=== PATIENT | male | born 1945 | race Caucasian/White ===

== ENCOUNTER 2019-04-13 16:45 | Inpatient (IN) | payer MEDICARE ==
[~2019-04-13] VITALS: Ht 175.3 cm; Wt 52.2 kg
[2019-04-13] MEDS ORDERED: PRED20TA (17:02)
[2019-04-13] MEDS ORDERED: CEFU1TAB22 (17:02)
[2019-04-13] MEDS ORDERED: ALBU8.5H INH (17:02)
[2019-04-13] MEDS ORDERED: methylPREDNISolone INJ 125 MG/2 ML VIAL (J2930) IV ONE (17:15)
[2019-04-13] MEDS: IPRATROPIUM 0.5MG/ALBUTEROL 2.5MG INH SOL UD 3ML (DUONEB)(J7620) NEB PRN ×2 (17:23→17:36)
[2019-04-13 17:27] LABS: BASO % 0.2 % (0.0-1.0); HEMATOCRIT 42.8 % (42.0-52.0); LYMPH # 0.7 10^3/uL (1.5-5.0); LYMPH % 3.6 % (24.0-44.0); MEAN CORPUSCULAR HEMOGLOBIN 30.4 pg (27.0-33.0); MEAN CORPUSCULAR HGB CONC 32.7 g/dl (32.0-36.5); MEAN CORPUSCULAR VOLUME 92.8 fl (80.0-96.0); MONO # 1.2 10^3/uL (0.0-0.8); MONO % 6.3 % (0.0-5.0); NEUTROPHILS # 16.9 10^3/uL (1.5-8.5); NEUTROPHILS % 88.6 % (36.0-66.0); PLATELET COUNT, AUTOMATED 196 10^3/uL (150-450); RED BLOOD COUNT 4.61 10^6/uL (4.30-6.10); WHITE BLOOD COUNT 19.1 10^3/uL (4.0-10.0)
[2019-04-13 17:30] LABS: ABG BASE EXCESS -7.4 (-2.0-2.0); ABG HCO3 16.5 MEQ/L (22.0-26.0); ABG O2 SATURATION 91.9 % (95.0-99.0); ABG PARTIAL PRESSURE CO2 29.2 mmHg (35.0-45.0); ABG PARTIAL PRESSURE O2 63.9 mmHg (75.0-100.0); ABG STANDARD HCO3 18.4 MEQ/L (22.0-26.0); ABG TOTAL CO2 17.4 MEQ/L (23.0-31.0); ABG pH (ARTERIAL) 7.369 UNITS (7.350-7.450)
[2019-04-13 18:03] LABS: INFLUENZA A AMPLIFICATION NEGATIVE (NEGATIVE); INFLUENZA B AMPLIFICATION NEGATIVE (NEGATIVE)
[2019-04-13 18:21] LABS: ALBUMIN 3.2 GM/DL (3.2-5.2); BILIRUBIN,DIRECT 1.2 MG/DL (0.0-0.2); BILIRUBIN,TOTAL 2.1 MG/DL (0.2-1.0); CALCIUM LEVEL 8.5 MG/DL (8.8-10.2); CK-MB VALUE MASS 15.2 NG/ML (<3.6); CREATININE FOR GFR 1.33 MG/DL (0.70-1.30); GLOMERULAR FILTRATION RATE 56.3 (>42); MB/CK RELATIVE INDEX 3.65 (< OR =4); POTASSIUM SERUM 5.6 MEQ/L (3.5-5.1); THYROID STIMULATING HORMONE 2.67 uIU/ML (0.358-3.740); TOTAL PROTEIN 6.6 GM/DL (6.4-8.2); TROPONIN I 0.11 NG/ML (< 0.10)
--- NOTE | 2019-04-13 18:33 | REPVR ---
PROCEDURE INFORMATION: Exam: US Duplex Lower Extremity Veins Exam date and time: 04/13/2019 6:26 PM Age: 73 years old Clinical indication: Edema, localized; Lower extremity, bilateral; Additional info: Edema, R/O dvt TECHNIQUE: Imaging protocol: Real-time duplex ultrasound of the Lower Extremities with 2-D henry scale, color Doppler flow and spectral waveform analysis with image documentation. Complete exam focused on the bilateral lower extremity veins. COMPARISON: No relevant prior studies available. FINDINGS: Right deep veins: Unremarkable. The common femoral, femoral, proximal profunda femoral and popliteal veins are patent without thrombus. Normal Doppler waveforms. Normal compressibility and/or augmentation response. Right superficial veins: Saphenofemoral junction is patent without thrombus. Left deep veins: Unremarkable. The common femoral, femoral, proximal profunda femoral and popliteal veins are patent without thrombus. Normal Doppler waveforms. Normal compressibility and/or augmentation response. Left superficial veins: Saphenofemoral junction is patent without thrombus. Soft tissues: Bilateral lower leg edema. IMPRESSION: Bilateral lower leg edema. No DVT. Electronically signed by: Carlos Koch On 04/13/2019 18:33:15 PM
[2019-04-13] MEDS ORDERED: ISOVUE-370 76% 100ML VIAL (Q9967) As Ordered ONE (18:51)
[2019-04-13 19:07] LABS: FREE T4 1.3 NG/DL (0.76-1.46)
[2019-04-13 19:43] LABS: OSMOLALITY URINE 788 MOSM/KG (500-800)
[2019-04-13 20:05] LABS: SODIUM,RANDOM URINE < 10 MEQ/L
--- NOTE | 2019-04-13 20:05 | REPVR ---
PROCEDURE INFORMATION: Exam: CT Angiography Chest With Contrast Exam date and time: 04/13/2019 7:35 PM Age: 73 years old Clinical indication: Chest pain; Additional info: SOB, hypoxia TECHNIQUE: Imaging protocol: Computed tomographic angiography of the chest with intravenous contrast. 3D rendering: MIP and/or 3D reconstructed images were created by the technologist. Radiation optimization: All CT scans at this facility use at least one of these dose optimization techniques: automated exposure control; mA and/or kV adjustment per patient size (includes targeted exams where dose is matched to clinical indication); or iterative reconstruction. Contrast material: ISOVUE 370; Contrast volume: 75 ml; Contrast route: IV; COMPARISON: No relevant prior studies available. FINDINGS: Pulmonary arteries: Normal. No pulmonary emboli. Aorta: The aorta demonstrates mild atherosclerotic calcification. There is fusiform dilatation of the ascending thoracic aorta which measures 3.8 cm. maximally. There is no saccular component. Lack of contrast in the aorta limits evaluation for dissection. Lungs: Mild centrilobular emphysema demonstrated in the mid and upper lung zones. Nodular opacity anterior left upper lobe measures 11 x 12 mm may represent a semi-solid nodule containing significant solid component versus a focus of peripheral airway disease. Coarse parenchymal infiltrates demonstrated in the right upper lobe, both lower lobes with small patchy foci demonstrated in the lingular lobe and right middle lobe. Findings may represent multifocal pneumonitis. Pleural space: Small bilateral pleural effusions. Heart: There is severe atherosclerotic calcification of the coronary arteries. Lymph nodes: There is diffuse mediastinal lymphadenopathy measuring up to 14 mm in the pretracheal retrocaval area, 14 mm in the as is as azygoesophageal recess, and 17 mm in the AP window. Bones/joints: The spine demonstrates mild degenerative changes. Soft tissues: There is soft tissue edema demonstrated in the thoracic wall consistent with anasarca. IMPRESSION: 1. Mild centrilobular emphysema demonstrated in the mid and upper lung zones. 2. Nodular opacity anterior left upper lobe measures represent a semi-solid nodule containing significant solid component versus a focus of peripheral airway disease. 3. Small bilateral pleural effusions. 4. Coarse parenchymal infiltrates demonstrated in the right upper lobe, both lower lobes with small patchy foci demonstrated in the lingular lobe and right middle lobe. Findings may represent multifocal pneumonitis. 5. Anasarca. 6. There is diffuse mediastinal lymphadenopathy measuring up to 14 mm in the pretracheal retrocaval area, 14 mm in the as is as azygoesophageal recess, and 17 mm in the AP window. 7. There is fusiform dilatation of the ascending thoracic aorta which measures 3.8 cm. maximally. There is no saccular component. Lack of contrast in the aorta limits evaluation for dissection. Follow-up CT imaging after treatment is completed suggested. Electronically signed by: Carlos Koch On 04/13/2019 20:05:10 PM
[2019-04-13] MEDS ORDERED: FUROSEMIDE 40 MG/4 ML VIAL (J1940) IV ONE (20:30)
[2019-04-13] MEDS ORDERED: NICOTINE 21MG/24HR 1 EA TRANSDERMAL TD ONE (20:45)
[2019-04-13] MEDS ORDERED: AZITHROMYCIN INJ 500 MG, VIAL MATE ADAPTER 1 EACH in D5W 250 ML IV SCH (22:00)
[2019-04-13] MEDS ORDERED: LEVALBUTEROL 1.25 MG/0.5 ML CONCENTRATE NEB INH PRN (22:30)
[2019-04-14 01:17] LABS: BLOOD UREA NITROGEN 41 MG/DL (7-18); CALCIUM LEVEL 8.4 MG/DL (8.8-10.2); CARBON DIOXIDE LEVEL 24 MEQ/L (21-32); CHLORIDE LEVEL 83 MEQ/L (98-107); CREATININE FOR GFR 1.06 MG/DL (0.70-1.30); GLOMERULAR FILTRATION RATE > 60.0 (>42); GLUCOSE, FASTING 128 MG/DL (70-100); POTASSIUM SERUM 5.5 MEQ/L (3.5-5.1); SODIUM LEVEL 119 MEQ/L (136-145)
[2019-04-14] MEDS: FUROSEMIDE 40 MG/4 ML VIAL (J1940) IV SCH ×5 (01:28→23:47)
[2019-04-14] MEDS: methylPREDNISolone INJ 40 MG/1 ML VIAL (J2920) IV SCH ×3 (01:44→17:24)
[2019-04-14] MEDS: LEVALBUTEROL 1.25 MG/0.5 ML CONCENTRATE NEB INH SCH ×7 (01:44→18:44)
[2019-04-14 02:01] LABS: BLOOD UREA NITROGEN 42 MG/DL (7-18); CALCIUM LEVEL 8.2 MG/DL (8.8-10.2); CARBON DIOXIDE LEVEL 24 MEQ/L (21-32); CHLORIDE LEVEL 83 MEQ/L (98-107); CREATININE FOR GFR 1.02 MG/DL (0.70-1.30); GLOMERULAR FILTRATION RATE > 60.0 (>42); GLUCOSE, FASTING 135 MG/DL (70-100); POTASSIUM SERUM 5.6 MEQ/L (3.5-5.1); SODIUM LEVEL 117 MEQ/L (136-145)
--- NOTE | 2019-04-14 02:05 | HPEPDOC ---
General Date of Admission Apr 13, 2019 at 21:52 Date of Service: Apr 13, 2019 Chief Complaint The patient is a 73-year-old male who presented to the emergency room with complaints of shortness of breath History of Present Illness Patient is a 73-year-old male with no significant past medical history who has presented to the emergency room with complaints of shortness of breath. Patient has reported that he has been experiencing shortness of breath around [place] and since that point has seen urgent care on March 24. At that point he was diagnosed with bronchitis and was given 10 days of cefotetan, prednisone and inhalers. Patient had failed to improve and subsequently followed up on April 03, he was given an additional 5 days of cefotetan. Patient followed up on April 07 while on cefotetan and still reported shortness of breath. They increased the dose of his prednisone and advised him to continue. Today, patient reported that he was experiencing worsening shortness of breath that has prompted him to come to the emergency room for further evaluation. Currently, he notes that hes experiencing shortness of breath with lower extremity swelling up to his abdomen. Patient reports that he does experience a cough with clear/yellow colored sputum without any evidence of blood. He does not experience any chest pain or palpitations. Patient denies any fevers or chills. He has not experienced any nausea, vomiting, abdominal pain, or constipation. . He has reported 2 loose bowel movements today. Patient denies any urinary discomfort, but does report increased frequency/urgency. Has reported that his appetite has been unchanged and reports he may have e xperienced changes in his weight. Home Medications Scheduled Albuterol Sulfate (Albuterol Sulfate Hfa) 8.5 Gm Hfa.aer.ad, 2 PUFF INH TID, (Reported) DR INSTRUCTED PT TO TAKE TID FOR TEN DAYS THEN CONTINUE NEEDED Allergies Coded Allergies: No Known Drug Allergies (Verified Allergy, Unknown, 04/13/19) Past Medical History Medical History Patient has not seen a provider in many years and reports no past medical history Surgical History Denies any prior surgeries Family History - Patient reports that he is adopted and is unsure of his family history Social History - Denies the use of alcohol or illicit drugs; patient is an active smoker of greater than 50 years at 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 [employer] Review of Systems Other systems 10 point review of systems complete, all negative otherwise stated in HPI Vital Signs - Vitals: BP 108/70, HR 102, RR 20, Sat 97%RA, Temp 96.9F - General: Lying in bed, No acute distress, Speaking in full sentences, AAOx3 - HEENT: NC, AT, PERRLA, EOMI - CVS: RRR, +S1S2 - Lungs: Diminished lung sounds at bases; mild wheezing appreciated bilaterally; mild crackles appreciated at bases, no rhonchi - Abdomen: Soft, Non-distended, Non-tender - Extremities: 3+ pitting edema up to the abdomen, No calf tenderness - Neuro: No focal motor or sensory deficit - Skin: No visible rashes Laboratory Data Labs 24H Laboratory Tests 2 04/13/19 17:12: Immature Granulocyte % (Auto) 1.3, Neutrophils (%) (Auto) 88.6H, Lymphocytes (%) (Auto) 3.6L, Monocytes (%) (Auto) 6.3H, Eosinophils (%) (Auto) 0.0, Basophils (%) (Auto) 0.2, Neutrophils # (Auto) 16.9H, Lymphocytes # (Auto) 0.7L, Monocytes # (Auto) 1.2H, Eosinophils # (Auto) 0.0, Basophils # (Auto) 0.0, Nucleated Red Blood Cells % (auto) 0.2H, Anion Gap 17H, Glomerular Filtration Rate 56.3, Calcium Level 8.5L, Total Bilirubin 2.1H, Direct Bilirubin 1.2H, Aspartate Amino Transf (AST/SGOT) 91H, Alanine Aminotransferase (ALT/SGPT) 239H, Alkaline Phosphatase 111, Total Creatine Kinase 417H, Creatine Kinase MB 15.2H, Creatine Kinase MB Relative Index 3.65, Troponin I 0.11H, NN-Itd-Y-Type Natriuretic Peptide 56398X, Total Protein 6.6, Albumin 3.2, Albumin/Globulin Ratio 0.94L, Thyroid Stimulating Hormone (TSH) 2.670, Free Thyroxine 1.30 04/13/19 17:17: Blood Gas Bicarbonate Standard 18.4L, Arterial Blood pH 7.369, Arterial Blood Partial Pressure CO2 29.2L, Arterial Blood Partial Pressure O2 63.9L, Arterial Blood Total CO2 17.4L, Arterial Blood HCO3 16.5L, Arterial Blood Base Excess - 7.4L, Arterial Blood Oxygen Saturation 91.9L 04/13/19 17:20: Influenza Type A (RT-PCR) NEGATIVE, Influenza Type B (RT-PCR) NEGATIVE 04/13/19 19:25: Urine Random Osmolality 788, Urine Random Creatinine 129.0, Urine Random Sodium < 10, Osmolality 263L 04/13/19 22:01: Anion Gap 10, Glomerular Filtration Rate > 60.0, Calcium Level 8.2L 04/13/19 23:12: Urine Color STRAW, Urine Appearance CLEAR, Urine pH 5.0, Urine Specific [place] 1.013, Urine Protein NEGATIVE, Urine Glucose (UA) NEGATIVE, Urine Ketones NEGATIVE, Urine Blood 1+H, Urine Nitrite NEGATIVE, Urine Bilirubin NEGATIVE, Urine Urobilinogen 0.2, Urine Leukocyte Esterase NEGATIVE, Urine WBC (Auto) 0, Urine RBC (Auto) 0, Urine Hyaline Casts (Auto) 0, Urine Bacteria (Auto) NEGATIVE, Urine Squamous Epithelial Cells 0, Urine Granular Casts (Auto) 1, Urine Sperm (Auto) 04/14/19 00:43: Anion Gap 12, Glomerular Filtration Rate > 60.0, Calcium Level 8.4L CBC/BMP Laboratory Tests 04/13/19 17:12 04/13/19 22:01 04/14/19 00:43 Microbiology Microbiology 04/14/19 Blood Culture, Received Pending 04/13/19 Respiratory Virus Panel (PCR) ([facility]INO) - Final, Complete Plan / VTE VTE Prophylaxis Ordered?: Yes Plan Plan Shortness of breath - possibly 2/2 fluid overload - 2/2 CHF, possibly 2/2 acute exacerbation of suspected obstructive lung disease, possibly 2/2 pneumonia (coverage for HCAP) - Patient has presented to the emergency room with complaint of shortness of breath that has failed to improve - He has failed outpatient antibiotics with cefotetan - Patient remains hemodynamically stable and afebrile - Mild leukocytosis is noted with neutrophil predominance - Significantly elevated BNP at 33,823 - CTA chest 04/14: 1. Mild centrilobular emphysema demonstrated in the mid and upper lung zones. 2. Nodular opacity anterior left upper lobe measures represent a semi-solid nodule containing significant solid component versus a focus of peripheral airway disease. 3. Small bilateral pleural effusions. 4. Coarse parenchymal infiltrates demonstrated in the right upper lobe, both lower lobes with small patchy foci demonstrated in the lingular lobe and right middle lobe. Findings may represent multifocal pneumonitis. 5. Anasarca. 6. There is diffuse mediastinal lymphadenopathy measuring up to 14 mm in the pretracheal retrocaval area, 14 mm in the as is as zygoesophageal recess, and 17 mm in the AP window. 7. There is fusiform dilatation of the ascending thoracic aorta which measures 3.8 cm. maximally. There is no saccular component. Lack of contrast in the aorta limits evaluation for dissection. Follow-up CT imaging after treatment is co mpleted suggested. - Respiratory panel negative - Will check ECHO, MRSA screen, blood cultures, sputum cultures - Will c/w telemetry monitoring / strict in and outs / daily weights - Will insert santamaria for accurate I/Os - Will continue with furosemide 40mg IV negative protocol / corticosteroids / in haled therapy as ordered / broad spectrum antibiotics (Zosyn) Hyponatremia - likely 2/2 hypotonic hypervolemic etiology - Patient appears to be grossly fluid overloaded - Will check serum & urine osmolality / thyroid function / cortisol baseline - Will continue to monitor BMP q4h - Will c/w diuresis (as stated above) Acute kidney injury - likely 2/2 cardiorenal syndrome - Will c/w diuresis (as stated above) Elevated AST / ALT - possibly 2/2 hepatic congestion 2/2 CHF, possibly 2/2 hepatitis - ALT > AST - Will check hepatitis profile - Will check US abdomen - Will continue to monitor counts Elevated troponin - possibly 2/2 demand ischemia (NSTEMI Type II) - 2/2 CHF - Patient denies chest pain or palpitations - EKG noted - set at 0.11; will trend troponins - Will c/w telemetry monitoring - Will continue with diuresis Hyperkalemia - Will c/w diuresis at this time - Will f/u repeat BMPs DVT prophylaxis - Will start Heparin ED GOMES MD Apr 14, 2019 02:05
[2019-04-14] MEDS: PIPERACILLIN/TAZOBACTAM SOD 3.375 GM in D5W MINI-BAG PLUS 50 ML IV SCH ×5 (02:15→23:47)
[2019-04-14 02:17] LABS: CK-MB VALUE MASS 18.3 NG/ML (<3.6); CPK CREATINE PHOSPHOKINASE 597 U/L (39-308); MB/CK RELATIVE INDEX 3.07 (< OR =4); TROPONIN I 0.12 NG/ML (< 0.10)
[2019-04-14 03:05] LABS: INR 1.52
--- NOTE | 2019-04-14 04:28 | REPVR ---
PROCEDURE INFORMATION: Exam: US Abdomen Limited, Right Upper Quadrant Exam date and time: 04/14/2019 3:24 AM Age: 73 years old Clinical indication: Abnormal findings; Abnormal lab test; Elevated liver enzymes; Additional info: Elevated ast / alt TECHNIQUE: Imaging protocol: Real-time ultrasound of the abdomen with image documentation. Examination was focused on the right upper quadrant. COMPARISON: No relevant prior studies available. FINDINGS: Pleural space: Trace right pleural effusion. Liver: 1 cm echogenic lesion in the left hepatic lobe possibly reflecting a hemangioma. Gallbladder: Trace pericholecystic fluid without specific signs of acute cholecystitis. Common bile duct: Normal. No stones. No dilation. Pancreas: Visualized pancreas is unremarkable. Right kidney: Normal. No mass. No hydronephrosis. IMPRESSION: 1 cm echogenic lesion in the left hepatic lobe possibly reflecting a hemangioma. Trace pericholecystic fluid without specific signs of acute cholecystitis. Electronically signed by: Stevie Vila On 04/14/2019 04:28:03 AM
[2019-04-14 04:40] LABS: ACETAMINOPHEN LEVEL < 2.0 UG/ML (10.0-30.0)
[2019-04-14 05:46] LABS: BASO % 0.2 % (0.0-1.0); HEMATOCRIT 40.2 % (42.0-52.0); HEMOGLOBIN 13.4 g/dl (13.5-17.5); LYMPH # 0.4 10^3/uL (1.5-5.0); LYMPH % 1.6 % (24.0-44.0); MEAN CORPUSCULAR HGB CONC 33.3 g/dl (32.0-36.5); MEAN CORPUSCULAR VOLUME 89.9 fl (80.0-96.0); MONO # 1.1 10^3/uL (0.0-0.8); MONO % 4.6 % (0.0-5.0); NEUTROPHILS # 21.8 10^3/uL (1.5-8.5); PLATELET COUNT, AUTOMATED 164 10^3/uL (150-450); RED BLOOD COUNT 4.47 10^6/uL (4.30-6.10); WHITE BLOOD COUNT 23.5 10^3/uL (4.0-10.0)
[2019-04-14 06:27] LABS: BILIRUBIN,TOTAL 2.4 MG/DL (0.2-1.0); CALCIUM LEVEL 8.2 MG/DL (8.8-10.2); CK-MB VALUE MASS 23.3 NG/ML (<3.6); CREATININE FOR GFR 1.28 MG/DL (0.70-1.30); GLOMERULAR FILTRATION RATE 58.8 (>42); MAGNESIUM LEVEL 2.1 MG/DL (1.8-2.4); MB/CK RELATIVE INDEX 2.36 (< OR =4); POTASSIUM SERUM 5.4 MEQ/L (3.5-5.1); TROPONIN I 0.16 NG/ML (< 0.10)
[2019-04-14] MEDS: HEPARIN SOD (PORCINE) 5000 UNITS/ML VIAL (J1644 PER 1000UNITS) SC SCH ×3 (07:10→21:35)
[2019-04-14] MEDS ORDERED: FLUBLOK(EGG FREE)(QUAD)INFLUENZA VACC 0.5ML SYRINGE (90682)18YRS&OLDER IM PRN (09:00)
[2019-04-14 14:30] VITALS: BP 118/61
[2019-04-14 16:00] VITALS: BP 120/72
[2019-04-14 17:22] LABS: CALCIUM LEVEL 8.8 MG/DL (8.8-10.2); CREATININE FOR GFR 1.27 MG/DL (0.70-1.30); GLOMERULAR FILTRATION RATE 59.3 (>42); POTASSIUM SERUM 5.2 MEQ/L (3.5-5.1)
--- NOTE | 2019-04-14 20:39 | ECGEPIP ---
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
[2019-04-14 21:00] VITALS: BP 114/64
[2019-04-14] MEDS: AZITHROMYCIN 250 MG TAB PO SCH (21:36)
[2019-04-15] VITALS (23 sets, daily range): BP systolic 76–125; BP diastolic 49–89
[2019-04-15 00:11] LABS: BLOOD UREA NITROGEN 42 MG/DL (7-18); CALCIUM LEVEL 8.4 MG/DL (8.8-10.2); CARBON DIOXIDE LEVEL 25 MEQ/L (21-32); CHLORIDE LEVEL 86 MEQ/L (98-107); CREATININE FOR GFR 1.21 MG/DL (0.70-1.30); GLOMERULAR FILTRATION RATE > 60.0 (>42); GLUCOSE, FASTING 114 MG/DL (70-100); POTASSIUM SERUM 4.5 MEQ/L (3.5-5.1); SODIUM LEVEL 122 MEQ/L (136-145)
[2019-04-15] MEDS: LEVALBUTEROL 1.25 MG/0.5 ML CONCENTRATE NEB INH SCH ×7 (00:12→23:38)
[2019-04-15] MEDS: methylPREDNISolone INJ 40 MG/1 ML VIAL (J2920) IV SCH ×3 (01:23→16:56)
[2019-04-15 04:12] LABS: BASO % 0.1 % (0.0-1.0); HEMATOCRIT 37.7 % (42.0-52.0); HEMOGLOBIN 12.6 g/dl (13.5-17.5); LYMPH # 0.5 10^3/uL (1.5-5.0); LYMPH % 2.3 % (24.0-44.0); MEAN CORPUSCULAR HEMOGLOBIN 29.7 pg (27.0-33.0); MEAN CORPUSCULAR HGB CONC 33.4 g/dl (32.0-36.5); MEAN CORPUSCULAR VOLUME 88.9 fl (80.0-96.0); MONO # 0.8 10^3/uL (0.0-0.8); MONO % 3.6 % (0.0-5.0); NEUTROPHILS # 20.2 10^3/uL (1.5-8.5); NEUTROPHILS % 93.4 % (36.0-66.0); PLATELET COUNT, AUTOMATED 154 10^3/uL (150-450); RED BLOOD COUNT 4.24 10^6/uL (4.30-6.10); WHITE BLOOD COUNT 21.6 10^3/uL (4.0-10.0)
[2019-04-15] MEDS ORDERED: METOPROLOL 5 MG/5 ML VIAL IV STA (04:33)
[2019-04-15] MEDS ORDERED: METOPROLOL 5 MG/5 ML VIAL As Ordered ONE (04:33)
[2019-04-15 04:41] LABS: ALBUMIN 2.7 GM/DL (3.2-5.2); ALT/SGPT 375 U/L (12-78); BILIRUBIN,TOTAL 1.6 MG/DL (0.2-1.0); BLOOD UREA NITROGEN 42 MG/DL (7-18); CALCIUM LEVEL 8.2 MG/DL (8.8-10.2); CARBON DIOXIDE LEVEL 25 MEQ/L (21-32); CHLORIDE LEVEL 85 MEQ/L (98-107); CREATININE FOR GFR 1.25 MG/DL (0.70-1.30); GLOMERULAR FILTRATION RATE > 60.0 (>42); GLUCOSE, FASTING 124 MG/DL (70-100); POTASSIUM SERUM 4.7 MEQ/L (3.5-5.1); SODIUM LEVEL 122 MEQ/L (136-145); TOTAL PROTEIN 5.7 GM/DL (6.4-8.2)
[2019-04-15] MEDS ORDERED: METOPROLOL TART 25 MG TABLET PO ONE (05:00)
[2019-04-15] MEDS: PIPERACILLIN/TAZOBACTAM SOD 3.375 GM in D5W MINI-BAG PLUS 50 ML IV SCH ×4 (05:18→23:25)
[2019-04-15] MEDS: HEPARIN SOD (PORCINE) 5000 UNITS/ML VIAL (J1644 PER 1000UNITS) SC SCH ×3 (05:19→21:36)
[2019-04-15] MEDS: FUROSEMIDE 40 MG/4 ML VIAL (J1940) IV SCH ×4 (06:00→23:28)
--- NOTE | 2019-04-15 07:05 | ECGEPIP ---
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
[2019-04-15] MEDS ORDERED: DIGOXIN INJ 0.5 MG/2 ML AMP (J1160) IV ONE (08:30)
[2019-04-15] MEDS: SENOKOT S TAB PO SCH ×2 (09:00→21:00)
[2019-04-15] MEDS: NICOTINE 21MG/24HR 1 EA TRANSDERMAL TD SCH (09:12)
[2019-04-15 10:13] LABS: HEPATITIS B SURFACE ANTIGEN NEGATIVE (NEGATIVE)
[2019-04-15 10:41] LABS: HEPATITIS B CORE ANTIBODY IGM NEGATIVE (NEGATIVE); HEPATITIS C VIRUS ABY INDEX < 0.0 INDEX (<0.8)
[2019-04-15 10:43] LABS: HEPATITIS A ANTIBODY IGM NEGATIVE (NEGATIVE)
[2019-04-15] MEDS ORDERED: DIGOXIN 0.125 MG TAB PO ONE (11:30)
--- NOTE | 2019-04-15 12:32 | IPNPDOC ---
Subjective Date Seen The patient was seen on 04/14/19. Subjective Chief Complaint/HPI Feels a little better, says his leg swelling has gone down and he is urinating well. Breathing and cough is a little better. Objective Physical Examination General Exam: Positive: Alert, Cooperative, No Acute Distress Eye Exam: Positive: PERRLA, Conjunctiva & lids normal, EOMI; Negative: Sclera icteric ENT Exam: Positive: Atraumatic, Mucous membr. moist/pink, Pharynx Normal Neck Exam: Positive: JVD Chest Exam: Positive: Rales, Rhonchi, Wheezing Heart Exam: Positive: Rate Normal, Regular Rhythm, Normal S1, Normal S2, Murmurs; Negative: Rubs Abdomen Exam: Positive: Normal bowel sounds, Soft; Negative: Tenderness, Hepatospenomegaly Extremity Exam: Positive: Edema; Negative: Clubbing, Cyanosis Neuro Exam: Positive: Normal Speech, Cranial Nerves 3-12 NL, Reflexes 2+ Assessment /Plan Assessment Shortness of breath - possibly 2/2 fluid overload - 2/2 CHF, possibly 2/2 acute exacerbation of suspected obstructive lung disease, possibly 2/2 pneumonia (coverage for HCAP) - Patient has presented to the emergency room with complaint of shortness of breath that has failed to improve - He has failed outpatient antibiotics with cefotetan - Patient remains hemodynamically stable and afebrile - Mild leukocytosis is noted with neutrophil predominance - Significantly elevated BNP at 33,823 - CTA chest 04/14: 1. Mild centrilobular emphysema demonstrated in the mid and upper lung zones. 2. Nodular opacity anterior left upper lobe measures represent a semi-solid nodule containing significant solid component versus a focus of peripheral airway disease. 3. Small bilateral pleural effusions. 4. Coarse parenchymal infiltrates demonstrated in the right upper lobe, both lower lobes with small patchy foci demonstrated in the lingular lobe and right middle lobe. Findings may represent multifocal pneumonitis. 5. Anasarca. 6. There is diffuse mediastinal lymphadenopathy measuring up to 14 mm in the pretracheal retrocaval area, 14 mm in the as is as zygoesophageal recess, and 17 mm in the AP window. 7. There is fusiform dilatation of the ascending thoracic aorta which measures 3.8 cm. maximally. There is no saccular component. Lack of contrast in the aorta limits evaluation for dissection. Follow-up CT imaging after treatment is completed suggested. - Respiratory panel negative - Will check ECHO, MRSA screen, blood cultures, sputum cultures - Will c/w telemetry monitoring / strict in and outs / daily weights - Will insert santamaria for accurate I/Os - Will continue with furosemide 40mg IV negative protocol / corticosteroids / inhaled therapy as ordered / broad spectrum antibiotics (Zosyn) Hyponatremia - likely 2/2 hypotonic hypervolemic etiology - Patient appears to be grossly fluid overloaded - Will check serum & urine osmolality / thyroid function / cortisol baseline - Will continue to monitor BMP q4h - Will c/w diuresis (as stated above) Acute kidney injury - likely 2/2 cardiorenal syndrome - Will c/w diuresis (as stated above) Elevated AST / ALT - possibly 2/2 hepatic congestion 2/2 CHF, possibly 2/2 hepatitis - ALT > AST - Will check hepatitis profile - Will check US abdomen - Will continue to monitor counts Elevated troponin - possibly 2/2 demand ischemia (NSTEMI Type II) - 2/2 CHF - Patient denies chest pain or palpitations - EKG noted - set at 0.11; will trend troponins - Will c/w telemetry monitoring - Will continue with diuresis Hyperkalemia - Will c/w diuresis at this time - Will f/u repeat BMPs DVT prophylaxis - Will start Heparin Plan/VTE VTE Prophylaxis Ordered?: Yes VS, I&O, 24H, [facility] Vital Signs/I&O Vital Signs Date Time Temp Pulse Resp B/P (MAP) Pulse Ox O2 Delivery O2 Flow Rate FiO2 04/14/19 11:15 98 116/71 (86) 94 04/14/19 03:19 Room Air 04/14/19 01:45 2.0 04/13/19 18:54 20 04/13/19 16:56 96.9 I&O- Last 24 Hours up to 6 AM 04/14/19 06:00 Intake Total 545 ml Output Total 825 ml Balance -280 ml Laboratory Data 24H LABS Laboratory Tests 2 04/13/19 17:12: Immature Granulocyte % (Auto) 1.3, Neutrophils (%) (Auto) 88.6H, Lymphocytes (%) (Auto) 3.6L, Monocytes (%) (Auto) 6.3H, Eosinophils (%) (Auto) 0.0, Basophils (%) (Auto) 0.2, Neutrophils # (Auto) 16.9H, Lymphocytes # (Auto) 0.7L, Monocytes # (Auto) 1.2H, Eosinophils # (Auto) 0.0, Basophils # (Auto) 0.0, Nucleated Red B lood Cells % (auto) 0.2H, Anion Gap 17H, Glomerular Filtration Rate 56.3, Calcium Level 8.5L, Total Bilirubin 2.1H, Direct Bilirubin 1.2H, Aspartate Amino Transf (AST/SGOT) 91H, Alanine Aminotransferase (ALT/SGPT) 239H, Alkaline Phosphatase 111, Total Creatine Kinase 417H, Creatine Kinase MB 15.2H, Creatine Kinase MB Relative Index 3.65, Troponin I 0.11H, EF-Dgw-O-Type Natriuretic Peptide 96380A, Total Protein 6.6, Albumin 3.2, Albumin/Globulin Ratio 0.94L, Thyroid Stimulating Hormone (TSH) 2.670, Free Thyroxine 1.30 04/13/19 17:17: Blood Gas Bicarbonate Standard 18.4L, Arterial Blood pH 7.369, Arterial Blood Partial Pressure CO2 29.2L, Arterial Blood Partial Pressure O2 63.9L, Arterial Blood Total CO2 17.4L, Arterial Blood HCO3 16.5L, Arterial Blood Base Excess -7.4L, Arterial Blood Oxygen Saturation 91.9L 04/13/19 17:20: Influenza Type A (RT-PCR) NEGATIVE, Influenza Type B (RT-PCR) NEGATIVE 04/13/19 19:25: Urine Random Osmolality 788, Urine Random Creatinine 129.0, Urine Random Sodium < 10, Osmolality 263L 04/13/19 22:01: Anion Gap 10, Glomerular Filtration Rate > 60.0, Calcium Level 8.2L, Total C reatine Kinase 597H, Creatine Kinase MB 18.3H, Creatine Kinase MB Relative Index 3.07, Troponin I 0.12H, Acetaminophen Level < 2.0L 04/13/19 23:12: Urine Color STRAW, Urine Appearance CLEAR, Urine pH 5.0, Urine Specific [place] 1.013, Urine Protein NEGATIVE, Urine Glucose (UA) NEGATIVE, Urine Ketones NEGATIVE, Urine Blood 1+H, Urine Nitrite NEGATIVE, Urine Bilirubin NEGATIVE, Urine Urobilinogen 0.2, Urine Leukocyte Esterase NEGATIVE, Urine WBC (Auto) 0, Urine RBC (Auto) 0, Urine Hyaline Casts (Auto) 0, Urine Bacteria (Auto) NEGATIVE, Urine Squamous Epithelial Cells 0, Urine Granular Casts (Auto) 1, Urine Sperm (Auto) 04/14/19 00:43: Anion Gap 12, Glomerular Filtration Rate > 60.0, Calcium Level 8.4L 04/14/19 02:38: Prothrombin Time 18.0H, Prothromb Time International Ratio 1.52 04/14/19 05:33: Immature Granulocyte % (Auto) 0.6, Neutrophils (%) (Auto) 93.0H, Lymphocytes (%) (Auto) 1.6L, Monocytes (%) (Auto) 4.6, Eosinophils (%) (Auto) 0.0, Basophils (%) (Auto) 0.2, Neutrophils # (Auto) 21.8H, Lymphocytes # (Auto) 0.4L, Monocytes # (Auto) 1.1H, Eosinophils # (Auto) 0.0, Basophils # (Auto) 0.0, Nucleated Red Blood Cells % (auto) 0.1H, Anion Gap 11, Glomerular Filtration Rate 58.8, Calcium Level 8.2L, Magnesium Level 2.1, Total Bilirubin 2.4H, Aspartate Amino Transf (AST/SGOT) 303H, Alanine Aminotransferase (ALT/SGPT) 448H, Alkaline Phosphatase 101, Total Creatine Kinase 986H, Creatine Kinase MB 23.3H, Creatine Kinase MB Relative Index 2.36, Troponin I 0.16#H, Total Protein 6.0L, Albumin 3.0L, Albumin/Globulin Ratio 1.00 CBC/BMP Laboratory Tests 04/13/19 17:12 04/13/19 22:01 04/14/19 00:43 04/14/19 05:33 Microbiology Microbiology 04/14/19 Blood Culture, Received Pending 04/14/19 Blood Culture, Received Pending 04/13/19 Respiratory Virus Panel (PCR) ([facility]) - Final, Complete WAQAS ADAN MD Apr 14, 2019 12:06
--- NOTE | 2019-04-15 12:53 | IPNPDOC ---
Subjective Date Seen The patient was seen on 04/15/19. Subjective Chief Complaint/HPI Patient says he is feeling much better, His SOb is better, his leg swelling is going down. Denies any palpitation or chest pain. denies any abdominal pain, nausea or vomiting. Overnight he went into Afib with RVr. Objective Physical Examination General Exam: Positive: Alert, Cooperative, No Acute Distress Eye Exam: Positive: PERRLA, Conjunctiva & lids normal, EOMI; Negative: Sclera icteric ENT Exam: Positive: Atraumatic, Mucous membr. moist/pink, Pharynx Normal Neck Exam: Positive: JVD Chest Exam: Positive: Rales, Rhonchi, Wheezing Heart Exam: Positive: Tachycardic, Irregular Rhythm, Normal S1, Normal S2, Murmurs; Negative: Rubs Telemetry: Positive: Atrial fibrillation Abdomen Exam: Positive: Normal bowel sounds, Soft; Negative: Tenderness, Hepatospenomegaly Extremity Exam: Positive: Edema (improving); Negative: Clubbing, Cyanosis Neuro Exam: Positive: Normal Speech, Cranial Nerves 3-12 NL, Reflexes 2+ Assessment /Plan Assessment 73 year old male with h/o hay fever, allergies, asthma as a teenager which disappeared ad has been healthy and not seen a doctor for many years started experiencing shortness of breath around [place] and since that point has seen urgent care on March 24. At that point he was diagnosed with bronchitis and was given 10 days of cefotetan, prednisone and inhalers. had 2 other follow ups with no improvement so came to the ed. In the ED he was found to have acute CHF, COPD exacerbation and pneumonia/ pneumonitis CTA chest 04/14: 1. Mild centrilobular emphysema demonstrated in the mid and upper lung zones. 2. Nodular opacity anterior left upper lobe measures represent a semi-solid nodule containing significant solid component versus a focus of peripheral airway disease. 3. Small bilateral pleural effusions. 4. Coarse parenchymal infiltrates demonstrated in the right upper lobe, both lower lobes with small patchy foci demonstrated in the lingular lobe and right middle lobe. Findings may represent multifocal pneumonitis. 5. Anasarca. 6. There is diffuse mediastinal lymphadenopathy measuring up to 14 mm in the pretracheal retrocaval area, 14 mm in the as is as zygoesophageal recess, and 17 mm in the AP window. 7. There is fusiform dilatation of the ascending thoracic aorta which measures 3.8 cm. maximally. There is no saccular component. Lack of contrast in the aorta limits evaluation for dissection. Follow-up CT imaging after treatment is completed suggested. Afib with RVR new onset BP soft will give digoxin IV loading will consider diltiazem if needed and if tolerated by BP. will consult cardiology. Acute CHF, possibly 2/2 acute exacerbation of suspected obstructive lung disease, possibly 2/2 pneumonia (coverage for HCAP) Patient has presented to the emergency room with complaint of shortness of breath that has failed to improve Significantly elevated BNP at 33,823 Echo ordered will continue with IV lasix as tolerated with BP. COPD/ emphysima exacerbation has not been diagnosed with COPD but is a long time smoker. Also CT chest shows emphysema will continue with xopenex, steroids Pneumonia failed outpateint antibiotics. on zosy Hyponatremia due to CHF wit hypervolemia continue with diuresis. Acute kidney injury likely 2/2 cardiorenal syndrome Will c/w diuresis (as stated above) Elevated AST / ALT - possibly 2/2 hepatic congestion 2/2 CHF hepatits panel in progress continue lasix. Elevated troponin possibly 2/2 demand ischemia (NSTEMI Type II) - 2/2 CHF Vs false elevation of troponins due to CHF. No signs or symptoms of acute ischemia. Hyperkalemia resolved DVT prophylaxis Heparin Plan/VTE VTE Prophylaxis Ordered?: Yes VS, I&O, 24H, Fishbone Vital Signs/I&O Vital Signs Date Time Temp Pulse Resp B/P (MAP) Pulse Ox O2 Delivery O2 Flow Rate FiO2 04/15/19 11:46 133 04/15/19 10:42 125/54 (77) 97 Room Air 04/15/19 07:38 18 04/15/19 04:02 97.7 04/14/19 01:45 2.0 I&O- Last 24 Hours up to 6 AM 04/15/19 05:59 Intake Total 1030 ml Output Total 2040 ml Balance -1010 ml Laboratory Data 24H LABS Laboratory Tests 2 04/14/19 14:39: Methicillin-Resist S.aureus DNA PCR NOT DETECTED 04/14/19 16:43: Anion Gap 13, Glomerular Filtration Rate 59.3, Calcium Level 8.8 04/14/19 23:36: Anion Gap 11, Glomerular Filtration Rate > 60.0, Calcium Level 8.4L, Magnesium Level 2.0 04/15/19 04:00: Anion Gap 12, Glomerular Filtration Rate > 60.0, Calcium Level 8.2L, Magnesium Level 2.0, Immature Granulocyte % (Auto) 0.6, Neutrophils (%) (Auto) 93.4H, Lymphocytes (%) (Auto) 2.3L, Monocytes (%) (Auto) 3.6, Eosinophils (%) (Auto) 0.0, Basophils (%) (Auto) 0.1, Neutrophils # (Auto) 20.2H, Lymphocytes # (Auto) 0.5L, Monocytes # (Auto) 0.8, Eosinophils # (Auto) 0.0, Basophils # (Auto) 0.0, Nucleated Red Blood Cells % (auto) 0.2H, Total Bilirubin 1.6H, Aspartate Amino Transf (AST/SGOT) 191H, Alanine Aminotransferase (ALT/SGPT) 375H, Alkaline Phosphatase 86, Total Protein 5.7L, Albumin 2.7L, Albumin/Globulin Ratio 0.90L CBC/BMP Laboratory Tests 04/14/19 16:43 04/14/19 23:36 04/15/19 04:00 Microbiology Microbiology 04/14/19 Gram Stain - Final, Complete 04/14/19 Sputum Culture - Final, Complete 04/14/19 Blood Culture - Preliminary, Resulted No growth after 24 hours . All specim... 04/14/19 Blood Culture - Preliminary, Resulted No growth after 24 hours . All specim... 04/13/19 Respiratory Virus Panel (PCR) ([facility]) - Final, Complete WAQAS ADAN MD Apr 15, 2019 12:35
[2019-04-15] MEDS ORDERED: BISACODYL 5 MG TAB PO ONE (14:00)
[2019-04-15 17:27] LABS: CALCIUM LEVEL 8.4 MG/DL (8.8-10.2); CREATININE FOR GFR 1.73 MG/DL (0.70-1.30); GLOMERULAR FILTRATION RATE 41.5 (>42); POTASSIUM SERUM 4.7 MEQ/L (3.5-5.1)
[2019-04-15] MEDS ORDERED: AMIODARONE HCL 150 MG in IV 1 EA IV STA (19:17)
--- NOTE | 2019-04-15 20:35 | ECHO ---
DATE OF PROCEDURE: 04/15/2019 REFERRING PHYSICIAN: Phuong Locke MD PATIENT LOCATION: Room 3202 REASON FOR ECHOCARDIOGRAM: Sob. 2D MEASUREMENTS: IVS: 1.0 cm LV: 6.4 cm LVPW: 1.0 cm LA: 4.3 cm Aorta: 3.8 cm IVC: 2.5 cm DOPPLER MEASUREMENTS: Peak velocity across the aortic valve: 0/67 m/s Mitral E: 0.91 Maximum tricuspid valve velocity: 2.7 m/s 2D COMMENTS: 1. Mildly enlarged left ventricle with normal left ventricular wall thickness but a severely depressed global left ventricular systolic function. There was severe diffuse global hypokinesis and the estimated left ventricular systolic ejection fraction is 10-20%. 2. Mildly enlarged left atrium. The right atrium also appear to be mildly enlarged. Normal right ventricle. 3. The atrial septum appeared to be normal without evidence of defect or shunt. 4. Mildly enlarged aortic root at 3.8 cm. 5. Trace pericardial effusion noted, no evidence of cardiac tamponade. 6. Mildly calcified aortic valve with normal leaflet excursion. Mildly calcified mitral annulus with normal anterior mitral leaflet motion. Normal tricuspid valve and pulmonic valve. The proximal pulmonary artery branches were not well visualized. 7. The inferior vena cava was mildly enlarged, central venous pressure is most likely elevated. DOPPLER: It detects mild aortic regurgitation, moderate mitral regurgitation, mild pulmonic regurgitation, and moderate tricuspid regurgitation. The calculated pulmonary artery systolic pressure varies between 30-40 mmHg. Assessment of the left ventricular diastolic function was limited in view of the underlying atrial fibrillation. IMPRESSION 1. Severe global left ventricular systolic dysfunction with diffuse hypokinesis and enlarged left ventricle. Assessment of the left ventricular diastolic function was limited in view of the underlying atrial fibrillation. 2. Aortic valve sclerosis with mild aortic regurgitation, but no aortic stenosis. 3. Mitral annulus calcification with mildly enlarged left atrium and moderate mitral regurgitation. 4. Moderate tricuspid regurgitation with mild pulmonary hypertension. The right atrium is also mildly enlarged. 5. Mild pulmonic regurgitation. 6. Trace pericardial effusion, no evidence of cardiac tamponade. 7. There was evidence of elevated central venous pressure, the inferior vena cava was mildly enlarged. MTDD
[2019-04-15] MEDS: AZITHROMYCIN 250 MG TAB PO SCH (21:35)
[2019-04-16] VITALS (7 sets, daily range): BP systolic 96–151; BP diastolic 70–84
[2019-04-16] MEDS: methylPREDNISolone INJ 40 MG/1 ML VIAL (J2920) IV SCH ×3 (00:01→17:47)
[2019-04-16] MEDS ORDERED: AMIODARONE HCL 150 MG in IV 1 EA IV STA (00:12)
[2019-04-16] MEDS ORDERED: DIGOXIN INJ 0.5 MG/2 ML AMP (J1160) IV ONE ×2 (01:00→15:00)
[2019-04-16] MEDS: METOPROLOL TART 12.5 MG PER 1/2 TAB PO SCH ×4 (02:27→17:49)
[2019-04-16] MEDS: PIPERACILLIN/TAZOBACTAM SOD 3.375 GM in D5W MINI-BAG PLUS 50 ML IV SCH ×3 (05:03→17:47)
[2019-04-16] MEDS: HEPARIN SOD (PORCINE) 5000 UNITS/ML VIAL (J1644 PER 1000UNITS) SC SCH ×3 (05:03→21:46)
[2019-04-16 06:50] LABS: BASO % 0.1 % (0.0-1.0); HEMATOCRIT 37.2 % (42.0-52.0); HEMOGLOBIN 12.8 g/dl (13.5-17.5); LYMPH # 0.6 10^3/uL (1.5-5.0); LYMPH % 3.2 % (24.0-44.0); MEAN CORPUSCULAR HEMOGLOBIN 30.2 pg (27.0-33.0); MEAN CORPUSCULAR HGB CONC 34.4 g/dl (32.0-36.5); MEAN CORPUSCULAR VOLUME 87.7 fl (80.0-96.0); MONO # 0.5 10^3/uL (0.0-0.8); MONO % 2.6 % (0.0-5.0); NEUTROPHILS # 17.1 10^3/uL (1.5-8.5); NEUTROPHILS % 93.4 % (36.0-66.0); PLATELET COUNT, AUTOMATED 161 10^3/uL (150-450); RED BLOOD COUNT 4.24 10^6/uL (4.30-6.10); WHITE BLOOD COUNT 18.3 10^3/uL (4.0-10.0)
[2019-04-16 07:17] LABS: ALBUMIN 2.5 GM/DL (3.2-5.2); BILIRUBIN,TOTAL 2.4 MG/DL (0.2-1.0); CALCIUM LEVEL 7.9 MG/DL (8.8-10.2); CREATININE FOR GFR 1.85 MG/DL (0.70-1.30); GLOMERULAR FILTRATION RATE 38.4 (>42); MAGNESIUM LEVEL 2.2 MG/DL (1.8-2.4); POTASSIUM SERUM 4.6 MEQ/L (3.5-5.1); TOTAL PROTEIN 5.6 GM/DL (6.4-8.2)
--- NOTE | 2019-04-16 07:33 | ECGEPIP ---
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
[2019-04-16] MEDS: NICOTINE 21MG/24HR 1 EA TRANSDERMAL TD SCH (08:55)
[2019-04-16] MEDS: SENOKOT S TAB PO SCH ×2 (08:56→20:43)
[2019-04-16] MEDS: LEVALBUTEROL 1.25 MG/0.5 ML CONCENTRATE NEB INH SCH ×3 (08:58→23:46)
[2019-04-16] MEDS ORDERED: PREVNAR 13 VACCINE SYRINGE (CPT CODE:90670) IM PRN (09:00)
[2019-04-16] MEDS ORDERED: PREVNAR 13 VACCINE SYRINGE (CPT CODE:90670) IM ONE (09:00)
--- NOTE | 2019-04-16 11:38 | IPNPDOC ---
Subjective Date Seen The patient was seen on 04/16/19. Subjective Chief Complaint/HPI Says SOb is getting better, cough is better, leg swelling is improving. His heart rate remains uncontrolled but he does not complain of any palpitation. Objective Physical Examination General Exam: Positive: Alert, Cooperative, No Acute Distress Eye Exam: Positive: PERRLA, Conjunctiva & lids normal, EOMI; Negative: Sclera icteric ENT Exam: Positive: Atraumatic, Mucous membr. moist/pink, Pharynx Normal Neck Exam: Positive: JVD Chest Exam: Positive: Rales, Rhonchi, Wheezing Heart Exam: Positive: Tachycardic, Irregular Rhythm, Normal S1, Normal S2, Murmurs; Negative: Rubs Telemetry: Positive: Atrial fibrillation Abdomen Exam: Positive: Normal bowel sounds, Soft; Negative: Tenderness, Hepatospenomegaly Extremity Exam: Positive: Edema (improving); Negative: Clubbing, Cyanosis Neuro Exam: Positive: Normal Speech, Cranial Nerves 3-12 NL, Reflexes 2+ Assessment /Plan Assessment 73 year old male with h/o hay fever, allergies, asthma as a teenager which disappeared ad has been healthy and not seen a doctor for many years started experiencing shortness of breath around [place] and since that point has seen urgent care on March 24. At that point he was diagnosed with bronchitis and was given 10 days of cefotetan, prednisone and inhalers. had 2 other follow ups with no improvement so came to the ed. In the ED he was found to have acute CHF, COPD exacerbation and pneumonia/ pneumonitis CTA chest 04/14: 1. Mild centrilobular emphysema demonstrated in the mid and upper lung zones. 2. Nodular opacity anterior left upper lobe measures represent a semi-solid nodule containing significant solid component versus a focus of peripheral airway disease. 3. Small bilateral pleural effusions. 4. Coarse parenchymal infiltrates demonstrated in the right upper lobe, both lower lobes with small patchy foci demonstrated in the lingular lobe and right middle lobe. Findings may represent multifocal pneumonitis. 5. Anasarca. 6. There is diffuse mediastinal lymphadenopathy measuring up to 14 mm in the pretracheal retrocaval area, 14 mm in the as is as zygoesophageal recess, and 17 mm in the AP window. 7. There is fusiform dilatation of the ascending thoracic aorta which measures 3.8 cm. maximally. There is no saccular component. Lack of contrast in the aorta limits evaluation for dissection. Follow-up CT imaging after treatment is completed suggested. Afib with RVR new onset getting digoxin and betablocker received amiodarone consulted cardiology. Acute Exacerbation of Systolic CHF, possibly 2/2 acute exacerbation of COPD possibly 2/2 pneumonia (coverage for HCAP) EF of 10% to 20%. diastolic function could not be determined as patient in Afib. Significantly elevated BNP at 33,823 Will hold lasix as creatinine worsening. Valvular heart disease Moderate Mitral regurgitation, tricuspid reguritation. COPD/ emphysima exacerbation has not been diagnosed with COPD but is a long time smoker. Also CT chest shows emphysema will continue with xopenex, steroids Pneumonia failed outpatient antibiotics. on zosyn Hyponatremia due to CHF wit hypervolemia Acute kidney injury likely 2/2 cardiorenal syndrome with diuresis and intravascular volme depletion will hold lasix Elevated AST / ALT - possibly 2/2 hepatic congestion 2/2 CHF hepatits panel negative worse today. Elevated troponin possibly 2/2 demand ischemia (NSTEMI Type II) - 2/2 CHF Vs false elevation of troponins due to CHF. No signs or symptoms of acute ischemia. Hyperkalemia resolved DVT prophylaxis Heparin Plan/VTE VTE Prophylaxis Ordered?: Yes VS, I&O, 24H, Fishbone Vital Signs/I&O Vital Signs Date Time Temp Pulse Resp B/P (MAP) Pulse Ox O2 Delivery O2 Flow Rate FiO2 04/16/19 05:59 117 96/72 04/16/19 04:00 98.2 18 93 Room Air 04/14/19 01:45 2.0 I&O- Last 24 Hours up to 6 AM 04/16/19 06:00 Intake Total 1530 ml Output Total 550 ml Balance 980 ml Laboratory Data 24H LABS Laboratory Tests 2 04/15/19 16:50: Anion Gap 13, Glomerular Filtration Rate 41.5L, Calcium Level 8.4L CBC/BMP Laboratory Tests 04/15/19 16:50 Microbiology Microbiology 04/14/19 Gram Stain - Final, Complete 04/14/19 Sputum Culture - Final, Complete 04/14/19 Blood Culture - Preliminary, Resulted No Growth after 48 hours. All Specime... 04/14/19 Blood Culture - Preliminary, Resulted No Growth after 48 hours. All Specime... 04/13/19 Respiratory Virus Panel (PCR) ([facility] [place]) - Final, Complete WAQAS ADAN MD Apr 16, 2019 06:46
[2019-04-16 18:42] LABS: CALCIUM LEVEL 8.5 MG/DL (8.8-10.2); CREATININE FOR GFR 2.04 MG/DL (0.70-1.30); GLOMERULAR FILTRATION RATE 34.3 (>42); POTASSIUM SERUM 4.4 MEQ/L (3.5-5.1)
[2019-04-16] MEDS: AZITHROMYCIN 250 MG TAB PO SCH (20:43)
[2019-04-17] MEDS: PIPERACILLIN/TAZOBACTAM SOD 3.375 GM in D5W MINI-BAG PLUS 50 ML IV SCH ×2 (00:36→05:27)
[2019-04-17] MEDS: methylPREDNISolone INJ 40 MG/1 ML VIAL (J2920) IV SCH ×3 (00:36→21:04)
[2019-04-17] MEDS: METOPROLOL TART 12.5 MG PER 1/2 TAB PO SCH ×5 (00:37→23:06)
[2019-04-17 04:00] VITALS: BP 142/87
[2019-04-17 05:12] LABS: BASO % 0.1 % (0.0-1.0); EOS % 0.1 % (0.0-3.0); HEMATOCRIT 38.7 % (42.0-52.0); HEMOGLOBIN 13.3 g/dl (13.5-17.5); LYMPH # 0.5 10^3/uL (1.5-5.0); LYMPH % 2.7 % (24.0-44.0); MEAN CORPUSCULAR HEMOGLOBIN 30.5 pg (27.0-33.0); MEAN CORPUSCULAR HGB CONC 34.4 g/dl (32.0-36.5); MEAN CORPUSCULAR VOLUME 88.8 fl (80.0-96.0); MONO # 0.5 10^3/uL (0.0-0.8); NEUTROPHILS # 16.1 10^3/uL (1.5-8.5); NEUTROPHILS % 93.1 % (36.0-66.0); PLATELET COUNT, AUTOMATED 147 10^3/uL (150-450); RED BLOOD COUNT 4.36 10^6/uL (4.30-6.10); WHITE BLOOD COUNT 17.3 10^3/uL (4.0-10.0)
[2019-04-17] MEDS: HEPARIN SOD (PORCINE) 5000 UNITS/ML VIAL (J1644 PER 1000UNITS) SC SCH (05:28)
[2019-04-17 05:41] LABS: ALBUMIN 2.6 GM/DL (3.2-5.2); BILIRUBIN,TOTAL 2.4 MG/DL (0.2-1.0); CALCIUM LEVEL 8.2 MG/DL (8.8-10.2); CREATININE FOR GFR 2.03 MG/DL (0.70-1.30); GLOMERULAR FILTRATION RATE 34.5 (>42); MAGNESIUM LEVEL 2.4 MG/DL (1.8-2.4); POTASSIUM SERUM 4.7 MEQ/L (3.5-5.1); TOTAL PROTEIN 5.8 GM/DL (6.4-8.2)
[2019-04-17] MEDS: LEVALBUTEROL 1.25 MG/0.5 ML CONCENTRATE NEB INH SCH ×3 (07:03→23:02)
[2019-04-17 08:00] VITALS: BP 119/87
[2019-04-17] MEDS ORDERED: DIGOXIN INJ 0.5 MG/2 ML AMP (J1160) IV ONE (08:15)
[2019-04-17] MEDS: APIXABAN 5 MG TAB (ELIQUIS) PO SCH ×2 (08:48→21:05)
[2019-04-17] MEDS: SENOKOT S TAB PO SCH ×2 (08:48→21:00)
[2019-04-17] MEDS: NICOTINE 21MG/24HR 1 EA TRANSDERMAL TD SCH (08:49)
[2019-04-17] MEDS ORDERED: SLF 3 ML SYR IV PRN (10:30)
[2019-04-17] MEDS ORDERED: ELIQ5TAB PO (11:34)
--- NOTE | 2019-04-17 11:35 | IPNPDOC ---
Subjective Date Seen The patient was seen on 04/17/19. Subjective Chief Complaint/HPI Patient does not have any complaints, feeling better, no palpitations. Remains in AFib with rate 110 to 130s Objective Physical Examination General Exam: Positive: Alert, Cooperative, No Acute Distress Eye Exam: Positive: PERRLA, Conjunctiva & lids normal, EOMI; Negative: Sclera icteric ENT Exam: Positive: Atraumatic, Mucous membr. moist/pink, Pharynx Normal Neck Exam: Positive: JVD Chest Exam: Positive: Rales, Rhonchi, Wheezing Heart Exam: Positive: Tachycardic, Irregular Rhythm, Normal S1, Normal S2, Murmurs; Negative: Rubs Telemetry: Positive: Atrial fibrillation Abdomen Exam: Positive: Normal bowel sounds, Soft; Negative: Tenderness, Hepatospenomegaly Extremity Exam: Positive: Edema (improving); Negative: Clubbing, Cyanosis Neuro Exam: Positive: Normal Speech, Cranial Nerves 3-12 NL, Reflexes 2+ Assessment /Plan Assessment 73 year old male with h/o hay fever, allergies, asthma as a teenager which disappeared ad has been healthy and not seen a doctor for many years started experiencing shortness of breath around [place] and since that point has seen urgent care on March 24. At that point he was diagnosed with bronchitis and was given 10 days of cefotetan, prednisone and inhalers. had 2 other follow ups with no improvement so came to the ed. In the ED he was found to have acute CHF, COPD exacerbation and pneumonia/ pneumonitis CTA chest 04/14: 1. Mild centrilobular emphysema demonstrated in the mid and upper lung zones. 2. Nodular opacity anterior left upper lobe measures represent a semi-solid nodule containing significant solid component versus a focus of peripheral airway disease. 3. Small bilateral pleural effusions. 4. Coarse parenchymal infiltrates demonstrated in the right upper lobe, both lower lobes with small patchy foci demonstrated in the lingular lobe and right middle lobe. Findings may represent multifocal pneumonitis. 5. Anasarca. 6. There is diffuse mediastinal lymphadenopathy measuring up to 14 mm in the pretracheal retrocaval area, 14 mm in the as is as zygoesophageal recess, and 17 mm in the AP window. 7. There is fusiform dilatation of the ascending thoracic aorta which measures 3.8 cm. maximally. There is no saccular component. Lack of contrast in the aorta limits evaluation for dissection. Follow-up CT imaging after treatment is completed suggested. Afib with RVR new onset getting betablocker and eliquis. received amiodarone and digoxin consulted cardiology. Acute Exacerbation of Systolic CHF, possibly 2/2 acute exacerbation of COPD possibly 2/2 pneumonia (coverage for HCAP) EF of 10% to 20%. diastolic function could not be determined as patient in Afib. Significantly elevated BNP at 33,823 Will hold lasix as creatinine worsening. Valvular heart disease Moderate Mitral regurgitation, tricuspid regurgitation. COPD/ emphysima exacerbation has not been diagnosed with COPD but is a long time smoker. Also CT chest shows emphysema will continue with xopenex, steroids Pneumonia failed outpatient antibiotics. on zosyn Hyponatremia due to CHF with hypervolemia slowly improving. Acute kidney injury likely 2/2 cardiorenal syndrome with diuresis and intravascular volme depletion will hold lasix consult nephro Elevated AST / ALT - possibly 2/2 hepatic congestion 2/2 CHF hepatitis panel negative worse today. Elevated troponin possibly 2/2 demand ischemia (NSTEMI Type II) - 2/2 CHF Vs false elevation of troponins due to CHF. No signs or symptoms of acute ischemia. Hyperkalemia resolved DVT prophylaxis Heparin Plan/VTE VTE Prophylaxis Ordered?: Yes VS, I&O, 24H, Fishbone Vital Signs/I&O Vital Signs Date Time Temp Pulse Resp B/P (MAP) Pulse Ox O2 Delivery O2 Flow Rate FiO2 04/17/19 08:49 128 04/17/19 08:00 97.7 19 119/87 (98) 95 Room Air 04/14/19 01:45 2.0 I&O- Last 24 Hours up to 6 AM 04/17/19 06:00 Intake Total 386 ml Output Total 1500 ml Balance -1114 ml Laboratory Data 24H LABS Laboratory Tests 2 04/16/19 17:59: Anion Gap 10, Glomerular Filtration Rate 34.3L, Calcium Level 8.5L 04/17/19 04:58: Anion Gap 11, Glomerular Filtration Rate 34.5L, Calcium Level 8.2L, Immature Granulocyte % (Auto) 1.0, Neutrophils (%) (Auto) 93.1H, Lymphocytes (%) (Auto) 2.7L, Monocytes (%) (Auto) 3.0, Eosinophils (%) (Auto) 0.1, Basophils (%) (Auto) 0.1, Neutrophils # (Auto) 16.1H, Lymphocytes # (Auto) 0.5L, Monocytes # (Auto) 0.5, Eosinophils # (Auto) 0.0, Basophils # (Auto) 0.0, Nucleated Red Blood Cells % (auto) 0.9H, Magnesium Level 2.4, Total Bilirubin 2.4H, Aspartate Amino Transf (AST/SGOT) 272H, Alanine Aminotransferase (ALT/SGPT) 848H, Alkaline Phosphatase 200H, Total Protein 5.8L, Albumin 2.6L, Albumin/Globulin Ratio 0.81L CBC/BMP Laboratory Tests 04/16/19 17:59 04/17/19 04:58 Microbiology Microbiology 04/14/19 Gram Stain - Final, Complete 04/14/19 Sputum Culture - Final, Complete 04/14/19 Blood Culture - Preliminary, Resulted No Growth after 72 hours. All specime... 04/14/19 Blood Culture - Preliminary, Resulted No Growth after 72 hours. All specime... 04/13/19 Respiratory Virus Panel (PCR) ([facility]) - Final, Complete WAQAS ADAN MD Apr 17, 2019 11:35
[2019-04-17 12:00] VITALS: BP 124/88
[2019-04-17] MEDS ORDERED: FUROSEMIDE 40 MG/4 ML VIAL (J1940) IV ONE (12:30)
[2019-04-17] MEDS: CEFDINIR 300 MG CAP (OMNICEF) PO SCH ×2 (12:48→21:05)
[2019-04-17] MEDS: SLF 3 ML SYR IV SCH ×2 (14:35→21:37)
[2019-04-17] MEDS: FUROSEMIDE injection 250 MG in D5W 225 ML IV SCH (14:37)
[2019-04-17 16:00] VITALS: BP 134/93
[2019-04-17 20:00] VITALS: BP 138/89
--- NOTE | 2019-04-17 23:38 | CR ---
DATE OF CONSULTATION: 04/17/2019 REQUESTING PHYSICIAN: Dr. Ashley Valencia CONSULTING PHYSICIAN: Dr. Destini Carter REASON FOR CONSULTATION: Management of acute kidney injury in this patient along with systolic congestive heart failure. CHIEF COMPLAINT: The patient presented to the hospital on April 13, 2019 with shortness of breath. HISTORY OF PRESENT ILLNESS: Mr. Henok Brown is a 73-year-old male who has not seen a physician in many years. He does not know of any past medical history. He presented to the hospital on April 13, 2019 with progressive shortness of breath. Before that, he had gone to the urgent care center about two to three times with progressive shortness of breath. He was given steroids and antibiotics that did not relieve his cough and shortness of breath. Finally, when the patient was admitted under the hospitalist service, he was diagnosed with fluid overload and congestive heart failure. He was started on intravenous (IV) diuretics. The patient's creatinine on admission was 1.3. He was also hyponatremic with a sodium of 117 on arrival. The patient was getting diuresis; however from April 15, 2019 onwards, his renal function started getting worse. His creatinine has bumped up to 2 today. Nephrology service was called for further help in the management at this patient with congestive heart failure and volume status acute renal failure is complicating his care. I saw and evaluated the patient today morning at the bedside. The patient's was also present at the bedside. He was able to talk to me and provide the history. PAST MEDICAL HISTORY: No significant known past medical history because he does not see a provider. PAST SURGICAL HISTORY: No significant past surgical history. ALLERGIES: No known drug allergies. FAMILY HISTORY: The patient is adopted, and he does not know any family history. SOCIAL HISTORY: He is an active smoker. He has a more than 50 pack-year history of smoking. He denies any illicit drug abuse or alcohol abuse. He lives with his . REVIEW OF SYSTEMS: Constitutional: Patient reports feeling weak and tired. Eyes: He denies any blurry vision, double vision. Ear, Nose and Throat (ENT): He denies any dysphagia, odynophagia. Cardiovascular: He does report orthopnea and dyspnea on mild exertion. Respiratory: He does report cough with some yellowish sputum. Gastrointestinal (GI): He denies any nausea, vomiting. Genitourinary: He denies any dysuria, hematuria. Musculoskeletal: He denies any muscle aches and pains. Skin: He denies any rashes or ulcers. Endocrine: He denies any history of hyperthyroidism, hypothyroidism. Psychiatric: He denies any depression or anxiety. All other review of systems is negative. PHYSICAL EXAMINATION: General: The patient is awake, alert, oriented times three, laying in bed. Vital signs: Temperature is 97.8 degrees Fahrenheit, blood pressure is 124/88, pulse is 126, respiratory rate of 17, saturating 99% on room air. Head and neck exam: Extraocular muscles intact. Pupils equally round and reactive to light. Jugular venous distention (JVD) is significantly elevated. He even has engorged neck veins. Cardiovascular: S1, S2, tachycardia, irregularly irregular heart rate. He has 2+ edema of the bilateral lower extremities even up to thighs, and he has presacral edema as well. Respiratory: Decreased breath sounds at the bases bilaterally with inspiratory crackles bilaterally up to the mid lung zones. Abdomen: Soft, positive bowel sounds. He has abdominal wall edema and mild amount of ascites. Genitourinary: Bladder is not palpable. Musculoskeletal: The patient has edema of the bilateral lower extremities starting from toes all the way up to his thighs. NORMALIZER: No focal deficit. Power is 5/5 in all extremities. Psychiatric: Normal mood and affect. LAB REVIEW: CBC showed a WBC of 17.3, hemoglobin is 13.3, platelets are 147. BMP showed sodium 126, potassium 4.7, chloride 88, bicarbonate 27, BUN 64, creatinine is 2, calcium 8.2, magnesium is 2.4, total bilirubin 2.4, AST is 272, ALT 848, alkaline phosphatase is 200, total protein 5.8, albumin is 2.6. Microbiology: Blood cultures are negative so far, respiratory viral panel is negative. IMAGING: Liver ultrasound was done, which showed 1 cm echogenic lesion in the left hepatic lobe, possibly a hemangioma. The patient got CT angiogram of the chest done with IV contrast on April 13, 2019, which showed centrilobular emphysema. There was anasarca. Echocardiogram done on April 15, 2019 showed that the patient has severe global left ventricular systolic dysfunction with diffuse hypokinesis and enlarged left ventricle. There was underlying atrial fibrillation, aortic valve sclerosis, mild aortic regurgitation, moderate tricuspid regurgitation. Trace pericardial effusion. Elevated central venous pressures and enlarged inferior vena cava. Left ventricular ejection fraction was hardly 10-20%. CURRENT INPATIENT MEDICATIONS: The patient was getting Zosyn 3.375 grams IV every 6 hours, which was stopped. He is getting DuoNeb nebulizations. He is on Eliquis 5 mg by mouth twice a day. He was on azithromycin, which was stopped today morning. He has been started on cefdinir at 300 mg by mouth twice a day. He was given digoxin two days in a row. The patient was also given amiodarone two days in a row on admission. His heparin subcu has been stopped. The patient is getting Solu-Medrol 40 mg IV every 12 hours. He has been started on metoprolol 12.5 mg by mouth four times a day. He has a nicotine patch. ASSESSMENT: 73-year-old male who does not follow up with any physician, admitted at this time with acute decompensated systolic congestive heart failure, fluid overload, severe hypervolemic hyponatremia, now he has developed acute kidney injury. PLAN: 1. Acute kidney injury. Patient's baseline creatinine was 1.02. Acute kidney injury is most likely secondary to use of IV contrast on April 13, 2019 with the use of diuretics for congestive heart failure and decompensated systolic heart failure has made it worse. At this time, acute kidney injury is multifactorial, but I think his creatinine would plateau and would start getting better, which is the usual with MARY BETH acute kidney injury. I would not hold the diuretics on this patient because of severely decompensated congestive heart failure. I would still diurese the patient for systolic congestive heart failure. 2. Acute decompensated systolic congestive heart failure. The patient hardly has a systolic function of 10-20%. I would not hold the diuretics, and I have given the patient Lasix 40 mg IV times one dose, and I have started the patient on a Lasix drip at 0.1 mg per kg per hour. Continue to monitor intake and output. 3. Hyponatremia. The patient has hypervolemic hyponatremia. Sodium level has been persistently getting better with the use of diuretics. 4. Congestive hepatopathy. The patient has elevated liver enzymes. I am hopeful that with improvement in the volume status of this patient, liver enzymes will get better. Liver ultrasound only showed a small hemangioma in the left lobe. 5. Bilateral pneumonitis. Most likely the patient has pulmonary edema. However, he is being empirically covered with IV antibiotics by the primary team. 6. Atrial fibrillation with rapid ventricular rate. It is secondary to fluid overload, decompensated CHF and nebulizations might be contributing as well. The patient is in hypersympathetic state. He has already been given digoxin and amiodarone which have not helped. He has been started on metoprolol 12.5 mg by mouth four times a day by cardiology. Heart rate is getting better. Thank you for involving me in the care of this patient. I shall be happy to follow the patient along with you tomorrow morning. NOAH
[2019-04-18] VITALS (7 sets, daily range): BP systolic 109–150; BP diastolic 58–89
[2019-04-18] MEDS: RAMELTEON 8 MG TAB (ROZEREM) PO SCH ×2 (01:43→20:25)
[2019-04-18 06:00] LABS: BASO % 0.1 % (0.0-1.0); HEMATOCRIT 39.7 % (42.0-52.0); HEMOGLOBIN 12.9 g/dl (13.5-17.5); LYMPH # 0.4 10^3/uL (1.5-5.0); LYMPH % 2.3 % (24.0-44.0); MEAN CORPUSCULAR HEMOGLOBIN 29.5 pg (27.0-33.0); MEAN CORPUSCULAR HGB CONC 32.5 g/dl (32.0-36.5); MEAN CORPUSCULAR VOLUME 90.8 fl (80.0-96.0); MONO # 0.6 10^3/uL (0.0-0.8); MONO % 3.6 % (0.0-5.0); NEUTROPHILS # 14.7 10^3/uL (1.5-8.5); PLATELET COUNT, AUTOMATED 130 10^3/uL (150-450); RED BLOOD COUNT 4.37 10^6/uL (4.30-6.10); WHITE BLOOD COUNT 15.8 10^3/uL (4.0-10.0)
[2019-04-18] MEDS: SLF 3 ML SYR IV SCH ×3 (06:00→22:00)
[2019-04-18 06:22] LABS: ALBUMIN 2.6 GM/DL (3.2-5.2); BILIRUBIN,TOTAL 2.7 MG/DL (0.2-1.0); CREATININE FOR GFR 2.09 MG/DL (0.70-1.30); GLOMERULAR FILTRATION RATE 33.4 (>42); MAGNESIUM LEVEL 2.2 MG/DL (1.8-2.4); POTASSIUM SERUM 4.3 MEQ/L (3.5-5.1); TOTAL PROTEIN 5.8 GM/DL (6.4-8.2)
[2019-04-18] MEDS: METOPROLOL TART 25 MG TABLET PO SCH ×3 (06:32→17:21)
--- NOTE | 2019-04-18 07:52 | IPN ---
DATE: 04/17/2019 Mr. Henok Brown was seen earlier this morning and this evening, he was supine in bed in no acute distress and this evening, family were at bedside. He was supine in bed in no acute distress. He has not had any chest pain and he denies any palpitations. There is no orthopnea or paroxysmal nocturnal dyspnea (PND). His pedal edema has improved. It seems that he was feeling better today. Later during the day in the afternoon and he was started on IV furosemide by nephrology director [employer]. Early this morning, when I saw him, I started him on apixaban/Eliquis and he was given one dose of IV digoxin. He continues to be on small dose of short-acting beta marion with metoprolol tartrate. There is no report of fever or chills. There is no report of bleeding. According to the nurse, he is heart rate has improved and most of the time now is about 110 beats per minute. Mr. Henok Brown was initially seen on 04/15/2019 for atrial fibrillation with a rapid ventricular rate. He was initially admitted on 04/14/2019 with heart failure, newly diagnosed. Prior to this hospitalization, he was not seeing any doctor and has not been taking any medications, has not been sick. Upon talking to him this evening, it seemed that he was told years ago that he has atrial fibrillation. He does smoke regularly until very recently. He did deny any EtOH abuse. PHYSICAL EXAMINATION This evening, the patient is alert and awake, in no acute distress and his vital signs when I saw him revealed a blood pressure of 138/89 with a pulse reported to be 85 but while I was at bedside, his pulse varies between 90 and 120 beats per minute, respiration 18 and his maximum temperature is 97.8 degrees Fahrenheit with an oxygen saturation of 96% on room air. He had a negative fluid balance of 814 mL for 04/16/2019. His weight today was 71.3 and same as yesterday on 04/16/2019. Examination of the head: Atraumatic. Neck is supple with extended jugular. No carotid bruits. Lungs: Revealed minimal crackles at the bases, also minimal scattered wheezing bilaterally. Heart examination revealed an irregular heart sound without gallops. The point of maximal impulse (PMI) is slightly displaced inferiorly and laterally. There is no rub. There is a systolic murmur grade 2/6 at the lower left sternal border and at the apex without any radiation. Abdomen is unremarkable. Extremities reveal +1 bilateral lower leg and ankle/pedal edema. Neurological examination is negative for focal deficit. LABORATORY DATA CBC done today revealed a WBC of 17.3, hemoglobin 13.3, hematocrit 38.7 and platelet 147,000. BMP revealed a sodium of 126, potassium 4.7 and chloride 88, CO2 27, BUN 64, creatinine 2.03, GFR 34.5. Fasting glucose 133 and calcium 8.2. Serum magnesium was 2.4. Liver enzymes revealed a total bilirubin of 2.4. AST 272, ALT 842. Alkaline phosphatase is 200, total bilirubin 5.8, albumin 2.6. Serum troponin was 0.11, 0.12, and 0.16. Serum pro-BMP on admission was 33,823. PT on admission was 18.0 with an INR of 1.52. IMPRESSION 1. Atrial fibrillation, newly diagnosed and heart rate now is under better control. When I initially saw him a couple days ago, his heart rate was about 100 - 150 beats per minute. Currently, his heart rate varies between 80 and 120 beats per minute. His blood pressure seems to be stable, I plan to increase the beta marion, it will be doubled up. Digoxin can be given as needed. He is now on Eliquis for prevention of thromboembolic events. We must monitor his liver enzymes because if he deteriorates, we may have to change the Eliquis. 2. Decompensated congestive heart failure: Newly diagnosed and acute. Left ventricular ejection fraction (LVEF) reported to be 10-20% by echocardiogram on admission. He is currently on beta-marion and digoxin. We have not been able to give him any FINA inhibitor or ARB, or Entresto in view of the recent deterioration in his kidney function. If his kidney functions start again improving, he will be started on one of them and he also might benefit from spirolactone if his blood pressure remained stable. He is well aware that he will need a LifeVest when he is ready to be discharged home. The plan once again was discussed with the patient as well as his and his daughter present in the room. Dr. Billingsley will see him over the weekend and on Saturday, Dr. Medrano will see him. 3. COPD on the chest CT. 4. Acute kidney injury. He was seen earlier today by nephrology who started him on IV drip furosemide. We must monitor closely his BUN, creatinine and serum potassium. At one point, we need to start him on FINA inhibitor or ARB, or Entresto. DAWND
[2019-04-18] MEDS: LEVALBUTEROL 1.25 MG/0.5 ML CONCENTRATE NEB INH SCH ×2 (08:02→14:44)
[2019-04-18] MEDS: SENOKOT S TAB PO SCH ×2 (08:43→20:26)
[2019-04-18] MEDS ORDERED: FLUBLOK(EGG FREE)(QUAD)INFLUENZA VACC 0.5ML SYRINGE (90682)18YRS&OLDER IM ONE (09:00)
[2019-04-18] MEDS ORDERED: PREVNAR 13 VACCINE SYRINGE (CPT CODE:90670) IM ONE (09:00)
[2019-04-18] MEDS: methylPREDNISolone INJ 40 MG/1 ML VIAL (J2920) IV SCH (09:23)
[2019-04-18] MEDS: NICOTINE 21MG/24HR 1 EA TRANSDERMAL TD SCH (09:25)
[2019-04-18] MEDS: CEFDINIR 300 MG CAP (OMNICEF) PO SCH ×2 (09:25→20:29)
[2019-04-18] MEDS: APIXABAN 5 MG TAB (ELIQUIS) PO SCH ×2 (09:25→20:26)
[2019-04-18] MEDS ORDERED: DIGOXIN INJ 0.5 MG/2 ML AMP (J1160) IV ONE (09:30)
--- NOTE | 2019-04-18 10:28 | IPNPDOC ---
Subjective Date Seen The patient was seen on 04/18/19. Subjective Chief Complaint/HPI Pateitn having delirium from yesterday, as per has been seeing things not in room, talking to people not in the room and has been talking about things and issues in way past. Last night he called his and told her that "he dropped off the car at the general store and now he did not know where to go." This morning he does not have any appetite, sitting by the side of the bed denies any SOB, says feels fine and why cant he go home. Knows that he is in hospital and did recognize me as [facility] doctor. Objective Physical Examination General Exam: Positive: Alert, Cooperative, No Acute Distress, Other (intermittently confused. ) Eye Exam: Positive: PERRLA, Conjunctiva & lids normal, EOMI ENT Exam: Positive: Atraumatic, Mucous membr. moist/pink, Pharynx Normal Neck Exam: Positive: JVD Chest Exam: Positive: Rales, Rhonchi, Wheezing Heart Exam: Positive: Tachycardic, Irregular Rhythm, Normal S1, Normal S2, Murmurs Telemetry: Positive: Atrial fibrillation Abdomen Exam: Positive: Normal bowel sounds, Soft Extremity Exam: Positive: Edema Neuro Exam: Positive: Normal Speech, Cranial Nerves 3-12 NL, Reflexes 2+ Assessment /Plan Assessment 73 year old male with h/o hay fever, allergies, asthma as a teenager which disappeared ad has been healthy and not seen a doctor for many years started experiencing shortness of breath around [place] and since that point has seen urgent care on March 24. At that point he was diagnosed with bronchitis and was given 10 days of cefotetan, prednisone and inhalers. had 2 other follow ups with no improvement so came to the ed. In the ED he was found to have acute CHF, COPD exacerbation and pneumonia/ pneumonitis Acute metabolic toxic encephalopathy probably due to steroids, being in the hospital and general sickness Has a sitter, has been getting frequently reoriented steroid dose reduced. will start haldol 1 mg bid. Afib with RVR new onset, still uncontrolled getting betablocker and eliquis and digoxin Dr Manning following Acute Exacerbation of Systolic CHF, possibly 2/2 acute exacerbation of COPD possibly 2/2 pneumonia (coverage for HCAP) EF of 10% to 20%. diastolic function could not be determined as patient in Afib. With Valvular heart disease Moderate Mitral regurgitation, tricuspid regurgitation. Significantly elevated BNP at 33,823 Will hold lasix as creatinine worsening. Acute kidney injury Contrast nephropathy , cardiorenal syndrome with some aggressive diuresis and in travascular volume depletion diuresis is continued nephro following. COPD/ emphysima exacerbation has not been diagnosed with COPD but is a long time smoker. Also CT chest shows emphysema will continue with xopenex, steroids change to prdnisone from tomorrow. Pneumonia/ penumonias failed outpatient antibiotics. Was on zosyn now on cefdinir. Hyponatremia due to CHF with hypervolemia slowly improving. Transaminitis- Hepatic congestion 2/2 CHF hepatitis panel negative no improvement yet. continue diuresis as per nephro. Elevated troponin possibly 2/2 demand ischemia (NSTEMI Type II) - 2/2 CHF Vs false elevation of troponins due to CHF. No signs or symptoms of acute ischemia. Hyperkalemia resolved DVT prophylaxis Heparin Plan/VTE VTE Prophylaxis Ordered?: Yes VS, I&O, 24H, [facility] Vital Signs/I&O Vital Signs Date Time Temp Pulse Resp B/P (MAP) Pulse Ox O2 Delivery O2 Flow Rate FiO2 04/18/19 09:26 130 04/18/19 07:43 96.7 20 131/79 (96) 90 Room Air 04/14/19 01:45 2.0 I&O- Last 24 Hours up to 6 AM 04/18/19 05:59 Intake Total 650 ml Output Total 1675 ml Balance -1025 ml Laboratory Data 24H LABS Laboratory Tests 2 04/18/19 05:30: Immature Granulocyte % (Auto) 1.0, Neutrophils (%) (Auto) 93.0H, Lymphocytes (%) (Auto) 2.3L, Monocytes (%) (Auto) 3.6, Eosinophils (%) (Auto) 0.0, Basophils (%) (Auto) 0.1, Neutrophils # (Auto) 14.7H, Lymphocytes # (Auto) 0.4L, Monocytes # (Auto) 0.6, Eosinophils # (Auto) 0.0, Basophils # (Auto) 0.0, Nucleated Red Blood Cells % (auto) 1.7H, Anion Gap 12, Glomerular Filtration Rate 33.4L, Calcium Level 8.0L, Magnesium Level 2.2, Total Bilirubin 2.7H, Aspartate Amino Transf (AST/SGOT) 260H, Alanine Aminotransferase (ALT/SGPT) 883H, Alkaline Phosphatase 219H, Total Protein 5.8L, Albumin 2.6L, Albumin/Globulin Ratio 0.81L CBC/BMP Laboratory Tests 04/18/19 05:30 Microbiology Microbiology 04/14/19 Gram Stain - Final, Complete 04/14/19 Sputum Culture - Final, Complete 04/14/19 Blood Culture - Preliminary, Resulted No Growth after 72 hours. All specime... 04/14/19 Blood Culture - Preliminary, Resulted No Growth after 72 hours. All specime... 04/13/19 Respiratory Virus Panel (PCR) ([facility]INO) - Final, Complete WAQAS ADAN MD Apr 18, 2019 10:28
[2019-04-18] MEDS: haloperidoL 1 MG TAB PO SCH ×2 (11:08→20:29)
[2019-04-18] MEDS: ISOSORBIDE DIN (ISORDIL) 10 MG TAB PO SCH ×2 (12:40→17:20)
[2019-04-18] MEDS: **hydrALAZINE** 10 MG TAB PO SCH ×2 (12:40→17:20)
--- NOTE | 2019-04-18 12:53 | ECHO ---
CARDIOLOGY PROGRESS NOTE DATE OF PROCEDURE: 04/18/2019 SUBJECTIVE: According to his who is at bedside, she claims he has not had a good morning. She finds him somewhat agitated and irritable. She denies any recent alcohol problem. Admits that he does smoke heavily and thinks this may be a withdrawal from his nicotine. I have informed her that he is receiving nicotine replacement therapy. He has been given Haldol with some improvement. Denies any shortness of breath, chest discomfort any awareness of his heart action or dizziness at this time. OBJECTIVE: Slim elderly male lying flat in his bed without dyspnea. Does appear to have a slight degree of asterixis. Somewhat lethargic but easily aroused. Appears to be orientated and response to questions. Heart rate 100 bpm and irregular (rate slower than 140 earlier today following the administration metoprolol 25 mg by mouth and digoxin 0.25 mg IV). Blood pressure 136/72 supine, 132/68 sitting with legs dependent. Respiratory rate 18 per minute, O2 saturation 90% on room air. Afebrile. Normal oral moisture with no central cyanosis. Trachea midline. Neck veins remain significantly elevated at least a 6-8 cm above the sternal angle. Slightly increased anteroposterior chest diameter with reduced chest excursion. Few scattered bibasilar inspiratory rales. Obvious prolongation of expiration but no audible wheeze at this time with his combination bronchodilator therapy. Apical impulse not palpable. Heart sounds were somewhat distant and variable. No audible murmur. Soft abdomen with increased liver span of 10 cm in the right midclavicular line. Marked lower lumbar and sacral pitting edema with pitting edema of both lower legs as well. MANAGER STATISTICAL PROGRAMMING: Underlying atrial fibrillation with somewhat rapid ventricular sponsor earlier today. Occasional to frequent preventricular contractions (PVCs). LABORATORY DATA: Hemoglobin 12.9, white blood cell count is down from 17 to 15.8 today. Platelet count is also soft at 130,000. Electrolytes - continues to have a mild degree of hyponatremia which is improving gradually since his admission. Other electrolytes were in balance. Unfortunately, his BUN continues to climb for admission level of 43 to 80 this morning. Creatinine measuring 1.3 on admission is up to 2.1 today. Fasting glucose 166, magnesium level was 2.2. Serum calcium slightly low at 8.0, but serial albumin was also low at 2.6. IMPRESSION/PLAN: 1. Paroxysmal atrial fibrillation: There was no EKG available on the chart documenting this problem. Current rate would be considered adequately controlled with combination digoxin and metoprolol tartrate. He is on Eliquis oral anticoagulation without lateralizing neurological deficits or other evidence to suggest embolic phenomenon and no bleeding problems. 2. Heart failure (systolic and diastolic/chronic): He is responding to diuretic therapy. Was restarted on continuous IV Lasix infusion by nephrology yesterday. Despite his obvious congested state, azotemia is gradually worsening. Our hope was that with controlling his rapid ventricular response atrial fibrillation, his cardiac output with improved. Recent echocardiogram did show significant global left ventricular hypokinesis. Today I have started him on low-dose isosorbide dinitrate and hydralazine. Diuretic therapy as directed by nephrology. 3. Abnormal EKG: Tracing today shows underlying atrial fibrillation with ventricular response of approximately 104 beats per minute. Isolated PVC. Low limb voltage with slow precordial R-wave progression and persistent S wave V5-V6 in keeping with his body habitus and long-term smoking history. No evidence of prior infarction. Precordial voltage does not appear to be slightly prominent with incomplete left bundle branch block (LBBB) and strain pattern suggestive of left ventricular hypertrophy (LVH). The patient himself admits to having been told he had hypertension in the past but stopped his medications years ago and has not been following with a physician. Fortunately, no past history of chest pain. Serial EKGs have not shown worsening repolarization abnormalities and admission serial Troponin I levels were all indeterminate attributed to his chronic renal insufficiency. 4. Hypertensive heart disease (benign with heart failure): Based on his chest CT showing a normal left ventricular cavity size and at least mild degree of left ventricle hypertrophy with mildly dilated left atrium, I suspect he has had hypertension that has been neglected. This likely accounts for his predisposition to renal insufficiency as well. His current blood pressure is not significantly elevated with his diuretic therapy and beta marion but I have introduced low-dose isosorbide dinitrate and hydralazine to improve left ventricular systolic performance. Hopefully, this will improve renal perfusion and renal function. 5. Right heart failure/cor pulmonale: His chest CT scan documents a significantly dilated pulmonary trunk of 3.5 cm, right ventricle of 4.6 cm and more markedly dilated right atrium. Right heart chamber is significantly larger than his left. Uncertain of the basis beyond his long-term smoking history. Chest x-ray does show significant emphysematous changes. O2 saturation upon presentation to the emergency room was 87 but was also in pulmonary congestion. His bicarbonate level is not elevated to suggest hypercapnic respiratory failure. His present mental status cannot be attributed to hypoxemia with serial normal O2 saturations. Currently remains on controlled supplemental oxygen and bronchodilator therapies. Has also been receiving oral antibiotic therapy. IV Solu-Medrol was discontinued this morning. I will continue to follow him until Dr. Manning returns on Saturday.
[2019-04-18] MEDS: FUROSEMIDE injection 250 MG in D5W 225 ML IV SCH ×2 (14:59→15:00)
[2019-04-18] MEDS ORDERED: metOLazone 2.5 MG TAB PO ONE (19:30)
[2019-04-18] MEDS ORDERED: POTASSIUM CHLORIDE 10 MEQ SR TABLET PO ONE (19:45)
[2019-04-19] VITALS: BP 109/55
[2019-04-19] MEDS: LEVALBUTEROL 1.25 MG/0.5 ML CONCENTRATE NEB INH SCH ×3 (02:26→14:26)
[2019-04-19 04:00] VITALS: BP 137/63
[2019-04-19 05:24] LABS: HEMOGLOBIN 11.5 g/dl (13.5-17.5); LYMPH # 0.3 10^3/uL (1.5-5.0); LYMPH % 2.3 % (24.0-44.0); MEAN CORPUSCULAR HEMOGLOBIN 29.9 pg (27.0-33.0); MEAN CORPUSCULAR HGB CONC 32.9 g/dl (32.0-36.5); MEAN CORPUSCULAR VOLUME 90.9 fl (80.0-96.0); MONO # 0.6 10^3/uL (0.0-0.8); MONO % 4.5 % (0.0-5.0); NEUTROPHILS # 12.4 10^3/uL (1.5-8.5); NEUTROPHILS % 92.2 % (36.0-66.0); PLATELET COUNT, AUTOMATED 114 10^3/uL (150-450); RED BLOOD COUNT 3.85 10^6/uL (4.30-6.10); WHITE BLOOD COUNT 13.4 10^3/uL (4.0-10.0)
[2019-04-19 05:55] LABS: ALBUMIN 2.5 GM/DL (3.2-5.2); BILIRUBIN,TOTAL 1.7 MG/DL (0.2-1.0); CALCIUM LEVEL 8.3 MG/DL (8.8-10.2); CREATININE FOR GFR 1.81 MG/DL (0.70-1.30); GLOMERULAR FILTRATION RATE 39.4 (>42); MAGNESIUM LEVEL 2.1 MG/DL (1.8-2.4); POTASSIUM SERUM 3.4 MEQ/L (3.5-5.1); TOTAL PROTEIN 5.1 GM/DL (6.4-8.2)
[2019-04-19] MEDS: SLF 3 ML SYR IV SCH ×3 (06:00→20:47)
[2019-04-19] MEDS: METOPROLOL TART 25 MG TABLET PO SCH ×4 (06:40→17:35)
[2019-04-19 07:07] VITALS: BP 127/58
--- NOTE | 2019-04-19 07:10 | CR ---
URGENT CARDIOLOGY CONSULTATION: DATE OF CONSULTATION: 04/18/2019 REFERRING PHYSICIAN: Dr. Yang Denis INDICATION: Left arm weakness with serial EKG change and indeterminate troponin I levels. HISTORY: This 66-year-old single, retired resident of [place], [place] underwent a percutaneous lung biopsy of lung mass yesterday complicated by the Dictation ended
[2019-04-19] MEDS: **hydrALAZINE** 10 MG TAB PO SCH ×3 (07:27→17:36)
[2019-04-19] MEDS: ISOSORBIDE DIN (ISORDIL) 10 MG TAB PO SCH ×3 (07:27→17:34)
[2019-04-19] MEDS: NICOTINE 21MG/24HR 1 EA TRANSDERMAL TD SCH (08:09)
[2019-04-19] MEDS: SENOKOT S TAB PO SCH ×2 (08:10→20:33)
[2019-04-19] MEDS: CEFDINIR 300 MG CAP (OMNICEF) PO SCH ×2 (08:10→20:33)
[2019-04-19] MEDS: APIXABAN 5 MG TAB (ELIQUIS) PO SCH ×2 (08:10→20:33)
[2019-04-19] MEDS: haloperidoL 1 MG TAB PO SCH ×2 (08:10→20:33)
[2019-04-19] MEDS ORDERED: POTASSIUM CHLORIDE 10 MEQ SR TABLET PO ONE (08:30)
[2019-04-19] MEDS ORDERED: predniSONE 20 MG TAB PO SCH (09:00)
--- NOTE | 2019-04-19 09:47 | REP ---
PA LATERAL CHEST: 04/19/2019. Comparison: CT angio chest 04/13/2019. Clinical history: Pneumonia. Findings: Two views are provided. There are bilateral effusions as on the previous chest. There are patchy airspace opacities in the right mid and lower lung zone corresponding to the patchy pneumonitis and infiltrate seen on the CT. I do not see change in cardiomegaly with left ventricular and atrial enlargement. There is no vascular redistribution or edema. The aorta is calcified at the arch, but unchanged. There is pulmonary artery hypertension and hyperinflation with COPD and underlying fibrosis. Impression: 1. Patchy infiltrates scattered in the right mid and lower lung zone as on previous CT and bilateral pleural effusions with compressive atelectasis or infiltrates in the bases. These appear grossly unchanged. 2. Cardiomegaly with left atrial and ventricular enlargement but no pulmonary edema or change in cardiac size. 3. Calcified aortic arch without aneurysm. Airway midline. Electronically Signed by Juan Grimaldo MD 04/19/2019 08:18 P
[2019-04-19] MEDS: POTASSIUM CHLORIDE 10 MEQ SR TABLET PO ONE ×2 (10:53→12:29)
--- NOTE | 2019-04-19 11:03 | ECGEPIP ---
[facility] Test Date: 2019-04-18 Pat Name: IGLESIA BARRERA Department: Room: [place] [address] Gender: Male Prime Minister: FÁTIMA : 1945 Requested By: Addison Billingsley Order Number: [id number] Reading MD: Anshu Radford Measurements Intervals Pablo Rate: 104 P: MA: 0 QRS: 16 QRSD: 132 T: -60 QT: 322 QTc: 425 Interpretive Statements Atrial fibrillation with moderate ventricular response PVC vs Rashel beat Low QRS complex voltage in the limb leads Left ventricular hypertrophy with repolarization abnormality Compared to prior tracing of 04/15/2019, ventricular response is slower Electronically Signed on 04-19-2019 11:03:13 EST by Anshu Radford
--- NOTE | 2019-04-19 11:34 | IPN ---
DATE OF SERVICE: 04/18/2019 SUBJECTIVE: Patient was seen and examined at the bedside today morning. His was also present at the bedside. Last 24-hour events were noted. Patient was also getting intravenous (IV) Solu-Medrol and because of that patient was hallucinating. He had to get Haldol today morning. He was also started on a Lasix drip yesterday. Renal function is stable, creatinine is almost the same as yesterday. He is responding well to the diuretics, and his reports that his lower extremity edema is getting better. OBJECTIVE: Vital Signs: Patient's temperature is 97.4 degrees Fahrenheit, blood pressure 117/74, pulse is 125, respiratory rate of 20, saturating 93% on room air. Intake and Output; urine output recorded is 1.9 liters yesterday. It is 875 mL so far today since overnight. Weight in the bed scale is 69.9 kg, which is almost 1 kg below his weight yesterday. PHYSICAL EXAM: General: Patient is awake, alert, oriented times two, laying in bed, no apparent distress. Head and Neck Exam: Extraocular muscles intact. Pupils equally round and reactive to light. Neck is supple. There is significantly elevated jugular venous distention (JVD) with engorged neck veins. Cardiovascular: S1, S2, irregularly irregular rate, and tachycardia. 2+ edema of the bilateral lower extremities up to thighs. Respiratory: Decreased breath sounds bilaterally at the bases up to mid lung zones with mild respiratory crackles at the bases. Abdomen: Soft. Positive bowel sounds. Abdominal wall edema in the flanks was noted. Musculoskeletal: 2+ edema of the bilateral lower extremities, and edema of the thighs and presacral edema was also noted. 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 LAB REVIEW: CBC showed WBC of 15.8, hemoglobin is 12.9, platelet count is 130. BMP showed sodium 127, potassium 4.3, chloride 88, bicarbonate 27, BUN 80, creatinine is 2.09, it was 2.03 yesterday, glucose 166, calcium is 8, magnesium 2.2, total bilirubin is 2.7, it was 2.4 yesterday, AST is 260, ALT is 883, alkaline phosphatase is 219, total protein 5.8, albumin is 2.6. MICROBIOLOGY: Cultures are negative so far. CURRENT INPATIENT MEDICATIONS: Patient's medications were all reviewed by me. He is on Lasix drip at 7 mg per hour. I have decreased the dose to 5 mg an hour now because of elevated BUN levels and metabolic encephalopathy. He was also started on Omnicef 300 mg by mouth twice a day yesterday. Patient was given another dose of IV digoxin 0.25 mg IV. He was given a dose of Haldol 1 mg by mouth twice a day. He has also been started on hydralazine 10 mg by mouth three times a day. IV Solu-Medrol has been stopped. Metoprolol dose has been changed to 25 mg by mouth every 6 hours. He has been started on prednisone 40 mg by mouth daily starting tomorrow morning. ASSESSMENT AND PLAN: 1. Acute kidney injury. Patient's baseline creatinine is 1.02. Acute kidney injury (TARI) is secondary to contrast induced nephropathy and cardiorenal syndrome. He was started on Lasix yesterday. Creatinine is stable. I have decreased the Lasix dose to 5 mg an hour. However, for sequential nephron blockade, I have added metolazone 2.5 mg by mouth times one dose today. 2. Acute decompensated systolic congestive heart failure. Patient's metoprolol has been increased. He has also been started on hydralazine by cardiology as mentioned above. I have changed the diuretics dose to 5 mg per hour of Lasix with a dose of metolazone that was given today in the evening. 3. Hyponatremia. Patient has hypervolemic hyponatremia. It should get better with aggressive diuresis. 4. Congestive hepatopathy. Continue the optimization of fluid status with treatment of congestive heart failure. 5. Bilateral pneumonitis. Patient is currently on oral Omnicef. White cell count is improving. 6. Atrial fibrillation with rapid ventricular rate. Patient is currently on metoprolol and dose is being increased by cardiology. He was also given a dose of digoxin today. 7. Metabolic encephalopathy. It is most likely secondary to use of IV steroids. His BUN level is also slightly high because of the steroid use. Steroid has been changed to oral prednisone now. Patient was given Haldol. He is clinically getting better.
[2019-04-19 12:00] VITALS: BP 133/64
[2019-04-19] MEDS: FUROSEMIDE injection 250 MG in D5W 225 ML IV SCH (15:17)
[2019-04-19 16:00] VITALS: BP 127/58
[2019-04-19 18:12] LABS: CALCIUM LEVEL 8.4 MG/DL (8.8-10.2); CREATININE FOR GFR 1.77 MG/DL (0.70-1.30); GLOMERULAR FILTRATION RATE 40.5 (>42); MAGNESIUM LEVEL 2.2 MG/DL (1.8-2.4); POTASSIUM SERUM 3.8 MEQ/L (3.5-5.1)
[2019-04-19 20:00] VITALS: BP 147/60
[2019-04-19] MEDS: RAMELTEON 8 MG TAB (ROZEREM) PO SCH (20:33)
--- NOTE | 2019-04-19 21:08 | IPNPDOC ---
Text Note Date of Service The patient was seen on 04/19/19. NOTE Subjective: No any acute events overnight, patient somnolent in the morning. Objective: General: Somnolent male HEENT: SEBLE, SARAHMI Lungs: CTA CV: S1-S2 Abdomen: Nontender, nondistended Extremities: No clubbing, no cyanosis Neuro: Nonfocal Assessment and plan: Patient 73 years old male with past history of allergy, asthma presented hospital with acute CHF exacerbation, superimposed with COPD exacerbation/pneumonia Acute metabolic encephalopathy Could be secondary to steroids Continue Haldol 1 mg twice a day I will discontinue steroids TARI Most likely secondary to cardiorenal syndrome Continue Lasix Neurologist team follows him Metolazone 2.5 added Acute systolic CHF Ejection fraction around 20% superimposed with mitral and tricuspid regurgitation Continue aggressive diuresis I's and O's COPD/ emphysima exacerbation I DC steroids due to metabolic encephalopathy Continue inhalers Pneumonia Patient completed the course of antibiotics There is concern for aspiration Speech specialist evaluation Congestive hepatopathy. Secondary to hepatorenal syndrome Hypervolemic hyponatremia Secondary to cardiorenal syndrome Continue diuresis VS,Fishbone, I+O VS, Fishbone, I+O Laboratory Tests 04/19/19 05:07 04/19/19 17:32 Vital Signs Date Time Temp Pulse Resp B/P (MAP) Pulse Ox O2 Delivery O2 Flow Rate FiO2 04/19/19 20:00 97.2 102 16 147/60 (89) 91 Room Air 04/14/19 01:45 2.0 I&O- Last 24 Hours up to 6 AM 04/19/19 05:59 Intake Total 752.6 ml Output Total 2450 ml Balance -1697.4 ml MOLLY CONRAD DO Apr 19, 2019 21:08
[2019-04-20] VITALS: BP 147/66
[2019-04-20] MEDS: METOPROLOL TART 25 MG TABLET PO SCH ×5 (00:07→23:28)
[2019-04-20] MEDS: LEVALBUTEROL 1.25 MG/0.5 ML CONCENTRATE NEB INH SCH ×3 (02:02→15:04)
[2019-04-20 04:00] VITALS: BP 122/63
[2019-04-20 05:56] LABS: BASO % 0.2 % (0.0-1.0); HEMATOCRIT 38.9 % (42.0-52.0); HEMOGLOBIN 12.7 g/dl (13.5-17.5); LYMPH # 0.6 10^3/uL (1.5-5.0); MEAN CORPUSCULAR HEMOGLOBIN 30.2 pg (27.0-33.0); MEAN CORPUSCULAR HGB CONC 32.6 g/dl (32.0-36.5); MEAN CORPUSCULAR VOLUME 92.4 fl (80.0-96.0); MONO # 0.9 10^3/uL (0.0-0.8); MONO % 4.8 % (0.0-5.0); NEUTROPHILS # 17.8 10^3/uL (1.5-8.5); NEUTROPHILS % 91.1 % (36.0-66.0); PLATELET COUNT, AUTOMATED 131 10^3/uL (150-450); RED BLOOD COUNT 4.21 10^6/uL (4.30-6.10); WHITE BLOOD COUNT 19.5 10^3/uL (4.0-10.0)
[2019-04-20] MEDS: ISOSORBIDE DIN (ISORDIL) 10 MG TAB PO SCH ×3 (06:04→17:39)
[2019-04-20] MEDS: SLF 3 ML SYR IV SCH ×3 (06:04→19:56)
[2019-04-20] MEDS: **hydrALAZINE** 10 MG TAB PO SCH ×3 (06:04→17:39)
[2019-04-20 06:11] LABS: ALBUMIN 2.8 GM/DL (3.2-5.2); BILIRUBIN,TOTAL 2.1 MG/DL (0.2-1.0); CALCIUM LEVEL 8.9 MG/DL (8.8-10.2); CREATININE FOR GFR 1.56 MG/DL (0.70-1.30); GLOMERULAR FILTRATION RATE 46.8 (>42); MAGNESIUM LEVEL 2.3 MG/DL (1.8-2.4); POTASSIUM SERUM 3.3 MEQ/L (3.5-5.1); TOTAL PROTEIN 5.7 GM/DL (6.4-8.2)
--- NOTE | 2019-04-20 07:05 | REP ---
RENAL ULTRASOUND COMPLETE: 04/19/2019. Clinical history: TARI. Findings: No prior study. Right kidney measures 10.4 x 5.8 x 5.1 cm. Cortical echogenicity is less than that of the adjacent liver and thickness intact vessels in the hilum and sinus are somewhat echogenic. There is no hydronephrosis or hydroureter. I see no solid mass, cyst or stone. No perinephric fluid. Left kidney is 9.25 x 4.8 x 4.8 cm. Its cortical echogenicity and thickness were intact. There are some echogenic vessels at the hilum. I do not see stone, hydronephrosis or hydroureter. No solid mass or perinephric fluid. Incidental note made of a left pleural effusion. The bladder measured 6 x 3.3 x 5.1 cm. No ureteral jets were imaged during the course of the examination. Impression: 1. Echogenic renal vessels bilaterally but no hydronephrosis, hydroureter, solid mass, cyst or perinephric fluid. 2. Renal size and cortical thickness generally preserved. Normal cortical echogenicity. No focal lesion. 3. The bladder only partially filled. No ureteral jets observed during the course of the examination. Incidental note of a left pleural effusion that has been noted on chest x-rays. Electronically Signed by Juan Grimaldo MD 04/20/2019 09:00 A
[2019-04-20 08:00] VITALS: BP 133/58
[2019-04-20] MEDS ORDERED: POTASSIUM CHLORIDE 10 MEQ SR TABLET PO ONE ×2 (08:00→16:00)
[2019-04-20] MEDS: BUDESONIDE 0.5 MG/2 ML INHALATION SUSPENSION INH SCH ×2 (08:00→20:38)
--- NOTE | 2019-04-20 08:37 | IPN ---
DATE: 04/20/2019 Mr. Brown had apparently a better night than the night before. He had episodes of agitation yesterday, but this morning is completely lucid. He denies any chest discomfort or sensation of palpitations. He believes that his shortness of breath is fairly minimal, but he has not done much of ambulation. Vital Signs: Blood pressure 137/58. Heart rate has been in 90s to low 100s. He is afebrile. Saturation is 91% on room air. His fluid balance yesterday was recorded negative 6 liters. Weight is 56.3 kg. Jugular venous pulse (JVP) is not high on my exam, even though possibly 2-3 cm above the clavicle, not much more than that. Lungs are relatively clear. I do not appreciate any diminished breath sounds. No wheezing. No crackles. Heart exam reveals irregular rhythm with murmur at the apex about 2-3/6 blowing. Abdomen is soft. I do not appreciate any hepatosplenomegaly. Extremities still have 2+ edema, especially below the knees. LABORATORIES: Sodium 134, potassium 3.3, BUN 82, creatinine 1.6 and glucose 130. CBC with WBC count 9.5, hemoglobin 12.7, hematocrit 38.9 and platelet count 131,000. ASSESSMENT/PLAN: Mr. Brown is a 73-year-old man who was admitted with dyspnea. 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 The patient denies that he had any significant alcohol intake. The management of fluid has been handled by nephrology because the patient also developed acute renal failure. The renal function markedly improved and he diuresed vigorously yesterday. 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 As far as the management of atrial fibrillation is concerned, he has been anticoagulated with Eliquis. His heart rate is still not well-controlled. He averages at around 100 beats per minute. I am going to leave his medications unchanged, though I certainly would prefer if he does not get digoxin. He has a lot of PVCs and I do not want to get another proarrhythmic drug on board. I would also appreciate if the Haldol is used very sporadically. His mental status certainly seems to be much improved as well. I will follow the patient with you. NOAH
[2019-04-20] MEDS: APIXABAN 5 MG TAB (ELIQUIS) PO SCH ×2 (08:51→19:55)
[2019-04-20] MEDS: SENOKOT S TAB PO SCH ×2 (08:51→19:55)
[2019-04-20] MEDS: haloperidoL 1 MG TAB PO SCH (08:51)
[2019-04-20] MEDS: NICOTINE 21MG/24HR 1 EA TRANSDERMAL TD SCH (08:52)
[2019-04-20 12:00] VITALS: BP 136/63
[2019-04-20] MEDS: POTASSIUM CHLORIDE 10% LIQ 20 MEQ/15 ML UDC PO ONE ×2 (14:00→15:02)
--- NOTE | 2019-04-20 14:20 | IPNPDOC ---
Text Note Date of Service The patient was seen on 04/20/19. NOTE Subjective: No any acute events overnight, patient is alert and awake in the morning. Telemetry shows multiple PVCs Objective: General: Somnolent male HEENT: PERRLA, EOMI Lungs: CTA CV: S1-S2 Abdomen: Nontender, nondistended Extremities: No clubbing, no cyanosis Neuro: Nonfocal Assessment and plan: Patient 73 years old male with past history of allergy, asthma presented [facility] with acute CHF exacerbation, superimposed with COPD exacerbation/pneumonia Acute metabolic encephalopathy Resolved Could be secondary to steroids DC Haldol I discontinued steroids TARI Improved Most likely secondary to cardiorenal syndrome Continue torsemide, metolazone Neurologist team follows him Acute systolic CHF Ejection fraction around 20% superimposed with mitral and tricuspid re gurgitation and acute kidney failure Continue diuresis I's and O's COPD/ emphysima exacerbation I DC steroids due to metabolic encephalopathy Continue inhalers Pneumonia Patient completed the course of antibiotics There is concern for aspiration Speech specialist evaluation Congestive hepatopathy Improved Secondary to hepatorenal syndrome Hypervolemic hyponatremia Secondary to cardiorenal syndrome Continue diuresis Atrial fibrillation Patient still tachycardic with heart rate around 100 Patient developed multiple PVCs Discontinued digoxin Continue beta marion Continue targeted oral anticoagulation VS,Fishbone, I+O VS, Fishbone, I+O Laboratory Tests 04/19/19 17:32 04/20/19 05:19 Vital Signs Date Time Temp Pulse Resp B/P (MAP) Pulse Ox O2 Delivery O2 Flow Rate FiO2 04/20/19 13:12 136/63 04/20/19 13:12 78 04/20/19 12:00 97.6 16 89 Room Air 04/14/19 01:45 2.0 I&O- Last 24 Hours up to 6 AM 04/20/19 06:00 Intake Total 320 ml Output Total 6550 ml Balance -6230 ml MOLLY CONRAD DO Apr 20, 2019 14:20
[2019-04-20] MEDS ORDERED: guaiFENesin ER 600 MG TAB PO ONE (15:30)
[2019-04-20 16:00] VITALS: BP 136/64
[2019-04-20] MEDS: guaiFENesin ER 600 MG TAB PO SCH (19:54)
[2019-04-20] MEDS: RAMELTEON 8 MG TAB (ROZEREM) PO SCH (19:55)
[2019-04-20 20:00] VITALS: BP 135/63
--- NOTE | 2019-04-20 22:58 | IPN ---
DATE: 04/19/2019 SUBJECTIVE: I saw Henok walking around the unit and then later at the bedside sitting in his recliner. He reports excellent urine output and remains on room air and reports his leg edema is improving. Temperature 96.7, pulse 106, respiratory rate 20, blood pressure 133/64, saturating 91% on room air. Intake yesterday was 750, urine output yesterday was 1275, urine output today is already 4 liters. Weight in the bed scale today is 69.6 kg. General: The patient is seen walking around the unit and later sitting in the recliner, elderly male, frail body habitus, in no apparent distress, oriented to person, place, situation. Extraocular muscles are intact. Pupils are equal, round and reactive to light. Neck is supple. Jugular veins are elevated. Heart sounds are irregularly irregular, S1, S2 and mild tachycardia. There is 2+ edema in the legs that comes up to the midthigh. Lungs show diminished breath sounds at the bases with bibasilar crackles. Abdomen is soft and nontender. The abdominal wall edema is improved. Musculoskeletal: There is 2+ edema in the legs and thighs. Neurologic: He is interactive and conversational, cooperative with physical exam and oriented to person, place, situation. LABS: White count 13.4, hemoglobin 11.5, platelets 114, sodium 133, potassium 3.4, bicarbonate 35, BUN 90, creatinine 1.8, magnesium 2.1. AST and ALT are down trending. INPATIENT MEDICATIONS: He continues on Lasix drip at 5 mg an hour. He received 80 mEq of potassium chloride orally today, and he is now on oral prednisone 40 mg daily. Remainder of medications are unchanged from prior. PROBLEMS: 1. Acute kidney injury (TARI) secondary to contrast-induced nephropathy and cardiorenal syndrome. He is being diuresed. He is on Lasix drip. He was given a one-time dose of metolazone. His urine output is improving. His serum creatinine is down trending. His blood urea nitrogen did mildly rise. Will get a repeat renal panel tomorrow. I will hold off on further metolazone at this time. We will continue the Lasix drip. 2. Decompensated systolic congestive heart failure. Volume status is improving. He is on beta marion and a strong vasodilatory regimen by cardiology. He is receiving Lasix drip at 5 mg an hour and is responding well. No further need of metolazone at this time. 3. Hyponatremia. It is secondary to decompensated heart failure and hypervolemia. It is improving with diuresis. 4. Congestive hepatopathy. It is improving with treatment of congestive heart failure. 5. Hypokalemia. It is due to combination Lasix and metolazone. He is receiving aggressive potassium supplementation, and I will get a repeat renal panel this evening. 6. Atrial fibrillation with rapid ventricular response (RVR). He is on beta marion and Eliquis anticoagulation. Keep magnesium greater than 2 and potassium greater than 4. We will get repeat potassium and magnesium level this evening given his significant diuresis and 4 liter urine output already today.
[2019-04-21] VITALS: BP 135/62
[2019-04-21] MEDS: LEVALBUTEROL 1.25 MG/0.5 ML CONCENTRATE NEB INH SCH ×4 (00:14→23:49)
[2019-04-21 04:00] VITALS: BP 122/64
[2019-04-21] MEDS: ISOSORBIDE DIN (ISORDIL) 10 MG TAB PO SCH ×3 (05:44→16:43)
[2019-04-21] MEDS: **hydrALAZINE** 10 MG TAB PO SCH ×3 (05:45→16:42)
[2019-04-21] MEDS: METOPROLOL TART 25 MG TABLET PO SCH ×3 (05:45→16:42)
[2019-04-21] MEDS: SLF 3 ML SYR IV SCH ×3 (05:46→20:43)
[2019-04-21] MEDS: BUDESONIDE 0.5 MG/2 ML INHALATION SUSPENSION INH SCH ×2 (07:20→20:14)
[2019-04-21 08:00] VITALS: BP 125/58
[2019-04-21] MEDS ORDERED: LevoFLOXacin 500 MG TABLET PO SCH (08:00)
--- NOTE | 2019-04-21 08:27 | IPN ---
DATE: 04/21/2019 Mr. Brown converted back to sinus rhythm yesterday morning. It was rather surprising and he has had several relapses of atrial fibrillation since but for the most part has been maintaining sinus rhythm. He feels overall better. He did not get any diuretics yesterday but yet his fluid balance was still very negative. He has no specific complaints this morning. Vital Signs reveal blood pressure 148/62, heart rate has been in 60s and 70s predominantly sinus rhythm with still frequent ventricular ectopy, even though he did not have as much ventricular tachycardia (VT) as he had yesterday morning. Saturation was 92% on room air. Fluid balance recorded negative 3 liters yesterday. Weight is recorded at 55.6 kg. He is alert and oriented and appropriate. His jugular venous pulse (JVP) is not high. Lungs are clear. I do not appreciate any wheezing or crackles but air movement is rather fair. Heart: Exam reveals regular rhythm. Again I do not appreciate distinct gallop or rub. There is murmur heard over the mitral valve about 2 to 3 out of 6 intensity. Abdomen is soft, nontender. Peripheral edema is almost completely gone. No laboratories were drawn this morning. ASSESSMENT/PLAN: Mr. Brown is a 73-year-old man who has presented with congestive heart failure. He was found to have severe left ventricular systolic dysfunction and was also in atrial fibrillation. Somewhat to my surprise, he converted to sinus rhythm and for the most part has been maintaining it which is certainly a welcome development. As far as the heart failure is concerned, I do believe that he is essentially euvolemic at this point and I think considering very frequent ventricular ectopy including runs of ventricular tachycardia yesterday, I would be very careful with monitoring electrolytes and replacing them aggressively. I also would suggest that we do not give him any diuretics today. Hopefully, this will stabilize intracellular shifts of electrolytes. I also would be suggesting not to give him Levaquin which is a substance that is known to make people prone to long QT syndrome and arrhythmias. But overall, I do think he is progressing well and I am hopeful that he will be able to go home within 2-3 days. NOAH
[2019-04-21] MEDS: guaiFENesin ER 600 MG TAB PO SCH ×2 (08:29→20:40)
[2019-04-21] MEDS: APIXABAN 5 MG TAB (ELIQUIS) PO SCH ×2 (08:29→20:40)
[2019-04-21] MEDS: SENOKOT S TAB PO SCH ×2 (08:29→20:40)
[2019-04-21] MEDS: NICOTINE 21MG/24HR 1 EA TRANSDERMAL TD SCH (08:30)
[2019-04-21 08:40] LABS: BASO % 0.1 % (0.0-1.0); EOS % 0.2 % (0.0-3.0); HEMATOCRIT 39.3 % (42.0-52.0); HEMOGLOBIN 12.3 g/dl (13.5-17.5); LYMPH # 0.7 10^3/uL (1.5-5.0); LYMPH % 4.1 % (24.0-44.0); MEAN CORPUSCULAR HEMOGLOBIN 30.4 pg (27.0-33.0); MEAN CORPUSCULAR HGB CONC 31.3 g/dl (32.0-36.5); MONO # 0.7 10^3/uL (0.0-0.8); MONO % 4.3 % (0.0-5.0); NEUTROPHILS # 15.5 10^3/uL (1.5-8.5); NEUTROPHILS % 90.6 % (36.0-66.0); PLATELET COUNT, AUTOMATED 131 10^3/uL (150-450); RED BLOOD COUNT 4.05 10^6/uL (4.30-6.10); WHITE BLOOD COUNT 17.1 10^3/uL (4.0-10.0)
[2019-04-21] MEDS ORDERED: SPIRONOLACTONE 25 MG TAB PO SCH (09:00)
[2019-04-21] MEDS ORDERED: TORSEMIDE 20 MG TAB PO SCH (09:00)
[2019-04-21 09:09] LABS: CALCIUM LEVEL 8.8 MG/DL (8.8-10.2); CREATININE FOR GFR 1.29 MG/DL (0.70-1.30); GLOMERULAR FILTRATION RATE 58.3 (>42); MAGNESIUM LEVEL 2.4 MG/DL (1.8-2.4); POTASSIUM SERUM 3.7 MEQ/L (3.5-5.1)
--- NOTE | 2019-04-21 11:12 | IPN ---
DATE: 04/20/2019 SUBJECTIVE: The patient is seen and examined sitting out of bed to the chair. He reports he has not yet walked around the unit. He is net negative more than 6 liters in the past 24 hours. His diuretics are presently held. OBJECTIVE: Blood pressure 137/58, heart rate 90s to 100s and temperature is afebrile, saturating 91% on room air. Net negative 6 liters in the past 24 hours. Weight in the bed scale today is 56.3 kg. The patient is seen sitting upright in the chair elderly male, somewhat frail appearing in no apparent distress. Extraocular muscles are intact. Tongue is moist. Neck is supple. Jugular veins are still a little elevated while he is sitting up right. Heart sounds are irregularly irregular. There is 1+ leg edema and 2+ foot and ankle edema. Lung sound fairly clear. He is comfortable on room air. There is no accessory muscle use or tachypnea. Abdomen is soft and nontender. Genitourinary: Shows Weber catheter with urine. Neurologic: He is interactive conversational and oriented times three. LABS: Sodium 134, potassium 3.3, BUN 82, creatinine 1.5, glucose 130. Hemoglobin 12.7. INPATIENT MEDICATIONS: I discontinued the Lasix drip and started him on torsemide 20 mg twice daily with spironolactone 25 mg once daily, both diuretics to start tomorrow. PROBLEMS: 1. Acute kidney injury (TARI) on chronic kidney disease (CKD) stage II. APT is in the setting of contrast induced nephropathy and cardiorenal syndrome. He has done well with diuresis. His serum creatinine has improved nicely and today his blood urea nitrogen also somewhat came down. We are doing a diuretic holiday today as he is net negative more than 6 liters in the past 24 hours. I would plan to transition him to oral diuretics tomorrow. 2. Acute decompensated systolic congestive heart failure. Volume status is nicely improving. He is on beta marion and a strong vasodilatory regimen managed by cardiology. His blood pressures are optimal. He is net negative more than 6 liters. We are planning diuretic holiday today. Tomorrow he will start oral torsemide with spironolactone. 3. Metabolic alkalosis: It is due to aggressive diuresis. We will plan for 1 day diuretic holiday and plan for oral diuretics tomorrow. 4. Hypokalemia: It is again due to combination loop with the thiazide diuretic. I will plan to start him on spironolactone tomorrow. He is receiving oral potassium supplementation. His magnesium level is appropriate. 5. Congestive hepatopathy: His liver function tests are improving with diuresis. 6. Hypervolemic/hyponatremia: Serum sodium is coming up with diuresis.
[2019-04-21 12:00] VITALS: BP 126/58
--- NOTE | 2019-04-21 13:08 | IPNPDOC ---
Text Note Date of Service The patient was seen on 04/21/19. NOTE Subjective: No any acute events overnight, patient was confused in the morning, disoriented Objective: General: Slightly confused male, disoriented with bitemporal wasting HEENT: PERRLA, EOMI Lungs: Mild coarse lung sounds bilaterally CV: S1-S2 Abdomen: Nontender, nondistended Extremities: No clubbing, no cyanosis Neuro: Nonfocal Assessment and plan: Patient 73 years old male with past history of allergy, asthma presented hospital with acute CHF exacerbation, superimposed with COPD exacerbation/pneumonia Acute metabolic encephalopathy DC steroids DC Haldol Patient slightly confused today, disoriented Frequent re-orientation TARI Improved Most likely secondary to cardiorenal syndrome diuretics on hold for today due to metabolic alkalosis Multigrapher team follows him Metabolic alkalosis Secondary to aggressive diuresis See above Acute systolic CHF Ejection fraction around 20% superimposed with mitral and tricuspid regurgitation and acute kidney failure Continue diuresis I's and O's COPD/ emphysema exacerbation I DC steroids due to metabolic encephalopathy Continue inhalers Patient has increased congestion in his chest with cough, leukocytosis I restarted doxycycline 100 mg twice a day Pneumonia Patient completed the course of antibiotics There is concern for aspiration Speech specialist evaluation Congestive hepatopathy Improved Secondary to hepatorenal syndrome Hypervolemic hyponatremia Secondary to cardiorenal syndrome Resolved Atrial fibrillation Heart rate is under control, converted to sinus rhythm. 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
[2019-04-21] MEDS ORDERED: POTASSIUM CHLORIDE 10 MEQ SR TABLET PO ONE (13:15)
[2019-04-21] MEDS: DOXYCYCLINE HYCLATE 100 MG TAB PO SCH ×2 (13:36→20:40)
[2019-04-21 16:00] VITALS: BP 142/71
[2019-04-21] MEDS: NYSTATIN 500,000 U/5 ML SUSP UDC SS SCH ×2 (16:43→20:40)
--- NOTE | 2019-04-21 18:27 | IPN ---
DATE: 04/21/2019 SUBJECTIVE: Henok is seen and examined this morning at the bedside. Has been ambulating around the unit. Denies any overnight events or complaints. His diuretics have been on hold. His renal function continues to improve. He is saturating well on room air. Vital signs: Temperature 97.5, pulse64, respiratory rate 21, blood pressure 126/58, saturating 95% on room air. Intake yesterday was not fully recorded. Urine output was 3.5 liters. Weight in the bed scale today is 55.6 kg. In general, patient is seen lying flat in bed, awake, alert, oriented, comfortable in no apparent distress. Extraocular muscles are intact. There is bitemporal wasting. He is frail appearing. Jugular veins are not elevated today. There is prolonged expiration and occasional rhonchus. He is seen comfortable on room air. No accessory muscle use. No tachypnea. Cardiac: S1, S2, regular rate and rhythm. There is 1+ ankle edema. Abdomen is soft and nontender. Genitourinary shows condom catheter draining clear yellow urine. Extremities show now only ankle edema. There is no clubbing or cyanosis. Neurologic: He is a cooperative with physical exam and oriented to person, place, and situation. LABORATORY DATA: White count 17.1, hemoglobin 12.3, platelet 131. Sodium 139, potassium 3.7, bicarbonate 42, BUN 59, creatinine 1.2. INPATIENT MEDICATIONS: Reviewed by myself. He was started on doxycycline 100 mg by mouth twice daily, nystatin swish and swallow, and given a dose of potassium chloride 48 mEq by mouth times one. His diuretics remain on hold. Remainder medications are unchanged from prior. PROBLEMS: 1. Acute kidney injury (TARI)I on chronic kidney disease (CKD), stage II. TARI is secondary to contrast-induced nephropathy and cardiorenal syndrome. He has done well with diuresis. He has been off of diuretics for the past 2 days. His serum creatinine and blood urea nitrogen are both improving. I am continuing to hold diuretics for now, as he is auto-diuresing well. 2. Decompensated systolic congestive heart failure. Volume status has nicely improved. I would say that he is now actually compensated. He is on beta marion and strong vasodilatory regimen, managed by cardiology. Blood pressures are optimal. He is auto-diuresing. His diuretics are presently held, and we will resume when indicated. 3. Metabolic alkalosis. It is due to aggressive diuresis. Serum bicarbonate is up to 40. His diuretics were held. 4. Hypokalemia, again due to diuresis. He is receiving oral potassium supplementation. His magnesium level is appropriate. 5. Congestive hepatopathy. It is improving. His liver function tests are down trending. 6. Hypervolemic hyponatremia. Today is the first day with a normal serum sodium.
[2019-04-21 20:00] VITALS: BP 129/61
[2019-04-21] MEDS: RAMELTEON 8 MG TAB (ROZEREM) PO SCH (20:40)
[2019-04-22] VITALS: BP 128/61
[2019-04-22] MEDS: METOPROLOL TART 25 MG TABLET PO SCH ×4 (00:15→17:11)
[2019-04-22 04:00] VITALS: BP 120/62
[2019-04-22] MEDS: **hydrALAZINE** 10 MG TAB PO SCH (05:38)
[2019-04-22] MEDS: SLF 3 ML SYR IV SCH ×3 (05:39→20:02)
[2019-04-22] MEDS: ISOSORBIDE DIN (ISORDIL) 10 MG TAB PO SCH (05:39)
[2019-04-22 06:11] LABS: BASO % 0.1 % (0.0-1.0); EOS % 0.2 % (0.0-3.0); HEMATOCRIT 38.3 % (42.0-52.0); LYMPH # 0.7 10^3/uL (1.5-5.0); LYMPH % 4.2 % (24.0-44.0); MEAN CORPUSCULAR HEMOGLOBIN 30.2 pg (27.0-33.0); MEAN CORPUSCULAR HGB CONC 31.3 g/dl (32.0-36.5); MEAN CORPUSCULAR VOLUME 96.5 fl (80.0-96.0); MONO # 0.7 10^3/uL (0.0-0.8); MONO % 4.2 % (0.0-5.0); NEUTROPHILS # 14.6 10^3/uL (1.5-8.5); NEUTROPHILS % 90.4 % (36.0-66.0); PLATELET COUNT, AUTOMATED 131 10^3/uL (150-450); RED BLOOD COUNT 3.97 10^6/uL (4.30-6.10); WHITE BLOOD COUNT 16.1 10^3/uL (4.0-10.0)
[2019-04-22 06:33] LABS: BLOOD UREA NITROGEN 44 MG/DL (7-18); CALCIUM LEVEL 8.3 MG/DL (8.8-10.2); CARBON DIOXIDE LEVEL 35 MEQ/L (21-32); CHLORIDE LEVEL 99 MEQ/L (98-107); CREATININE FOR GFR 1.05 MG/DL (0.70-1.30); GLOMERULAR FILTRATION RATE > 60.0 (>42); GLUCOSE, FASTING 90 MG/DL (70-100); POTASSIUM SERUM 3.6 MEQ/L (3.5-5.1); SODIUM LEVEL 139 MEQ/L (136-145)
[2019-04-22] MEDS: BUDESONIDE 0.5 MG/2 ML INHALATION SUSPENSION INH SCH ×2 (07:03→20:24)
[2019-04-22] MEDS: LEVALBUTEROL 1.25 MG/0.5 ML CONCENTRATE NEB INH SCH ×2 (07:04→16:43)
[2019-04-22 08:00] VITALS: BP 124/58
[2019-04-22] MEDS ORDERED: POTASSIUM CHLORIDE 10 MEQ SR TABLET PO ONE (08:00)
[2019-04-22] MEDS: NICOTINE 21MG/24HR 1 EA TRANSDERMAL TD SCH (08:12)
[2019-04-22] MEDS: NYSTATIN 500,000 U/5 ML SUSP UDC SS SCH ×4 (08:12→20:01)
[2019-04-22] MEDS: guaiFENesin ER 600 MG TAB PO SCH ×2 (08:13→20:02)
[2019-04-22] MEDS: DOXYCYCLINE HYCLATE 100 MG TAB PO SCH ×2 (08:13→20:02)
[2019-04-22] MEDS: ENTRESTO 24-26MG TABLET (SACUBITRIL/VALSARTAN) PO SCH ×2 (08:13→20:18)
[2019-04-22] MEDS: APIXABAN 5 MG TAB (ELIQUIS) PO SCH ×2 (08:13→20:02)
[2019-04-22] MEDS: SENOKOT S TAB PO SCH ×2 (08:13→20:02)
--- NOTE | 2019-04-22 08:39 | IPN ---
DATE: 04/22/2019 Mr. Brown has been doing quite well. He most of the time remains in sinus rhythm, even though unfortunately he still has significant ventricular ectopy including runs of nonsustained ventricular tachycardia, but he feels much better. Shortness of breath is improving. Denies any chest discomfort. There is no dizziness or near/syncope. Vital signs this morning blood pressure 134/60, heart rate in 60s and 70s. He is afebrile. Saturation is 95% on room air. Fluid balance yesterday was about 800 negative even though he did not get any diuretics. Weight is 53.8 kg. He is alert and oriented appropriate. Jugular venous pulse (JVP) is not high. Lungs are relatively clear but the air movement remains rather poor. Heart exam reveals regular rhythm, somewhat difficult to auscultate with his chronic obstructive pulmonary disease (COPD) and prominent ribs it is difficult to get a contact with his skin, but I do not appreciate any pete gallop or murmur. Abdomen is cachectic but soft. No evidence for ascites. His peripheral edema is completely resolved. Laboratories: Basic metabolic panel: Sodium 139, potassium 3.6, BUN 44, creatinine 1.0, and glucose 90. CBC: Hemoglobin is 12, hematocrit 38, platelet count is 31,000, WBC count 16.1. ASSESSMENT AND PLAN: Mr. Brown is a 73-year-old man who came with acute systolic heart failure and chronic obstructive pulmonary disease exacerbation. I suspect that he has cardiomyopathy that is nonischemic in nature, but certainly ischemic etiology should be considered as well. His heart failure at this point is well controlled. He initially had acute renal failure but because there has been recovery I believe that we can start him on angiotensin receptor-neprilysin inhibitors (ARNI). I will start him on small dose Entresto twice a day. He is already on a beta-marion and seems to be tolerating that fine. As far as the atrial fibrillation is concerned, he has been anticoagulated with apixaban. Again, no signs of bleeding. Even though he is currently in sinus rhythm, I would continue anticoagulation for at least a few months. [facility]
[2019-04-22 12:00] VITALS: BP 107/57
--- NOTE | 2019-04-22 12:57 | IPNPDOC ---
Text Note Date of Service The patient was seen on 04/22/19. NOTE Subjective: No any acute events overnight, patient was more awake in the morn ing, but disoriented to place General: Slightly confused male, disoriented with bitemporal wasting HEENT: PERRLA, EOMI Lungs: Mild coarse lung sounds bilaterally CV: S1-S2 Abdomen: Nontender, nondistended Extremities: No clubbing, no cyanosis Neuro: Nonfocal Assessment and plan: Patient 73 years old male with past history of allergy, asthma presented hospital with acute CHF exacerbation, superimposed with COPD exacerbation/pneumonia Acute metabolic encephalopathy DC steroids DC Haldol Patient continues to be disoriented Frequent re-orientation TARI Improved Most likely secondary to cardiorenal syndrome [employer] Learning Support Teacher team follows him Metabolic alkalosis Secondary to aggressive diuresis Diuretics on hold Acute systolic CHF Ejection fraction around 20% superimposed with mitral and tricuspid regurgitation and acute kidney failure, most likely he develop CHF secondary to atrial fibrillation with rapid ventricular rate, he will need workup for ischemic cardiomyopathy in the outpatient settings Entresto started I's and O's COPD/ emphysema exacerbation Improved I DC steroids due to metabolic encephalopathy Patient has increased congestion in his chest with cough, leukocytosis I restarted doxycycline 100 mg twice a day Pneumonia Patient completed the course of antibiotics Resolved Now we treat acute on chronic bronchitis Congestive hepatopathy Improved Secondary to hepatorenal syndrome Hypervolemic hyponatremia Secondary to cardiorenal syndrome Resolved Atrial fibrillation Heart rate is under control, converted to sinus rhythm. Discontinued digoxin Continue beta marion Continue targeted oral anticoagulation Electrolytes abnormalities Hypokalemia replaced Cachexia patient has bitemporal wasting with BMI of 18 Follow kitchen mechanic recommendation VS,Britton, I+O VS, Britton, I+O Laboratory Tests 04/22/19 05:40 Vital Signs Date Time Temp Pulse Resp B/P (MAP) Pulse Ox O2 Delivery O2 Flow Rate FiO2 04/22/19 12:26 74 114/57 04/22/19 08:00 97.8 20 97 Room Air I&O- Last 24 Hours up to 6 AM 04/22/19 05:59 Intake Total 480 ml Output Total 1575 ml Balance -1095 ml MOLLY CONRAD DO Apr 22, 2019 12:57
[2019-04-22 16:00] VITALS: BP 111/57
--- NOTE | 2019-04-22 18:50 | IPN ---
DATE: 04/22/2019 SUBJECTIVE: Henok is seen and examined this morning at the bedside. He denies any complaints or issues. Has been walking around the halls with physical therapy. Continues to autodiuresis and has not been requiring any diuretic. He was started on Entresto today by cardiology. His renal function has recovered towards baseline. Vital signs: Temperature 97.1, pulse 64, respiratory rate 18, blood pressure 107/57, saturating 96% on room air. Review of intake and output yesterday shows he is net negative 800. Weight in the bed scale today is 53. Kg. General: He is seen sitting out of bed to the chair. Elderly male in no apparent distress, frail. Bitemporal wasting. Awake, alert, oriented, interactive. Heart sounds are somewhat irregular. There is only pedal edema now. Lungs show diminished breath sounds with prolonged expiration and scattered rhonchus. He is comfortable on room air. Abdomen is soft and nontender. Musculoskeletal: There is muscle wasting. He moves all four extremities on command. Neurologic: He is cooperative with physical exam and oriented and conversational. LABORATORY DATA: Sodium 139, potassium 3.6, bicarbonate 35, BUN 44, creatinine 1.0. Hemoglobin 12, white count 16. INPATIENT MEDICATIONS: He was started on Entresto 24/26 mg twice daily. He is off of hydralazine and Isordil. Remainder medications is unchanged from prior. PROBLEMS: 1. Chronic kidney disease (CKD), stage II. His acute kidney injury has resolved. He has diuresed very well. He has been off of diuretics the past few days and continues to autodiuresis. He has now been started on low-dose Entresto by cardiology service, and I feel he is likely to tolerate it well. His vasodilators have been stopped. Continue to hold diuretics for now. 2. Systolic congestive heart failure. Compensated volume status. Diuretics remain on hold. He is in daily net-negative fluid balance, and when he is discharged I feel he is only likely to need a small amount of oral diuretic given that he is also already on Entresto twice daily. 3. Hypokalemia due to diuresis. Now he is being started on angiotensin receptor marion (ARB), which is likely to help maintain normal potassium levels. His magnesium level is also appropriate. 4. Metabolic alkalosis due to aggressive diuresis. Serum bicarbonate is now decreasing. Loop diuretic remains on hold.
[2019-04-22 20:00] VITALS: BP 97/54
[2019-04-22] MEDS: RAMELTEON 8 MG TAB (ROZEREM) PO SCH (20:02)
[2019-04-23] VITALS: BP 136/63
[2019-04-23] MEDS: LEVALBUTEROL 1.25 MG/0.5 ML CONCENTRATE NEB INH SCH ×4 (00:19→23:57)
[2019-04-23] MEDS: METOPROLOL TART 25 MG TABLET PO SCH ×2 (00:30→05:48)
[2019-04-23 04:00] VITALS: BP 126/58
[2019-04-23] MEDS: SLF 3 ML SYR IV SCH ×3 (05:48→22:07)
[2019-04-23 06:08] LABS: BASO % 0.1 % (0.0-1.0); EOS % 0.1 % (0.0-3.0); HEMOGLOBIN 12.2 g/dl (13.5-17.5); LYMPH # 0.7 10^3/uL (1.5-5.0); MEAN CORPUSCULAR HEMOGLOBIN 31.3 pg (27.0-33.0); MEAN CORPUSCULAR VOLUME 94.9 fl (80.0-96.0); MONO # 0.7 10^3/uL (0.0-0.8); MONO % 4.5 % (0.0-5.0); NEUTROPHILS # 14.8 10^3/uL (1.5-8.5); NEUTROPHILS % 90.6 % (36.0-66.0); PLATELET COUNT, AUTOMATED 120 10^3/uL (150-450); WHITE BLOOD COUNT 16.4 10^3/uL (4.0-10.0)
[2019-04-23 06:36] LABS: BLOOD UREA NITROGEN 45 MG/DL (7-18); CARBON DIOXIDE LEVEL 34 MEQ/L (21-32); CHLORIDE LEVEL 102 MEQ/L (98-107); CREATININE FOR GFR 0.98 MG/DL (0.70-1.30); GLOMERULAR FILTRATION RATE > 60.0 (>42); GLUCOSE, FASTING 99 MG/DL (70-100); MAGNESIUM LEVEL 1.9 MG/DL (1.8-2.4); POTASSIUM SERUM 3.6 MEQ/L (3.5-5.1); SODIUM LEVEL 139 MEQ/L (136-145)
[2019-04-23] MEDS: BUDESONIDE 0.5 MG/2 ML INHALATION SUSPENSION INH SCH ×2 (07:10→19:50)
--- NOTE | 2019-04-23 07:55 | IPN ---
DATE: 04/23/2019 Mr. Brown had an uneventful day yesterday. He was able to ambulate and believes that his exertional tolerance is improving. He feels almost back to his baseline. He said not quite yet, but getting there every day. Denies any chest pain. Denies any palpitations. Telemetry monitoring reveals ongoing sinus rhythm, but unfortunately he continues to have a runs of nonsustained ventricular tachycardia even though the frequency is certainly getting better. Vital signs this morning, blood pressure 126/58, heart rate has been in 60s and 70s and at night dipping into 50s, sinus rhythm, saturation 96% on room air. His fluid balance yesterday was recorded approximately equal. Weight has not changed, it is 53.7 kg. He is alert, oriented and appropriate. His jugular venous pulse (JVP) is not high. Lungs are relatively clear even though air movement remains fair. I do not appreciate any wheezing or crackles. Heart exam reveals regular rhythm. There is a faint murmur at the apex that is holosystolic in nature. Abdomen is soft. No tenderness. Extremities are free of edema. Neurologically, he is intact even though he is somnolent and is arousable and appropriate, but then during the discussion he has been repeatedly falling asleep. LABORATORIES: This morning, sodium 139, potassium 3.6, BUN 45, creatinine 1, and glucose 99. CBC with hemoglobin 12.2, hematocrit 37 and WBC count is 16.4. ASSESSMENT/PLAN: Mr. Brown is a 73-year-old man with longstanding history of smoking, but no prior history of cardiac problems who presented with shortness of breath likely due to a combination of respiratory problem as well as acute systolic congestive heart failure. He also was in atrial fibrillation with rapid ventricular response (RVR). With ongoing medical management, he continues to improve. I started him on ENTRESTO yesterday. Unfortunately, he did not receive the evening dose because the blood pressure was too low. Hopefully, he will be able to get both doses today. I am also going to change his metoprolol to long release form, which is evidence based choice. I do not believe he needs any diuretics at this point. From my perspective, he is getting close to discharge. Unfortunately, with LV dysfunction and ongoing episodes of nonsustained ventricular tachycardia (VT), I think we should arrange for LifeVest before discharge. I will start making arrangements. Otherwise, will see him in followup. Dr. Manning was the initial consulting wooden boat builder, so he will remain his patient.
[2019-04-23 08:00] VITALS: BP 109/55
[2019-04-23] MEDS ORDERED: POTASSIUM CHLORIDE 10 MEQ SR TABLET PO ONE (08:00)
[2019-04-23] MEDS: NYSTATIN 500,000 U/5 ML SUSP UDC SS SCH ×3 (08:50→22:07)
[2019-04-23] MEDS: NICOTINE 21MG/24HR 1 EA TRANSDERMAL TD SCH (08:50)
[2019-04-23] MEDS: ENTRESTO 24-26MG TABLET (SACUBITRIL/VALSARTAN) PO SCH ×2 (08:52→22:06)
[2019-04-23] MEDS: DOXYCYCLINE HYCLATE 100 MG TAB PO SCH ×2 (08:52→22:07)
[2019-04-23] MEDS: METOPROLOL SUCC (TopROL XL) 100MG *XL* TAB PO SCH (08:53)
[2019-04-23] MEDS: guaiFENesin ER 600 MG TAB PO SCH ×2 (08:53→22:07)
[2019-04-23] MEDS: SENOKOT S TAB PO SCH ×2 (08:53→21:00)
[2019-04-23] MEDS: APIXABAN 5 MG TAB (ELIQUIS) PO SCH ×2 (08:53→22:07)
[2019-04-23] MEDS ORDERED: NYSTATIN 500,000 U/5 ML SUSP UDC SS SCH (09:00)
[2019-04-23 12:00] VITALS: BP 111/57
--- NOTE | 2019-04-23 14:02 | IPNPDOC ---
Text Note Date of Service The patient was seen on 04/23/19. NOTE Subjective: No any acute events overnight, patient was awake, alert in the m orning. His mental status significantly improved. General: Slightly confused male, disoriented with bitemporal wasting HEENT: PERRLA, EOMI Lungs: Mild coarse lung sounds bilaterally CV: S1-S2 Abdomen: Nontender, nondistended Extremities: No clubbing, no cyanosis Neuro: Nonfocal Assessment and plan: Patient 73 years old male with past history of allergy, asthma presented hospital with acute CHF exacerbation, superimposed with COPD exacerbation/pneumonia Acute metabolic encephalopathy Resolved TARI Resolved Most likely secondary to cardiorenal syndrome Security Infrastructure Engineer team follows him dc diuretics Metabolic alkalosis Resolved Secondary to aggressive diuresis Acute systolic CHF Ejection fraction around 20% superimposed with mitral and tricuspid regurgitation and acute kidney failure, most likely he develop CHF secondary to atrial fibrillation with rapid ventricular rate, he will need workup for ischemic cardiomyopathy in the outpatient settings Entresto started Back Joiner team recommended LifeVest on the discharge I's and O's COPD/ emphysema exacerbation Improved I DC steroids due to metabolic encephalopathy Patient has increased congestion in his chest with cough, leukocytosis I restarted doxycycline 100 mg twice a day Pneumonia Patient completed the course of antibiotics Resolved Now we treat acute on chronic bronchitis Congestive hepatopathy Improved Secondary to hepatorenal syndrome Hypervolemic hyponatremia Secondary to cardiorenal syndrome Resolved Atrial fibrillation Heart rate is under control, converted to sinus rhythm. Discontinued digoxin Continue beta marion Continue targeted oral anticoagulation Electrolytes abnormalities Hypokalemia replaced Cachexia patient has bitemporal wasting with BMI of 18 Follow hospice admitting clerk recommendation VS,Britton, I+O VS, Britton, I+O Laboratory Tests 04/23/19 05:49 Vital Signs Date Time Temp Pulse Resp B/P (MAP) Pulse Ox O2 Delivery O2 Flow Rate FiO2 04/23/19 08:53 68 109/55 04/23/19 08:00 97.4 20 95 Room Air I&O- Last 24 Hours up to 6 AM 04/23/19 06:00 Intake Total 700 ml Output Total 250 ml Balance 450 ml MOLLY CONRAD DO Apr 23, 2019 14:02
[2019-04-23 16:00] VITALS: BP 100/59
--- NOTE | 2019-04-23 17:50 | IPN ---
DATE: 04/23/2019 SUBJECTIVE: The patient is seen and examined this morning at the bedside. His family reports that he has odynophagia and has not been eating a whole lot; however, he has been walking around the unit. His diuretics have been held for most of this week, and his urine output seems to be plateauing off now, as he approaches euvolemia. He has tolerated addition of Entresto very well. Vital signs: Temperature 97.4, pulse 60, respiratory rate 20, blood pressure 109/55, saturating 95% on room air. Review of intake and output yesterday shows an equivalent fluid balance. Weight in the bed scale today is 53.7 kg. General: The patient is seen lying fairly flat in bed. Elderly, frail male, cachectic appearing. Bitemporal wasting. Extraocular muscles are intact. Jugular veins are not distended. Breath sounds are symmetric and diminished. There is no crackle or rale. Heart sounds are regular. There is absolutely no edema. Abdomen is soft. There are bowel sounds. Extremities are negative for edema, clubbing, or cyanosis. Neurologic: He is oriented times three and cooperative with physical exam. Musculoskeletal: There is significant muscle wasting. LABORATORY DATA: Sodium 139, potassium 3.6, bicarbonate 34, BUN 45, creatinine 0.9, magnesium 1.9. Hemoglobin 12.2. Stool occult blood positive. INPATIENT MEDICATIONS: Reviewed by myself. Continues on low-dose Entresto twice daily. PROBLEMS: 1. Chronic kidney disease (CKD), stage II. Acute kidney injury has resolved. He has diuresis very well. He appears euvolemic. He was started on Entresto twice a day and has tolerated it very well. His electrolytes are acceptable. His metabolic alkalosis is also improving. 2. Systolic congestive heart failure, compensated volume status. Tolerating initiation of Entresto well. Also on beta marion. Pending ischemic workup in the outpatient setting. 3. Hypokalemia due to diuresis. Now that he is on twice-daily angiotensin receptive marion, he is likely to maintain his potassium levels. His magnesium has also been acceptable. Nephrology is signing off. Please reconsult if needed
[2019-04-23 20:00] VITALS: BP 134/71
[2019-04-23] MEDS: RAMELTEON 8 MG TAB (ROZEREM) PO SCH (22:07)
[2019-04-24] VITALS: BP 108/57
[2019-04-24 04:00] VITALS: BP 117/51
[2019-04-24 05:20] LABS: BASO % 0.1 % (0.0-1.0); EOS # 0.1 10^3/uL (0.0-0.5); EOS % 0.4 % (0.0-3.0); HEMATOCRIT 36.8 % (42.0-52.0); HEMOGLOBIN 11.4 g/dl (13.5-17.5); LYMPH # 0.8 10^3/uL (1.5-5.0); LYMPH % 5.4 % (24.0-44.0); MEAN CORPUSCULAR HEMOGLOBIN 30.4 pg (27.0-33.0); MEAN CORPUSCULAR VOLUME 98.1 fl (80.0-96.0); MONO # 0.7 10^3/uL (0.0-0.8); NEUTROPHILS # 12.3 10^3/uL (1.5-8.5); NEUTROPHILS % 88.3 % (36.0-66.0); PLATELET COUNT, AUTOMATED 115 10^3/uL (150-450); RED BLOOD COUNT 3.75 10^6/uL (4.30-6.10); WHITE BLOOD COUNT 13.9 10^3/uL (4.0-10.0)
[2019-04-24] MEDS: SLF 3 ML SYR IV SCH ×3 (05:27→20:51)
[2019-04-24 05:37] LABS: BLOOD UREA NITROGEN 45 MG/DL (7-18); CALCIUM LEVEL 7.9 MG/DL (8.8-10.2); CARBON DIOXIDE LEVEL 33 MEQ/L (21-32); CHLORIDE LEVEL 106 MEQ/L (98-107); GLOMERULAR FILTRATION RATE > 60.0 (>42); GLUCOSE, FASTING 98 MG/DL (70-100); MAGNESIUM LEVEL 1.9 MG/DL (1.8-2.4); POTASSIUM SERUM 3.8 MEQ/L (3.5-5.1); SODIUM LEVEL 142 MEQ/L (136-145)
[2019-04-24] MEDS: BUDESONIDE 0.5 MG/2 ML INHALATION SUSPENSION INH SCH ×2 (07:34→20:15)
[2019-04-24] MEDS: LEVALBUTEROL 1.25 MG/0.5 ML CONCENTRATE NEB INH SCH ×3 (07:34→22:57)
[2019-04-24 08:00] VITALS: BP 101/51
--- NOTE | 2019-04-24 08:46 | IPN ---
DATE: 04/24/2019 Mr. Brown has been feeling good. He tells me that he has not felt this good for quite some time. He is more than ready to go home in his own words. The telemetry monitoring continues to reveal sinus rhythm but he continues to have episodes of ventricular ectopy that is frequent at times having runs of nonsustained ventricular tachycardia. Vital signs this morning 114/51, heart rate from 60s to 70s. He is afebrile. Saturation 100% on room air. His weight is 53.9 kg. He is alert and oriented and appropriate. His jugular venous pulse (JVP) is not high. Lungs are clear, but again. the air movement is only fair. I suspect that it is underlying severe chronic obstructive pulmonary disease (COPD). Heart exam reveals regular rhythm without obvious murmur or gallop. Abdomen is soft. Extremities are free of edema. LABORATORIES: Hemoglobin 11.4, hematocrit 36.8, and platelet count 115. Basic metabolic panel sodium 142, potassium 3.8, BUN is 45, creatinine 1.0, glucose 98. ASSESSMENT AND PLAN: Mr. Brown is a 73-year-old man who likely has severe chronic obstructive pulmonary disease but presented with shortness of breath, which likely was combination of COPD and congestive heart failure. An echocardiogram revealed severe LV systolic dysfunction. He was grossly volume overloaded and also had component of renal failure. With medical management he gradually improved. Currently, he is euvolemic and is already on high-dose Toprol XL, plus Entresto. He seems to be hemodynamically well-compensated. From my perspective, he can be discharged home. We ordered a LifeVest, but unfortunately it may potentially take several days if the insurance does not approve it. I personally would agree with his discharge if he cannot get the LifeVest today and will try to accomplish that on an outpatient basis. I spoke about this with the patient and with Dr. Wakefield.
[2019-04-24] MEDS ORDERED: FUROSEMIDE 20 MG TAB PO SCH (09:00)
[2019-04-24] MEDS: METOPROLOL SUCC (TopROL XL) 100MG *XL* TAB PO SCH (09:00)
[2019-04-24] MEDS: ENTRESTO 24-26MG TABLET (SACUBITRIL/VALSARTAN) PO SCH ×2 (09:00→20:52)
[2019-04-24] MEDS ORDERED: POTASSIUM CHLORIDE 10 MEQ SR TABLET PO SCH (09:00)
[2019-04-24] MEDS: SENOKOT S TAB PO SCH ×2 (09:41→20:50)
[2019-04-24] MEDS: DOXYCYCLINE HYCLATE 100 MG TAB PO SCH ×2 (09:41→20:50)
[2019-04-24] MEDS: APIXABAN 5 MG TAB (ELIQUIS) PO SCH (09:41)
[2019-04-24] MEDS: guaiFENesin ER 600 MG TAB PO SCH ×2 (09:41→20:51)
[2019-04-24] MEDS: NICOTINE 21MG/24HR 1 EA TRANSDERMAL TD SCH (09:42)
[2019-04-24] MEDS: NYSTATIN 500,000 U/5 ML SUSP UDC SS SCH ×3 (09:42→20:51)
--- NOTE | 2019-04-24 12:00 | IPNPDOC ---
Text Note Date of Service The patient was seen on 04/24/19. NOTE Subjective: No any acute events overnight. Patient developed black stool tested positive for occult blood Patient denies fever, chills, chest pain, palpitations, nausea, diarrhea or dysuria General: NAD HEENT: PERRLA, EOMI Lungs: CTA CV: S1-S2, RRR Abdomen: Nontender, nondistended Extremities: No clubbing, no cyanosis Neuro: Nonfocal Assessment and plan: Patient 73 years old male with past history of allergy, asthma presented hospital with acute CHF exacerbation, superimposed with COPD exacerbation/pneumonia Acute metabolic encephalopathy Resolved TARI Resolved Most likely secondary to cardiorenal syndrome Dental Office Assistant team follows him dc diuretics Metabolic alkalosis Resolved Secondary to aggressive diuresis Acute systolic CHF Ejection fraction around 20% superimposed with mitral and tricuspid regurgitation and acute kidney failure, most likely he develop CHF secondary to atrial fibrillation with rapid ventricular rate, he will need workup for ischemic cardiomyopathy in the outpatient settings Entresto started Spring Forger team recommended LifeVest on the discharge. Await authorization. I's and O's COPD/ emphysema exacerbation Improved I DC steroids due to metabolic encephalopathy Patient has increased congestion in his chest with cough, leukocytosis I restarted doxycycline 100 mg twice a day Pneumonia Patient completed the course of antibiotics Resolved Now we treat acute on chronic bronchitis Congestive hepatopathy Improved Secondary to hepatorenal syndrome Hypervolemic hyponatremia Secondary to cardiorenal syndrome Resolved Atrial fibrillation Heart rate is under control, converted to sinus rhythm. 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 with BMI of 18 Follow curator of photography and prints recommendation GI bleed Stool positive for occult blood Entrest on hold Appreciate/agree with GI consult Britton FLEMING, I+O VSBritton I+O Laboratory Tests 04/24/19 05:03 Vital Signs Date Time Temp Pulse Resp B/P (MAP) Pulse Ox O2 Delivery O2 Flow Rate FiO2 04/24/19 08:00 97.2 68 18 101/51 (68) 94 Room Air I&O- Last 24 Hours up to 6 AM 04/24/19 06:00 Intake Total 920 ml Output Total 600 ml Balance 320 ml MOLLY CONRAD DO Apr 24, 2019 12:00
[2019-04-24] MEDS: MAGNESIUM CHLORIDE 64 MG TABCR (SLO MAG) PO SCH (12:05)
[2019-04-24] MEDS ORDERED: DOXY100T PO (14:08)
[2019-04-24] MEDS ORDERED: ENTR1TAB PO (14:08)
[2019-04-24] MEDS ORDERED: ASPI81TAEC PO (14:08)
[2019-04-24] MEDS ORDERED: KLOR10TA76 PO (14:08)
[2019-04-24] MEDS ORDERED: METO1TAB33 PO (14:08)
[2019-04-24 16:00] VITALS: BP 108/52
--- NOTE | 2019-04-24 19:07 | CR ---
DATE OF CONSULTATION: 04/24/2019 STATUS OF THE PATIENT: Inpatient. CONSULTATION REPORT FOR: Hospitalist service. REASON FOR CONSULTATION: Melena, anemia. HISTORY OF PRESENT ILLNESS: Mr. Brown is a 73-year-old gentleman with chronic obstructive pulmonary disease (COPD), congestive heart failure who presents to the hospital with progressive shortness of breath. He was found to be in rapid atrial fibrillation, found to have biventricular heart failure, and he was started on anticoagulation for atrial fibrillation. He developed some dark black-appearing stools which tested hemoccult positive. Gastrointestinal (GI) consultation was requested to evaluate safety of anticoagulant therapy. Anticoagulation has been stopped in anticipation for possible endoscopy. During his hospital stay, the patient had extensive diuresis. He had an echocardiogram showing elevated central pressures although his right heart pressures were not severely elevated on this echocardiogram. Evaluations highly suggested that he has significant cor pulmonale as well. He has congestive hepatopathy in the form of abnormal liver enzymes. The patient at present feels quite comfortable. He has been diuresed and is ready to be discharged. He denies any abdominal pain. No nausea. No vomiting. No fevers or chills. He has never had any upper or lower endoscopies performed in the past. PAST MEDICAL HISTORY: Recent diagnosis including chronic obstructive pulmonary disease (COPD), congestive heart failure, atrial fibrillation. PAST SURGICAL HISTORY: Negative for any surgical history. ALLERGIES: No known drug allergies. FAMILY HISTORY: Unknown. SOCIAL HISTORY: Positive for tobacco. Negative for alcohol times 35 years. MEDICATIONS AT HOME: None. CURRENT MEDICATIONS: Include aspirin, Slow-Mag, Laura Ciel, nystatin oral rinse, metoprolol, Entresto, doxycycline, guaifenesin, budesonide, rozarem, Eliquis this is on hold, Nicoderm CQ patch, Senokot. REVIEW OF SYSTEMS: GENERAL: Positive for recent weakness and fatigue and dyspnea. PULMONARY: Positive for shortness of breath, dyspnea on exertion. Negative for hemoptysis or pleuritic-type chest pain. CARDIAC: Positive for orthopnea and dyspnea on exertion. GASTROINTESTINAL (GI): Negative for abdominal pain, nausea, vomiting or weight loss. Positive for constipation. MUSCULOSKELETAL: Negative for myalgias or arthralgias. SKIN: Negative for rashes or ulcerations. NEUROLOGICAL: Negative for numbness, weakness, slurred speech, double vision. PHYSICAL EXAMINATION: VITAL SIGNS: Temperature 98.3, pulse 85, respiratory rate 18, blood pressure 108/52, pulse oximetry 98% on room air. GENERAL: He is awake, alert and oriented times three, in no acute distress, comfortably in bed. He is nontoxic in appearance. HEAD, EYES, EARS, NOSE AND THROAT: Positive for oral thrush. NECK: Negative for lymphadenopathy or thyromegaly. I do not see significant jugular venous distension today. CHEST: Distant breath sounds. Negative for wheezing or crackles. ABDOMEN: Soft, nontender. Good bowel sounds. No masses palpable. I do not appreciate any ascites. There is no tenderness. EXTREMITIES: Negative for edema. Rectal examination has been deferred as per the patient's request. LABORATORY DATA: WBCs 13.9, hemoglobin 11.4, hematocrit 36.8, MCV 98.1%, RDW 16.8, platelet count is 115. BUN is 45, creatinine 1.0, total bilirubin 2.1, AST 105, ALT 605, alkaline phosphatase 156, albumin 2.8, total protein 5.7. Hepatitis A, B and C are negative. PT/INR 1.52. IMAGING STUDIES: CT chest angiogram dated 04/13/2019: Impression: 1. Mild centrilobular emphysema demonstrated in the mid and upper lung zones. 2. Nodular opacity anterior left lobe measures represent a semisolid nodule containing significant solid component versus a focus of peripheral airway disease. 3. Small bilateral pleural effusions. 4. Course parenchymal infiltrates demonstrated in the right upper lobe, both lower lobes with small patchy foci demonstrated in the lingular lobe and right middle lobe, findings may represent multifocal pneumonitis. 5. Anasarca. 6. There is diffuse mediastinal lymphadenopathy measuring up to 14 mm in the pretracheal retrocaval area, 14 mm in the azygoesophageal recess and 17 mm in the AP window. 7. There is fusiform dilation of the ascending thoracic aorta which measures 3.8 cm maximally. There is no saccular component. Lack of contrast in the aorta limits evaluation for dissection. Liver ultrasound 04/14/2019: Impression: 1. A 1 cm echogenic lesion in the left hepatic lobe, possibly reflecting a hemangioma. 2. Trace pericholecystic fluid without specific signs of acute cholecystitis. IMPRESSION: 1. Melena with mild anemia in the face of anticoagulation. 2. Congestive hepatopathy related to right heart failure, improving. 3. Abnormal liver functions with slightly depressed albumin, elevated international normalized ratio (INR), and decreased platelet count. This is most likely related to congestive hepatopathy. However, a degree of underlying liver disease cannot entirely be excluded based on a relatively normal ultrasound of the liver. RECOMMENDATIONS: 1. Esophagogastroduodenoscopy (EGD) to assess upper gastrointestinal (GI) tract to rule out a major potential bleeding source. 2. Depending on findings in the upper GI tract, a colonoscopy should also be performed at some point. We will decide if this needs to be done inpatient or can be delayed to outpatient status. 3. Would recommend a repeat liver enzyme evaluation to ensure continued improvement of the liver enzymes with diuresis and improvement of congestive hepatopathy. If these do not improve/resolve, further evaluations for liver disease may be indicated which we can followup as outpatient.
[2019-04-24 20:00] VITALS: BP 97/56
[2019-04-24] MEDS: RAMELTEON 8 MG TAB (ROZEREM) PO SCH (20:51)
[2019-04-25] VITALS (7 sets, daily range): BP systolic 100–135; BP diastolic 50–64
[2019-04-25 05:55] LABS: BASO % 0.1 % (0.0-1.0); EOS # 0.1 10^3/uL (0.0-0.5); EOS % 0.8 % (0.0-3.0); HEMATOCRIT 34.1 % (42.0-52.0); LYMPH # 0.7 10^3/uL (1.5-5.0); LYMPH % 6.1 % (24.0-44.0); MEAN CORPUSCULAR HEMOGLOBIN 31.3 pg (27.0-33.0); MEAN CORPUSCULAR HGB CONC 32.3 g/dl (32.0-36.5); MEAN CORPUSCULAR VOLUME 97.2 fl (80.0-96.0); MONO # 0.8 10^3/uL (0.0-0.8); MONO % 6.6 % (0.0-5.0); NEUTROPHILS # 9.9 10^3/uL (1.5-8.5); NEUTROPHILS % 85.9 % (36.0-66.0); PLATELET COUNT, AUTOMATED 105 10^3/uL (150-450); RED BLOOD COUNT 3.51 10^6/uL (4.30-6.10); WHITE BLOOD COUNT 11.6 10^3/uL (4.0-10.0)
[2019-04-25] MEDS: SLF 3 ML SYR IV SCH ×3 (06:00→21:13)
[2019-04-25 06:02] LABS: INR 1.44; PROTHROMBIN TIME 17.3 SECONDS (11.8-14.0)
[2019-04-25 06:16] LABS: ALBUMIN 2.3 GM/DL (3.2-5.2); BILIRUBIN,DIRECT 0.7 MG/DL (0.0-0.2); BILIRUBIN,TOTAL 1.8 MG/DL (0.2-1.0); MAGNESIUM LEVEL 1.9 MG/DL (1.8-2.4); TOTAL PROTEIN 4.9 GM/DL (6.4-8.2)
[2019-04-25] MEDS: LEVALBUTEROL 1.25 MG/0.5 ML CONCENTRATE NEB INH SCH (08:26)
[2019-04-25] MEDS: BUDESONIDE 0.5 MG/2 ML INHALATION SUSPENSION INH SCH (08:26)
[2019-04-25] MEDS ORDERED: LIDOCAINE 2% INJ 100 MG/5 ML SDV (FOR ANES.) As Ordered ONE (08:46)
[2019-04-25] MEDS ORDERED: propofoL 200 MG/20 ML VIAL As Ordered ONE (08:46)
[2019-04-25] MEDS ORDERED: KETAMINE HCL 200 MG/20 ML VIAL As Ordered ONE (09:29)
--- NOTE | 2019-04-25 10:23 | ROOR ---
Patient Name: Henok Brown Procedure Date: 04/25/2019 9:38 AM Date of : 1945 Age: 73 Gender: Male Note Status: Finalized Procedure: Upper GI endoscopy Indications: Acute post hemorrhagic anemia, Melena Providers: Joe QUIGLEY MD Referring MD: 2. Inpatient 2. Inpatient Requesting Provider: Medicines: Monitored Anesthesia Care Complications: No immediate complications. Procedure: Pre-Anesthesia Assessment: - The heart rate, respiratory rate, oxygen saturations, blood pressure, adequacy of pulmonary ventilation, and response to care were monitored throughout the procedure. The Endoscope was introduced through the mouth, and advanced to the third part of duodenum. The upper GI endoscopy was accomplished without difficulty. The patient tolerated the procedure well. Findings: Four non-obstructing non-bleeding cratered duodenal ulcers with pigmented material were found in the second portion of the duodenum. The largest lesion was 8 mm in largest dimension. There is no evidence of perforation. Scattered minimal inflammation was found in the gastric antrum. Biopsies were taken with a cold forceps for Helicobacter pylori testing. LA Grade B (one or more mucosal breaks greater than 5 mm, not extending between the tops of two mucosal folds) esophagitis with no bleeding was found at the gastroesophageal junction. Impression: - 4 non-bleeding duodenal ulcers with pigmented material. - Mild gastritis. Biopsied. - Mild to moderate reflux esophagitis. Recommendation: - Use Prilosec (omeprazole) 40 mg PO BID for 1 week then Use Prilosec (omeprazole) 40 mg PO daily. - Telephone endoscopist for pathology results in 2 weeks. - No ibuprofen, naproxen, or other non-steroidal anti-inflammatory drugs. (aspirin is OK, Tylenol is OK) Joe Quigley MD Joe QUIGLEY MD 04/25/2019 10:22:43 AM Electronically signed by Joe QUIGLEY MD Number of Addenda: 0 Note Initiated On: 04/25/2019 9:38 AM Estimated Blood Loss: Estimated blood loss: none.
[2019-04-25] MEDS ORDERED: LR 1,000 ML IV SCH (10:30)
[2019-04-25] MEDS ORDERED: ONDANSETRON 4MG/2ML VIAL (J2405) IV PRN (10:30)
[2019-04-25] MEDS: ASPIRIN 81 MG ENTERIC TAB PO SCH (11:11)
[2019-04-25] MEDS: OMEPRAZOLE 20 MG CAP PO SCH ×2 (11:11→21:12)
[2019-04-25] MEDS: DOXYCYCLINE HYCLATE 100 MG TAB PO SCH (11:11)
[2019-04-25] MEDS: NYSTATIN 500,000 U/5 ML SUSP UDC SS SCH ×3 (11:11→21:13)
[2019-04-25] MEDS: guaiFENesin ER 600 MG TAB PO SCH ×2 (11:11→21:12)
[2019-04-25] MEDS: METOPROLOL SUCC (TopROL XL) 100MG *XL* TAB PO SCH (11:12)
[2019-04-25] MEDS: SENOKOT S TAB PO SCH ×2 (11:12→21:12)
[2019-04-25] MEDS: NICOTINE 21MG/24HR 1 EA TRANSDERMAL TD SCH (11:12)
[2019-04-25] MEDS: ENTRESTO 24-26MG TABLET (SACUBITRIL/VALSARTAN) PO SCH ×2 (11:13→21:12)
[2019-04-25] MEDS: MAGNESIUM CHLORIDE 64 MG TABCR (SLO MAG) PO SCH (11:13)
--- NOTE | 2019-04-25 12:27 | IPNPDOC ---
Text Note Date of Service The patient was seen on 04/25/19. NOTE Subjective: No any acute events overnight. 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 Await authorization. I's and O's COPD/ emphysema exacerbation Resolved I DC steroids due to metabolic encephalopathy Patient has increased congestion in his chest with cough, leukocytosis I dc doxycycline 100 mg twice a day Pneumonia Patient completed the course of antibiotics Resolved Now we treat acute on chronic bronchitis Congestive hepatopathy Improved Secondary to hepatorenal syndrome Hypervolemic hyponatremia Secondary to cardiorenal syndrome Resolved Atrial fibrillation Heart rate is under control, converted to sinus rhythm. 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
[2019-04-25] MEDS: FLUCONAZOLE 50MG TABLET PO SCH (16:29)
[2019-04-25] MEDS: RAMELTEON 8 MG TAB (ROZEREM) PO SCH (21:12)
[2019-04-26] VITALS (8 sets, daily range): BP systolic 99–143; BP diastolic 51–64
[2019-04-26 05:30] LABS: BASO % 0.1 % (0.0-1.0); EOS # 0.1 10^3/uL (0.0-0.5); EOS % 0.9 % (0.0-3.0); HEMATOCRIT 33.5 % (42.0-52.0); HEMOGLOBIN 10.3 g/dl (13.5-17.5); LYMPH % 9.6 % (24.0-44.0); MEAN CORPUSCULAR HEMOGLOBIN 30.4 pg (27.0-33.0); MEAN CORPUSCULAR HGB CONC 30.7 g/dl (32.0-36.5); MEAN CORPUSCULAR VOLUME 98.8 fl (80.0-96.0); MONO # 0.8 10^3/uL (0.0-0.8); MONO % 7.2 % (0.0-5.0); NEUTROPHILS # 8.6 10^3/uL (1.5-8.5); NEUTROPHILS % 81.5 % (36.0-66.0); RED BLOOD COUNT 3.39 10^6/uL (4.30-6.10); WHITE BLOOD COUNT 10.6 10^3/uL (4.0-10.0)
[2019-04-26 05:35] LABS: PLATELET COUNT, AUTOMATED 97 10^3/uL (150-450)
[2019-04-26 05:54] LABS: ALBUMIN 2.2 GM/DL (3.2-5.2); ALT/SGPT 173 U/L (12-78); BILIRUBIN,TOTAL 1.8 MG/DL (0.2-1.0); BLOOD UREA NITROGEN 39 MG/DL (7-18); CALCIUM LEVEL 7.5 MG/DL (8.8-10.2); CARBON DIOXIDE LEVEL 29 MEQ/L (21-32); CHLORIDE LEVEL 110 MEQ/L (98-107); CREATININE FOR GFR 0.83 MG/DL (0.70-1.30); GLOMERULAR FILTRATION RATE > 60.0 (>42); GLUCOSE, FASTING 90 MG/DL (70-100); MAGNESIUM LEVEL 1.9 MG/DL (1.8-2.4); POTASSIUM SERUM 3.7 MEQ/L (3.5-5.1); SODIUM LEVEL 143 MEQ/L (136-145); TOTAL PROTEIN 4.9 GM/DL (6.4-8.2)
[2019-04-26] MEDS: SLF 3 ML SYR IV SCH ×3 (06:36→21:58)
--- NOTE | 2019-04-26 07:00 | IPN ---
DATE: 04/25/2019 Mr. Henok Brown was seen earlier this morning, he was laying supine in bed in no acute distress at rest. He had his upper GI endoscopy done earlier in the day and it revealed nonbleeding duodenal ulcers, the largest lesions were 8 mm in size. There was no evidence of perforation or active bleed. Biopsy was done and result is pending. It was recommended to him he may take the aspirin with a proton pump inhibitor (PPI), but no nonsteroidal anti-inflammatory drug (NSAID). There was no mention about anticoagulation therapy. He denies any chest pain or palpitations. He stated he is feeling good and ready to be home. He denies any dizziness. There is no orthopnea or paroxysmal nocturnal dyspnea (PND). He has no focal manifestation. PHYSICAL EXAMINATION: The patient is alert and oriented and in no acute distress at rest. His blood pressure when I saw him was 116/57 with a pulse of 74, respiration 18 and maximum temperature 97 degrees Fahrenheit with an oxygen saturation of 92% on room air. He had a negative fluid balance of 350 mL for 04/24/2019. Examination of the Head: Atraumatic. Neck is supple and no carotid bruits appreciated. Lungs did not reveal any wheezing or crackles. The heart examination revealed regular heart sounds without gallops. The point of maximal impulse (PMI) is displaced inferiorly and laterally. There is no rub. There is a systolic murmur grade 1-2/6 at the lower sternal border and at the apex with any significant radiation. Abdomen is unremarkable. Extremities have trace of edema. Neurologic examination is negative for focal deficit. LABORATORY DATA: CBC done today revealed a WBC of 11.6, hemoglobin 11.0, hematocrit 34.1 and platelet 105,000. BMP done 04/24/2019 revealed a sodium of 142, potassium 3.8, chloride 106, CO2 33, BUN 45, creatinine 1.0, GFR more than 60, fasting glucose 98, with a calcium of 7.9. Liver enzymes done today revealed a total bilirubin of 1.8, direct bilirubin of 0.7, AST 55, ALT 201 and alkaline phosphatase 91. Total protein was 4.9, with albumin of 2.3. Serum magnesium was 1.3. IMPRESSION: 1. Status post decompensated congestive heart failure secondary to left ventricular systolic dysfunction and now seems to be well-compensated on ENTRESTO and metoprolol succinate. The etiology is not quite clear and he will need further cardiac workup as outpatient. Currently awaiting for his discharge, but waiting for a LifeVest. His telemetry has revealed frequent premature ventricular contractions (PVCs) at times during this hospitalization. 2. Atrial fibrillation, paroxysmal in nature, and currently in normal sinus rhythm. He will continue the aspirin, and the beta marion. 3. Chronic obstructive pulmonary disease (COPD), status post exacerbation. No wheezing noted today on physical examination. He does have a long history of smoking. 4. Elevated liver function tests (LFTs) and they have improved significantly. This was probably related to his congestive heart failure (CHF). 5. Gastrointestinal (GI) bleed and anemia with positive stool guaiac. EGD as mentioned above. Colonoscopy to be done as outpatient. It was a pleasure to participate in the care of Mr. Henok Brown for his underlying cardiac condition. I will continue to monitor along with you while in the hospital. Hopefully, he will be able to be discharged home on 04/27/2019.
[2019-04-26] MEDS: ENTRESTO 24-26MG TABLET (SACUBITRIL/VALSARTAN) PO SCH ×2 (09:00→21:57)
[2019-04-26] MEDS: METOPROLOL SUCC (TopROL XL) 100MG *XL* TAB PO SCH (09:00)
[2019-04-26] MEDS: ASPIRIN 81 MG ENTERIC TAB PO SCH (10:09)
[2019-04-26] MEDS: FLUCONAZOLE 50MG TABLET PO SCH (10:09)
[2019-04-26] MEDS: guaiFENesin ER 600 MG TAB PO SCH ×2 (10:10→21:57)
[2019-04-26] MEDS: OMEPRAZOLE 20 MG CAP PO SCH ×2 (10:10→21:56)
[2019-04-26] MEDS: NYSTATIN 500,000 U/5 ML SUSP UDC SS SCH ×3 (10:10→21:55)
[2019-04-26] MEDS: SENOKOT S TAB PO SCH ×2 (10:10→21:57)
[2019-04-26] MEDS: NICOTINE 21MG/24HR 1 EA TRANSDERMAL TD SCH (10:11)
--- NOTE | 2019-04-26 12:56 | IPNPDOC ---
Text Note Date of Service The patient was seen on 04/26/19. NOTE Subjective: No any acute events overnight. Patient denies fever, chills, chest pain, palpitations, nausea, diarrhea or dysuria General: NAD HEENT: PERRLA, EOMI Lungs: CTA CV: S1-S2, RRR Abdomen: Nontender, nondistended Extremities: No clubbing, no cyanosis Neuro: Nonfocal Assessment and plan: Patient 73 years old male with past history of allergy, asthma [facility] with acute CHF exacerbation, superimposed with COPD exacerbation/pneumonia. During hospital stay patient was found to have atrial fibrillation with rapid ventricular rate, he developed acute systolic CHF with ejection fraction 20%. Manager Body team recommended LifeVest on the discharge. Await authorization. Completed antibiotic therapy for pneumonia. Currently on sinus rhythm. Also patient was found to have stool positive for occult blood. EGD shows nonbleeding duodenal ulcers, the largest lesions were 8 mm in size. There was no evidence of perforation or active bleed. Biopsy was done and result is pending. Dr Quigley recommended to restart anticoagulation in one week. 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 Await authorization. I's and O's COPD/ emphysema exacerbation Resolved I DC steroids due to metabolic encephalopathy Pneumonia Patient completed the course of antibiotics Resolved Congestive hepatopathy Improved Secondary to hepatorenal syndrome Hypervolemic hyponatremia Secondary to cardiorenal syndrome Resolved Atrial fibrillation Heart rate is under control, converted to sinus rhythm. 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 There was no evidence of perforation or active bleed. Biopsy was done and result is pending. Oral cavity soreness Most likely secondary to fungal infection secondary to steroids Diflucan Nystatin mouthwash VS,Fishbone, I+O VS, Fishbone, I+O Laboratory Tests 04/26/19 05:09 Vital Signs Date Time Temp Pulse Resp B/P (MAP) Pulse Ox O2 Delivery O2 Flow Rate FiO2 04/26/19 08:00 98.0 73 18 99/57 (71) 95 Room Air I&O- Last 24 Hours up to 6 AM 04/26/19 05:59 Intake Total 1725 ml Output Total 750 ml Balance 975 ml MOLLY CONRAD DO Apr 26, 2019 12:56
[2019-04-26] MEDS: MAGNESIUM CHLORIDE 64 MG TABCR (SLO MAG) PO SCH (13:05)
--- NOTE | 2019-04-26 13:25 | IPN ---
DATE: 04/26/2019 Mr. Henok Brown was seen earlier this morning. He was sitting in his chair and having breakfast. He denies any cardiac complaints of chest pain, shortness of breath, palpitations, orthopnea, pedal edema, dizziness or lightheadedness. He does have some soreness in his throat and oral cavity. This is being addressed by his hospitalist and according to the , it was thought it could be related to the antibiotics he was taking. There is no active bleeding. He stated that the stools have been back to normal color. He had his esophagogastroduodenoscopy (EGD) done yesterday and non-bleeding duodenal ulcers were noted. Biopsy is pending. He is now on high dose proton pump inhibitor (PPI). PHYSICAL EXAMINATION: The patient is alert and oriented, in no acute distress at rest and very pleasant. His most recent blood pressure was 99/57 with a pulse of 73, respiration 18, and his maximum temperature was 98.1 degrees Fahrenheit with an oxygen saturation of 95% on room air. Examination of the Head: Atraumatic. Neck is supple and no carotid bruits are appreciated. The lungs did not reveal any wheezing or crackles. Heart examination revealed irregular heart sounds without gallops. The point of maximal impulse (PMI) is slightly displaced inferiorly. There is no rub. Abdomen is unremarkable. Extremities reveal no focal edema. Neurological examination is negative for focal deficit. LABORATORY DATA: BMP done today revealed a sodium of 143, potassium 3.7, chloride 110, CO2 29, BUN 39, creatinine 0.83, GFR more than 60, fasting glucose 90, calcium 7.5. Serum magnesium is 1.9. Liver enzymes revealed a total bilirubin of 1.8, AST 50, ALT 173, alkaline phosphatase 88, albumin 2.2. CBC done today revealed a WBC of 10.6, hemoglobin 10.3, hematocrit 33.5 and platelets 97,000. Telemetry were reviewed and revealed normal sinus rhythm with isolated PVCs and occasional couplets. IMPRESSION: 1. Status post decompensated congestive failure secondary to left ventricular systolic dysfunction, severe. 2. Paroxysmal atrial fibrillation. 3. History of hypertension. 4. History of smoking. 5. Status post acute kidney injury. 6. Status post abnormal LFTs, resolving. 7. Anemia, positive stool guaiac. Positive EGD for duodenal ulcers but non-bleeding. 8. Thrombocytopenia. Mr. Henok Brown is stable from a cardiac point of view and will continue with the ENTRESTO and long acting beta marion. Currently, there is no need for diuretics, he is not retaining fluids and his lungs are clear. He is awaiting to be discharged home on the LifeVest because his telemetry continued to show isolated PVCs and some in couplets. Hopefully, he will have it tomorrow and he can be discharged home. He has not been in atrial fibrillation. He will continue with the long acting beta marion/metoprolol succinate and the aspirin for now. His liver enzymes have improved significantly, same for his kidney function. I am concerned about now his thrombocytopenia and he will need to be monitored. If he is discharged home tomorrow, I will see in the office in 7-10 days and this was discussed with him and the . It was a pleasure to participate the care of Mr. Henok Brown for his underlying cardiac condition. Please do not hesitate to call if any questions. Not mentioned above, he also will need to follow with GI. Further cardiac workup will be done as outpatient.
[2019-04-26] MEDS ORDERED: POTASSIUM CHLORIDE 10 MEQ SR TABLET PO ONE (17:30)
[2019-04-26] MEDS ORDERED: AMIODARONE 200 MG TAB (PACERONE) PO ONE ×2 (18:00→20:00)
[2019-04-26] MEDS ORDERED: AMIODARONE HCL 150 MG in IV 1 EA IV ONE (18:00)
[2019-04-26 18:06] LABS: MAGNESIUM LEVEL 1.8 MG/DL (1.8-2.4); POTASSIUM SERUM 3.8 MEQ/L (3.5-5.1)
[2019-04-26] MEDS: RAMELTEON 8 MG TAB (ROZEREM) PO SCH (21:56)
--- NOTE | 2019-04-26 23:32 | ECGEPIP ---
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 MOST RECENT TRACING ON 04/18/2019 REVEALED ATRIAL FIBRILLATION AND ISOLATED PVCS Electronically Signed on 04-26-2019 23:32:01 EST by Orville Manning
[2019-04-27] VITALS: BP 91/56
[2019-04-27 04:00] VITALS: BP 92/54
[2019-04-27 05:40] LABS: BASO % 0.1 % (0.0-1.0); EOS # 0.1 10^3/uL (0.0-0.5); EOS % 1.1 % (0.0-3.0); HEMATOCRIT 32.8 % (42.0-52.0); HEMOGLOBIN 10.2 g/dl (13.5-17.5); LYMPH # 0.8 10^3/uL (1.5-5.0); LYMPH % 9.4 % (24.0-44.0); MEAN CORPUSCULAR HEMOGLOBIN 30.7 pg (27.0-33.0); MEAN CORPUSCULAR HGB CONC 31.1 g/dl (32.0-36.5); MEAN CORPUSCULAR VOLUME 98.8 fl (80.0-96.0); MONO # 0.6 10^3/uL (0.0-0.8); MONO % 7.7 % (0.0-5.0); NEUTROPHILS # 6.7 10^3/uL (1.5-8.5); NEUTROPHILS % 81.3 % (36.0-66.0); RED BLOOD COUNT 3.32 10^6/uL (4.30-6.10); WHITE BLOOD COUNT 8.3 10^3/uL (4.0-10.0)
[2019-04-27 05:47] LABS: PLATELET COUNT, AUTOMATED 87 10^3/uL (150-450)
[2019-04-27] MEDS: SLF 3 ML SYR IV SCH ×3 (06:05→20:32)
[2019-04-27 06:10] LABS: ALBUMIN 2.3 GM/DL (3.2-5.2); ALT/SGPT 146 U/L (12-78); BILIRUBIN,TOTAL 1.3 MG/DL (0.2-1.0); BLOOD UREA NITROGEN 36 MG/DL (7-18); CALCIUM LEVEL 8.2 MG/DL (8.8-10.2); CARBON DIOXIDE LEVEL 27 MEQ/L (21-32); CHLORIDE LEVEL 110 MEQ/L (98-107); CREATININE FOR GFR 0.77 MG/DL (0.70-1.30); GLOMERULAR FILTRATION RATE > 60.0 (>42); GLUCOSE, FASTING 90 MG/DL (70-100); MAGNESIUM LEVEL 1.9 MG/DL (1.8-2.4); POTASSIUM SERUM 3.6 MEQ/L (3.5-5.1); SODIUM LEVEL 140 MEQ/L (136-145); TOTAL PROTEIN 5.1 GM/DL (6.4-8.2)
[2019-04-27] MEDS ORDERED: DIFL50TA PO (07:36)
[2019-04-27] MEDS ORDERED: MAGN64TASA PO (07:36)
[2019-04-27] MEDS ORDERED: METO1TAB7 PO (07:36)
[2019-04-27] MEDS ORDERED: NICO21PAT TD (07:36)
[2019-04-27] MEDS ORDERED: MUCI600T31 PO (07:36)
[2019-04-27] MEDS ORDERED: OMEP40CA97 PO (07:36)
[2019-04-27] MEDS ORDERED: NYST50SS SS (07:36)
[2019-04-27] MEDS ORDERED: AMIO200T PO (07:36)
[2019-04-27 08:00] VITALS: BP 98/51
[2019-04-27] MEDS ORDERED: POTASSIUM CHLORIDE 10 MEQ SR TABLET PO ONE (09:00)
[2019-04-27] MEDS ORDERED: MAG SULF 1GM/100ML (MAG RUN) 1 GM in IV 1 EA IV ONE (09:00)
[2019-04-27] MEDS: METOPROLOL SUCC (TopROL XL) 50MG **XL** TAB PO SCH (09:00)
[2019-04-27] MEDS: ASPIRIN 81 MG ENTERIC TAB PO SCH (10:09)
[2019-04-27] MEDS: AMIODARONE 200 MG TAB (PACERONE) PO SCH ×2 (10:09→20:31)
[2019-04-27] MEDS: OMEPRAZOLE 20 MG CAP PO SCH ×2 (10:09→20:30)
[2019-04-27] MEDS: guaiFENesin ER 600 MG TAB PO SCH ×2 (10:10→20:31)
[2019-04-27] MEDS: SENOKOT S TAB PO SCH ×2 (10:10→20:32)
[2019-04-27] MEDS: FLUCONAZOLE 50MG TABLET PO SCH (10:11)
[2019-04-27] MEDS: NICOTINE 21MG/24HR 1 EA TRANSDERMAL TD SCH (10:12)
[2019-04-27] MEDS: NYSTATIN 500,000 U/5 ML SUSP UDC SS SCH ×3 (10:12→20:31)
[2019-04-27] MEDS: MAGIC MOUTHWASH SUSPENSION BTL SS PRN ×3 (10:14→20:35)
--- NOTE | 2019-04-27 11:01 | IPN ---
DATE: 04/27/[address] Merrill, the patient is medically stable for discharge today. He is awaiting his defibrillator vest. He denies any chest pain, pressure, tightness, shortness of breath. He says that he lives with his and ambulated well from the bathroom. He has not seen physical therapy (PT) yet this morning. The patient is currently not on any diuretics. His heart rate remains stable, 68 to 87, atrial fibrillation, irregular. Blood pressure this morning is 92/54, currently on metoprolol 50 mg daily. The patient is off of the anticoagulation due to possible gastrointestinal bleed. He will followup with GI as an outpatient. VITAL SIGNS: Temperature 98.2, pulse 79, respiratory rate 16, blood pressure 92/54, 95% on room air. GENERAL: Awake, alert, oriented times three. Answering questions appropriately. The patient has no jugular venous distention (JVD) or thyromegaly. No cervical lymphadenopathy. Moist mucous membranes. LUNGS: Diminished but clear to auscultation. No wheezing or rales. HEART: S1, S2. Irregularly irregular. ABDOMEN: Soft, nontender. Scaphoid abdomen. EXTREMITIES: No pitting edema. LABORATORY DATA: White count 8, hemoglobin 10, hematocrit 32, platelet count 87. Sodium 140, potassium 3.6, chloride 110, bicarbonate 27, BUN 36, creatinine 0.77, glucose 90, total bilirubin 1.3, magnesium 1.9. ASSESSMENT AND PLAN: This is a 73-year-old male with a history of congestive heart failure (CHF) with depressed ejection fraction, awaiting defibrillator vest. Per Dr. Manning, tdp displays analyst, the patient will continue on Entresto, long-acting beta blockade. No need for any diuretics, as he was not getting any fluids. He is to be discharged home on the life vest. Due to persistent premature ventricular contractions (PVCs), electrolyte abnormalities have been corrected. Chronic thrombocytopenia, no active signs of bleeding. Probable gastrointestinal bleed. The patient is off anticoagulation. Followup with Dr. Quigley as an outpatient. Chronic kidney disease stage III. Currently with stable creatinine at 0.77. Pneumonia. Completed a full course of antibiotics. Congested hepatopathy with improved bilirubin. Atrial fibrillation. Currently rate controlled, still irregular. On metoprolol 50 mg daily and amiodarone. Electrolyte abnormalities. The patient has been repleted. Cachexia with bitemporal wasting. Body Mass Index (BMI) is 17. Health Information Assistant recommendation. Fungal infection in the mouth. Currently nystatin and Diflucan. DISPOSITION: May be discharged home once Live Vest has been delivered. MTDD
[2019-04-27 12:00] VITALS: BP 115/67
[2019-04-27] MEDS: MAGNESIUM CHLORIDE 64 MG TABCR (SLO MAG) PO SCH (12:25)
[2019-04-27 16:00] VITALS: BP 108/58
[2019-04-27 20:00] VITALS: BP 109/59
[2019-04-27] MEDS: ENTRESTO 24-26MG TABLET (SACUBITRIL/VALSARTAN) PO SCH (20:31)
[2019-04-27] MEDS: RAMELTEON 8 MG TAB (ROZEREM) PO SCH ×2 (20:31→20:42)
[2019-04-28] VITALS: BP 104/51
[2019-04-28 04:00] VITALS: BP 99/49
[2019-04-28] MEDS: SLF 3 ML SYR IV SCH ×2 (05:23→12:22)
[2019-04-28 05:54] LABS: BASO % 0.1 % (0.0-1.0); EOS # 0.1 10^3/uL (0.0-0.5); EOS % 0.9 % (0.0-3.0); HEMATOCRIT 31.1 % (42.0-52.0); HEMOGLOBIN 9.8 g/dl (13.5-17.5); LYMPH # 0.9 10^3/uL (1.5-5.0); MEAN CORPUSCULAR HGB CONC 31.5 g/dl (32.0-36.5); MEAN CORPUSCULAR VOLUME 98.4 fl (80.0-96.0); MONO # 0.6 10^3/uL (0.0-0.8); MONO % 7.4 % (0.0-5.0); NEUTROPHILS # 6.1 10^3/uL (1.5-8.5); NEUTROPHILS % 79.5 % (36.0-66.0); PLATELET COUNT, AUTOMATED 83 10^3/uL (150-450); RED BLOOD COUNT 3.16 10^6/uL (4.30-6.10); WHITE BLOOD COUNT 7.7 10^3/uL (4.0-10.0)
[2019-04-28 06:16] LABS: ALBUMIN 2.2 GM/DL (3.2-5.2); ALT/SGPT 126 U/L (12-78); BILIRUBIN,TOTAL 1.2 MG/DL (0.2-1.0); BLOOD UREA NITROGEN 31 MG/DL (7-18); CALCIUM LEVEL 7.4 MG/DL (8.8-10.2); CARBON DIOXIDE LEVEL 27 MEQ/L (21-32); CHLORIDE LEVEL 110 MEQ/L (98-107); CREATININE FOR GFR 0.71 MG/DL (0.70-1.30); GLOMERULAR FILTRATION RATE > 60.0 (>42); GLUCOSE, FASTING 90 MG/DL (70-100); MAGNESIUM LEVEL 2.2 MG/DL (1.8-2.4); SODIUM LEVEL 142 MEQ/L (136-145); TOTAL PROTEIN 5.2 GM/DL (6.4-8.2)
[2019-04-28 08:00] VITALS: BP 111/56
[2019-04-28] MEDS: OMEPRAZOLE 20 MG CAP PO SCH (08:15)
[2019-04-28] MEDS: SENOKOT S TAB PO SCH (08:15)
[2019-04-28] MEDS: ASPIRIN 81 MG ENTERIC TAB PO SCH (08:15)
[2019-04-28 08:17] VITALS: BP 111/56
[2019-04-28] MEDS: AMIODARONE 200 MG TAB (PACERONE) PO SCH (08:17)
[2019-04-28] MEDS: guaiFENesin ER 600 MG TAB PO SCH (08:17)
[2019-04-28] MEDS: METOPROLOL SUCC (TopROL XL) 50MG **XL** TAB PO SCH (08:17)
[2019-04-28] MEDS: NICOTINE 21MG/24HR 1 EA TRANSDERMAL TD SCH (08:18)
[2019-04-28] MEDS: FLUCONAZOLE 50MG TABLET PO SCH (08:18)
[2019-04-28] MEDS: NYSTATIN 500,000 U/5 ML SUSP UDC SS SCH ×2 (08:18→16:24)
--- NOTE | 2019-04-28 08:43 | IPN ---
DATE: 04/28/2019 Patient is lying supine around 20 degrees at the bedside with two pillows. He has no paroxysmal nocturnal dyspnea (PND), orthopnea or shortness of breath (SOB), dyspnea on exertion. The patient could not be discharged yesterday as he was still waiting for his LifeVest to be approved by his insurance. He otherwise denies any cough, chest pain, pressure or tightness, lightheadedness, or dizziness. The patient is ambulating well, tolerating his diet. No nausea, vomiting, epigastric pain, dysuria, urgency or frequency, fever, chills, flank pain, bright red blood per rectum, melena, black tarry stools. Temperature 98.1, pulse 74, respiratory rate 18, blood pressure 99/49, 97% on room air. Generally, patient is awake, alert, oriented times three. Answering questions appropriately. No jugular venous distention (JVD). No thyromegaly. No cervical lymphadenopathy. Dry mucous membranes. Lungs are clear to auscultation. Fine crackles at the bases. Heart S1, S2, irregular. Abdomen is soft, nontender, nondistended. Extremities have no pitting edema. LABORATORY DATA: White count 7.7, hemoglobin 9.8, hematocrit 31, platelet count 83. Previous platelet count on admission was 196. No signs of bleeding. Heparin induced antibody assay is pending. Sodium 142, potassium 4, chloride 110, bicarbonate 27, BUN 31, creatinine 0.7, glucose 90, total bilirubin 1.2, AST 40, ALT 126. ASSESSMENT AND PLAN: This is a 73-year-old male with a history of congestive heart failure (CHF) with depressed ejection fraction, awaiting defibrillator vest. Per Dr. Manning, top inventory control executive, the patient will continue on Entresto, long-acting beta blockade. No need for any diuretics, as he was not getting any fluids. He is to be discharged home with a LifeVest due to persistent premature ventricular contractions (PVCs), electrolytes were corrected yesterday. IMPRESSION: 1. CHF with depressed ejection fraction. Awaiting defibrillator vest. Unable to discharge without this vest. Continue on Entresto, beta-blockade. No diuretics for now. Outpatient followup in seven days with top inventory control executive. 2. Chronic thrombocytopenia, no active signs of bleeding. Check HIT. 3. Gastrointestinal bleed, off anticoagulation. Only on aspirin, followup with Dr. Quigley as an outpatient. 4. Chronic kidney disease stage III. At baseline creatinine. 5. Pneumonia. Completed a full course of antibiotics. 6. Congested hepatopathy with improved bilirubin. No complaints of abdominal fullness, nausea or vomiting. Tolerating his diet well. 7. Cachexia with bitemporal wasting. Severe protein calorie malnutrition with BMI of 17. Dressing Room Attendant has been consulted. 8. Fungal infection. Oral fungal infection currently on nystatin and Diflucan. 9. Atrial fibrillation. Rate controlled, still irregular on metoprolol and amiodarone. 10. Frequent PVCs. Electrolytes have been optimized to keep potassium at 4 and higher and magnesium greater than 2. DISPOSITION: Await LifeVest approval from insurance company. May discharge anytime. He is medically stable currently. [facility]
[2019-04-28] MEDS: MAGNESIUM CHLORIDE 64 MG TABCR (SLO MAG) PO SCH (12:19)
[2019-04-28] MEDS: MAGIC MOUTHWASH SUSPENSION BTL SS PRN (12:21)
[2019-04-28 14:00] VITALS: BP 118/56
--- NOTE | 2019-04-28 18:35 | DSES ---
DATE OF ADMISSION: 04/13/2019 DATE OF DISCHARGE: 04/28/2019 CONSULTANTS DURING THIS ADMISSION: - Public Administration Professor, Dr. Addison Billingsley - Director Patient, Dr. Joe Quigley - Public Administration Professor, Dr. Orville Manning - Loan Representative, Dr. Jonathon Adams - Loan Representative, Dr. Destini Carter PRIMARY DISCHARGE DIAGNOSES: Chronic kidney disease, stage III, with acute kidney injury. Systolic congestive heart failure, decompensated. Hypokalemia due to over diuresis. Chronic obstructive pulmonary disease (COPD) exacerbation. 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 Four nonbleeding duodenal ulcers. Mild gastritis. Mild to moderate reflux esophagitis. Repeat CT chest to further monitor patient's nodule found incidentally within 3 months of hospital discharge. DISCHARGE MEDICATIONS: - amiodarone 200 mg twice a day - aspirin 81 mg daily - Diflucan 150 mg daily - Mucinex 1200 mg twice a day - magnesium chloride 64 mg daily - metoprolol 50 mg daily - nicotine patch one patch daily - nystatin 5 mL three times a day - Prilosec 40 mg twice a day - Entresto 24-26 mg one tablet by mouth twice a day DISCHARGE INSTRUCTIONS: The patient is to have a LifeVest defibrillator vest prior to leaving the hospital. He is to follow with Dr. Orville Manning as an outpatient within 5-7 days of hospital discharge. He is to continue a 1.5 liter fluid restriction, daily weights, and strict intake and output. He is to call Dr. Adams or Dr. Manning regarding more than 2-pound weight gain. Followup with Dr. Quigley within 1-2 weeks of hospital discharge. HOSPITAL COURSE: This is a 73-year-old male with a history of tachycardia- induced cardiomyopathy with systolic ejection fraction of 10-20% and with severe diffuse global hypokinesis, trace pericardial effusion, new onset atrial fibrillation, presented to the emergency room with worsening shortness of breath over the past few weeks. Patient had been seen at urgent care due to progressive shortness of breath, cough productive of white sputum, and admitted on 04/13/2019 for congestive heart failure (CHF). CT chest on 04/13/2019 showed anasarca, mild centrilobular emphysema, left upper lobe nodule that is semisolid, containing significant solid component versus focus of peripheral airway disease. Bilateral pleural effusion and patchy foci in the lingular lobe and right middle lobe, representing multifocal pneumonitis. Patient had diffuse mediastinal lymphadenopathy in azygoesophageal recess, fusiform dilation of the ascending aorta with no saccular component. Patient was initially treated for COPD exacerbation and was given IV Solu-Medrol 125 mg intravenously and diuresed with intravenous Lasix 40 mg. He was given a nicotine patch due to active smoking history. Hospitalist admitted and kept him on strict intake and output, fluid restriction, daily weights. Echocardiogram performed showed ejection fraction of 10-20%. He was kept on Lasix diuresis at 40 mg IV every 6 hours and changed to azithromycin and Zosyn along with prednisone 40 mg IV every 8 hours for presumed pneumonitis. He was kept on breathing nebulizer treatments. On 04/15/2019, the patient developed new onset atrial fibrillation, was treated with 5 mg of metoprolol every 6 hours times two doses with no improvement and was given 25 mg of oral metoprolol. Due to low blood pressure, patient was given IV digoxin on 04/15/2019. Despite these measures, he continued to have uncontrolled rate and was given intravenous amiodarone and subsequently oral amiodarone. Due to significant diuresis, patient developed acute kidney injury, presenting creatinine was 1.33, peak creatinine of 2.09. Nephrology was then subsequently consulted for management of chronic kidney disease, now at stage IV with fluid overload from congestive heart failure. Patient's admission weight was 75.1 kg with a discharge weight of 52.2 kg. Creatinine improved to 0.71 on the day of discharge. He did have abnormal liver function tests, which were thought to be hepatic congestion due to severe heart failure. Liver ultrasound on 04/14/2019 showed hemangioma and trace pericholecystic fluid without specific signs of acute cholecystitis. Renal ultrasound 04/19/2019 showed normal cortical echogenicity. Renal size, cortical thickness generally preserved. Echogenic renal vessels bilateral but no hydronephrosis, hydroureter, solid mass, cyst or perinephric fluid. Bladder only partially filled. Patient had no fluid reaccumulation. Diuresis was discontinued, and patient was not placed on standing dose of Lasix. He did develop some oral thrush and was given Diflucan along with Nystatin swish and swallow, swish and spit. Due to active tobacco use, he was kept on a nicotine patch. The patient was stable on hospital discharge and cleared by his astronomy professor to followup as an outpatient once the defibrillator vest has been delivered. The patient was seen by phys asst, Dr. Quigley, due to significant anemia and heme positive stool. His hemoglobin remained stable with hemoglobin of 13 to discharge of 9.8. He did not require any red blood cell transfusion. He underwent an esophagogastroduodenoscopy (EGD) on 04/25/2019, which showed mild gastritis, four nonbleeding duodenal ulcers with pigmented material and mild to moderate reflux esophagitis. Patient was kept on Prilosec 40 mg daily and to followup with Dr. Quigley as an outpatient within a week of discharge. The patient was instructed not to take any anticoagulation, no ibuprofen, Naprosyn or other nonsteroidal anti-inflammatory medications. He was kept on aspirin only for his atrial fibrillation. PHYSICAL EXAM ON DISCHARGE: Temperature 98.1, pulse 74, respiratory rate 18, blood pressure 99/49, 97% on room air. Repeat blood pressure is 118/56, 100% on room air. Generally, awake, alert, oriented times three. No jugular venous distention (JVD). No thyromegaly. No cervical lymphadenopathy. Dry mucous membranes. Lungs are clear to auscultation. Fine crackles at the bases. Heart: S1, S2, irregularly irregular. Abdomen is soft, nontender, nondistended. Positive bowel sounds times four quadrants. No rebound or guarding. Extremities: No pitting edema. LABORATORY DATA: White count 7.7, hemoglobin 9.8, hematocrit 31, platelet count 83, previous platelet count on admission was 196. Heparin-induced antibody is pending. Sodium 142, potassium 4, chloride 110, bicarbonate 27, BUN 31, creatinine 0.7, glucose 90, total bilirubin 1.2, AST 40, ALT 126, alkaline phosphatase 85, total protein 5.2, albumin of 2.2. Microbiology: Hemoccult stool 04/23/2019 positive. IMAGING STUDIES: Renal ultrasound: No hydronephrosis, hydroureter. Renal size, cortical thickness are preserved. Echogenic renal vessels bilaterally with no hydronephrosis, hydroureter, masses, or perinephric fluid. CT chest: Nodular opacity in the left upper lobe. Followup imaging test in 1 month recommended due to lack of contrast. Patient also has ascending thoracic aorta which measures 3.8 cm maximally, mediastinal lymphadenopathy measuring 14 mm. TIME SPENT ON DISCHARGE: 30 minutes. MTDD
[2019-05-02] MEDS ORDERED: OMEPRAZOLE 20 MG CAP PO SCH (09:00)
== END 2019-04-28 17:43 | disposition home health service (06) | DRG 291 ==
LOC: M ED 16:45 → M ED INP 21:52 → ENRESERVDT 04-14 13:16 → ENRESERVTM 04-14 13:16 → M ICU 04-14 14:12 → M PCU 04-15 17:54
PROVIDERS: ADMIT Internal Medicine; ATTEND Internal Medicine
PROC: 0DB78ZX Excision of Stomach, Pylorus, Via Natural or Artificial Opening Endoscopic, Diagnostic (ICD-10-PCS; principal; 2019-04-25 09:30)
DX: I13.0 Hypertensive heart and chronic kidney disease with heart failure and stage 1 through stage 4 chronic kidney disease, or unspecified chronic kidney disease (principal); J18.9 Pneumonia, unspecified organism; I50.23 Acute on chronic systolic (congestive) heart failure; G93.41 Metabolic encephalopathy; K76.7 Hepatorenal syndrome; N17.9 Acute kidney failure, unspecified; J44.1 Chronic obstructive pulmonary disease with (acute) exacerbation; E87.1 Hypo-osmolality and hyponatremia; J90 Pleural effusion, not elsewhere classified; I47.2 Ventricular tachycardia; K92.1 Melena; E87.3 Alkalosis; R64 Cachexia; B49 Unspecified mycosis; N18.2 Chronic kidney disease, stage 2 (mild); K29.70 Gastritis, unspecified, without bleeding; I42.8 Other cardiomyopathies; I48.91 Unspecified atrial fibrillation; K26.9 Duodenal ulcer, unspecified as acute or chronic, without hemorrhage or perforation; K21.0 Gastro-esophageal reflux disease with esophagitis; Z79.51 Long term (current) use of inhaled steroids; F17.200 Nicotine dependence, unspecified, uncomplicated; E87.5 Hyperkalemia; R91.8 Other nonspecific abnormal finding of lung field; I27.81 Cor pulmonale (chronic); I08.1 Rheumatic disorders of both mitral and tricuspid valves; N14.1 Nephropathy induced by other drugs, medicaments and biological substances; D72.829 Elevated white blood cell count, unspecified; D50.0 Iron deficiency anemia secondary to blood loss (chronic)

== ENCOUNTER → 2019-09-02 | Outpatient (REF) | payer MEDICARE ==
[~2019-09-02] MED LIST: ALBU8.5H INH; AMIO200T PO; ASPI81TAEC PO; CEFU1TAB22; DIFL50TA PO; DOXY100T PO; ELIQ5TAB PO; ENTR1TAB PO; KLOR10TA76 PO; MAGN64TASA PO; METO1TAB33 PO; METO1TAB7 PO; MUCI600T31 PO; NICO21PAT TD; NYST50SS SS; OMEP40CA97 PO; PRED20TA
[2019-09-02 14:40] LABS: CALCIUM LEVEL 9.7 MG/DL (8.8-10.2); CREATININE FOR GFR 1.31 MG/DL (0.70-1.30); GLOMERULAR FILTRATION RATE 57.1 (>42); POTASSIUM SERUM 5.1 MEQ/L (3.5-5.1)
== END ==
LOC: M SFHCPLAZ 12:42
PROVIDERS: ATTEND Student in an Organized Health Care Education/Training Program
DX: R91.1 Solitary pulmonary nodule (principal)

== ENCOUNTER → 2019-09-08 | Outpatient (CLI) | payer MEDICARE ==
[~2019-09-08] MED LIST changes: +ISOVUE-370 76% 100ML VIAL As Ordered ONE
--- NOTE | 2019-09-08 16:17 | REP ---
CT CHEST WITH IV CONTRAST: HISTORY: Lung nodules. CT CONTRAST DOSE: 75 mL of intravenous Isovue 370. Comparison chest x-ray, April 19, 2019. Comparison chest CT study, April 13, 2019. CT FINDINGS: Digital preliminary ski patroller radiograph shows cardiac enlargement and aortic tortuosity and calcification. Emphysematous changes are noted throughout the lung mckinley, particularly in the upper lobes. Lung mckniley are much improved from the comparison study. The previously noted infiltrates have resolved. The previously described nodular opacity in the left upper lobe is no longer apparent. No pulmonary mass lesion is seen. No pleural or pericardial effusion is observed. No adrenal lesion is visible. There is a granulomatous calcification in the spleen. There is an abdominal aortic aneurysm in the infrarenal abdominal aorta measuring 3.7 cm. This is below the bottom of the imaging field of view for the comparison study. The ascending aorta measures 3.7 cm in AP dimension at the level of the right main pulmonary artery, unchanged. No mediastinal adenopathy or hilar adenopathy is seen. IMPRESSION: The previously noted infiltrates have resolved. No pulmonary nodule or mass lesion is seen. Pleural effusions have resolved. Emphysematous changes persist throughout the lung mckinley particularly in the upper lobes. Cardiomegaly is again observed. Extensive vascular calcification and plaquing is seen in the thoracic aorta without evidence of dissection. There is a infrarenal abdominal aortic aneurysm noted incidentally in the upper abdomen 3.7 cm in greatest diameter. The abdominal aorta is incompletely evaluated. No pulmonary nodule or mass lesion is seen. Electronically Signed by Chadd Rodrigues MD 09/09/2019 08:11 A
== END ==
LOC: M RAD 13:36
PROVIDERS: ATTEND Student in an Organized Health Care Education/Training Program
DX: R91.1 Solitary pulmonary nodule (principal)
CPT/HCPCS: 71260; Q9967

== ENCOUNTER → 2019-09-24 | Outpatient (CLI) | payer MEDICARE ==
[~2019-09-24] MED LIST changes: -ISOVUE-370 76% 100ML VIAL As Ordered ONE
== END ==
LOC: M LABSMTC 10:14
PROVIDERS: ATTEND Internal Medicine Cardiovascular Disease
DX: Z03.818 Encounter for observation for suspected exposure to other biological agents ruled out (principal); Z11.59 Encounter for screening for other viral diseases
CPT/HCPCS: C9803; U0003

== ENCOUNTER → 2019-11-02 | Outpatient (REF) | payer MEDICARE ==
[~2019-11-02] MED LIST changes: -AMIO200T PO; +AMIO200T3 PO
[2019-12-02 13:24] LABS: INR 1.9; PROTHROMBIN TIME 22.2 SECONDS (11.8-14.0)
== END ==
LOC: M LABWUC 11:22 → M LAB REF 11:22
PROVIDERS: ATTEND Physician Assistant Surgical
DX: I25.10 Atherosclerotic heart disease of native coronary artery without angina pectoris (principal)

== ENCOUNTER → 2019-11-04 | Outpatient (REF) | payer MEDICARE ==
[2020-01-04 09:14] LABS: INR 1.67; PROTHROMBIN TIME 20.1 SECONDS (12.5-14.3)
== END ==
LOC: M SHH 08:38
PROVIDERS: ATTEND Internal Medicine Cardiovascular Disease
DX: I48.0 Paroxysmal atrial fibrillation (principal); I42.0 Dilated cardiomyopathy; I47.2 Ventricular tachycardia

== ENCOUNTER → 2019-11-09 | Outpatient (REF) | payer MEDICARE ==
[2020-01-04 15:28] LABS: INR 1.9; PROTHROMBIN TIME 22.2 SECONDS (12.5-14.3)
== END ==
LOC: M SHH 13:33
PROVIDERS: ATTEND Internal Medicine Cardiovascular Disease
DX: I48.0 Paroxysmal atrial fibrillation (principal)

== ENCOUNTER → 2019-11-16 | Outpatient (REF) | payer MEDICARE ==
[2019-11-16 16:20] LABS: INR 1.91; PROTHROMBIN TIME 22.3 SECONDS (11.8-14.0)
== END ==
LOC: M SHH 12:57
PROVIDERS: ATTEND Internal Medicine Cardiovascular Disease
DX: I48.0 Paroxysmal atrial fibrillation (principal)

== ENCOUNTER → 2019-11-24 | Outpatient (REF) | payer MEDICARE ==
[2019-11-24 14:28] LABS: INR 1.81; PROTHROMBIN TIME 21.4 SECONDS (11.8-14.0)
== END ==
LOC: M LABDRWAD 13:35
PROVIDERS: ATTEND Internal Medicine Cardiovascular Disease
DX: I48.0 Paroxysmal atrial fibrillation (principal)

== ENCOUNTER → 2019-12-01 | Outpatient (REF) | payer MEDICARE ==
[2019-12-01 14:44] LABS: INR 2.19; PROTHROMBIN TIME 24.9 SECONDS (11.8-14.0)
== END ==
LOC: M SHH 13:47
PROVIDERS: ATTEND Internal Medicine Cardiovascular Disease
DX: I48.0 Paroxysmal atrial fibrillation (principal)

== ENCOUNTER → 2020-07-06 | Outpatient (CLI) | payer MEDICARE ==
[~2020-07-06] MED LIST changes: +ASPI-569 PO; -ASPI81TAEC PO
== END ==
LOC: M LABSMTC 14:22
PROVIDERS: ATTEND Internal Medicine Cardiovascular Disease
DX: Z20.822 Contact with and (suspected) exposure to COVID-19 (principal)

== ENCOUNTER → 2020-12-23 | Outpatient (REF) | payer MEDICARE ==
[~2020-12-23] MED LIST changes: -KLOR10TA76 PO; +OMEP40CA4 PO; -OMEP40CA97 PO; +POTA-136 PO
== END ==
LOC: M SFHCPLAZ 14:24
DX: Z13.1 Encounter for screening for diabetes mellitus (principal); Z13.220 Encounter for screening for lipoid disorders

== ENCOUNTER → 2021-03-16 | Outpatient (REF) | payer MEDICARE | LOC: M SFHCPLAZ 16:49 | PROVIDERS: ATTEND Physician Assistant | DX: L72.3 Sebaceous cyst (principal) ==

== ENCOUNTER → 2022-06-14 | Outpatient (CLI) | payer MEDICARE ==
[~2022-06-14] MED LIST changes: -AMIO200T3 PO; +AMIO200T49 PO; +NYST-38 SS; -NYST50SS SS
[2022-06-14 13:07] LABS: BASO % 0.5 % (0.0-1.0); EOS # 0.1 10^3/uL (0.0-0.5); EOS % 1.3 % (0.0-3.0); HEMATOCRIT 42.9 % (42.0-52.0); HEMOGLOBIN 13.3 g/dl (13.5-17.5); LYMPH # 1.2 10^3/uL (1.5-5.0); LYMPH % 16.2 % (24.0-44.0); MEAN CORPUSCULAR HEMOGLOBIN 31.4 pg (27.0-33.0); MEAN CORPUSCULAR VOLUME 101.4 fl (80.0-96.0); MONO # 0.5 10^3/uL (0.0-0.8); MONO % 6.7 % (2.0-8.0); NEUTROPHILS # 5.7 10^3/uL (1.5-8.5); NEUTROPHILS % 74.9 % (36.0-66.0); PLATELET COUNT, AUTOMATED 147 10^3/uL (150-450); RED BLOOD COUNT 4.23 10^6/uL (4.30-6.10); WHITE BLOOD COUNT 7.6 10^3/uL (4.0-10.0)
[2022-06-14 13:39] LABS: ALBUMIN 4.2 G/DL (3.2-5.2); BILIRUBIN,TOTAL 0.8 MG/DL (0.3-1.2); CALCIUM LEVEL 9.2 MG/DL (8.3-10.6); CHOLESTEROL RISK RATIO 2.83 (<5); CREATININE FOR GFR 1.36 MG/DL (0.70-1.30); GLOMERULAR FILTRATION RATE 54.4 (>42); HDL CHOLESTEROL 43.4 MG/DL (>40); NON-HDL-C 79.6 MG/DL; POTASSIUM SERUM 4.4 MMOL/L (3.5-5.1); THYROID STIMULATING HORMONE 10.777 uIU/ML (0.55-4.78); TOTAL PROTEIN 6.6 G/DL (5.7-8.2)
[2022-06-14 13:40] LABS: FERRITIN 119.4 NG/ML (10.5-307.3); FREE T4 0.96 NG/DL (0.89-1.76)
== END ==
LOC: M WUC 09:14
PROVIDERS: ATTEND Family Medicine
DX: D50.9 Iron deficiency anemia, unspecified (principal); I50.22 Chronic systolic (congestive) heart failure; Z12.5 Encounter for screening for malignant neoplasm of prostate; I10 Essential (primary) hypertension; K27.9 Peptic ulcer, site unspecified, unspecified as acute or chronic, without hemorrhage or perforation
CPT/HCPCS: 36415; 80053; 80061; 82607; 82728; 83735; 83880; 84439; 84443; 85025; 85046; 86677; G0103

== ENCOUNTER → 2022-12-11 | Outpatient (REF) | payer MEDICARE | LOC: M SFHCPLAZ 15:35 | PROVIDERS: ATTEND Family Medicine | DX: E03.9 Hypothyroidism, unspecified (principal); R73.01 Impaired fasting glucose; D75.89 Other specified diseases of blood and blood-forming organs; D50.9 Iron deficiency anemia, unspecified; N18.31 Chronic kidney disease, stage 3a ==

== ENCOUNTER → 2022-12-12 | Outpatient (CLI) | payer MEDICARE | LOC: M WUC 11:03 | PROVIDERS: ATTEND Family Medicine | DX: R73.01 Impaired fasting glucose (principal); D75.89 Other specified diseases of blood and blood-forming organs; N18.31 Chronic kidney disease, stage 3a; D50.9 Iron deficiency anemia, unspecified; E03.9 Hypothyroidism, unspecified; Z53.8 Procedure and treatment not carried out for other reasons ==

== ENCOUNTER → 2022-12-13 | Outpatient (CLI) | payer MEDICARE ==
[2022-12-13 12:50] LABS: BASO % 0.3 % (0.0-1.0); EOS # 0.1 10^3/uL (0.0-0.5); HEMATOCRIT 39.9 % (42.0-52.0); HEMOGLOBIN 12.6 g/dl (13.5-17.5); LYMPH % 9.5 % (24.0-44.0); MEAN CORPUSCULAR HGB CONC 31.6 g/dl (32.0-36.5); MONO # 0.6 10^3/uL (0.0-0.8); MONO % 5.2 % (2.0-8.0); NEUTROPHILS # 9.1 10^3/uL (1.5-8.5); NEUTROPHILS % 83.6 % (36.0-66.0); PLATELET COUNT, AUTOMATED 147 10^3/uL (150-450); RED BLOOD COUNT 4.07 10^6/uL (4.30-6.10); WHITE BLOOD COUNT 10.9 10^3/uL (4.0-10.0)
[2022-12-13 12:57] LABS: FERRITIN 161.5 NG/ML (10.5-307.3); FREE T4 1.14 NG/DL (0.89-1.76); THYROID STIMULATING HORMONE 5.644 uIU/ML (0.55-4.78)
[2022-12-13 12:59] LABS: TOTAL 25(OH) VITAMIN D 36.4 NG/ML (20.0-100.0)
[2022-12-13 13:09] LABS: PTH INTACT 41.6 PG/ML (18.5-88.0)
[2022-12-13 13:11] LABS: HEMOGLOBIN A1c 5.5 % (4.0-6.0)
[2022-12-13 13:40] LABS: THYROID PEROXIDASE ANTIBODY < 28.0 U/ML (<60.0)
== END ==
LOC: M WUC 08:41
PROVIDERS: ATTEND Family Medicine
DX: E03.9 Hypothyroidism, unspecified (principal); D50.9 Iron deficiency anemia, unspecified; N18.31 Chronic kidney disease, stage 3a; D75.89 Other specified diseases of blood and blood-forming organs; R73.01 Impaired fasting glucose

== ENCOUNTER → 2023-05-02 | Outpatient (REF) | payer MEDICARE | LOC: M SFHCPLAZ 10:21 | PROVIDERS: ATTEND Family Medicine | DX: I50.20 Unspecified systolic (congestive) heart failure (principal); K74.00 Hepatic fibrosis, unspecified; D75.89 Other specified diseases of blood and blood-forming organs; D50.9 Iron deficiency anemia, unspecified; Z12.5 Encounter for screening for malignant neoplasm of prostate ==

== ENCOUNTER → 2023-05-29 | Outpatient (CLI) | payer MEDICARE ==
[2023-05-29 16:39] LABS: BASO % 0.5 % (0.0-1.0); EOS # 0.1 10^3/uL (0.0-0.5); EOS % 1.6 % (0.0-3.0); HEMATOCRIT 41.2 % (42.0-52.0); HEMOGLOBIN 12.7 g/dl (13.5-17.5); LYMPH # 1.1 10^3/uL (1.5-5.0); LYMPH % 16.7 % (24.0-44.0); MEAN CORPUSCULAR HEMOGLOBIN 30.8 pg (27.0-33.0); MEAN CORPUSCULAR HGB CONC 30.8 g/dl (32.0-36.5); MEAN CORPUSCULAR VOLUME 99.8 fl (80.0-96.0); MONO # 0.5 10^3/uL (0.0-0.8); MONO % 8.5 % (2.0-8.0); NEUTROPHILS # 4.6 10^3/uL (1.5-8.5); NEUTROPHILS % 72.4 % (36.0-66.0); PLATELET COUNT, AUTOMATED 139 10^3/uL (150-450); RED BLOOD COUNT 4.13 10^6/uL (4.30-6.10); WHITE BLOOD COUNT 6.3 10^3/uL (4.0-10.0)
[2023-05-29 17:03] LABS: PSA SCREENING 1.35 NG/ML (< 4.00)
[2023-05-29 17:05] LABS: BILIRUBIN,TOTAL 0.6 MG/DL (0.3-1.2); CALCIUM LEVEL 8.6 MG/DL (8.3-10.6); CREATININE FOR GFR 1.43 MG/DL (0.70-1.30); GLOMERULAR FILTRATION RATE 51.2 (>42); MAGNESIUM LEVEL 1.9 MG/DL (1.8-2.4); POTASSIUM SERUM 4.4 MMOL/L (3.5-5.1); TOTAL PROTEIN 6.5 G/DL (5.7-8.2)
[2023-05-29 17:07] LABS: INR 1.68; PROTHROMBIN TIME 19.2 SECONDS (12.5-14.5)
[2023-05-29 17:08] LABS: FERRITIN 116.6 NG/ML (10.5-307.3)
== END ==
LOC: M WUC 11:10
PROVIDERS: ATTEND Family Medicine
DX: D50.9 Iron deficiency anemia, unspecified (principal); I50.20 Unspecified systolic (congestive) heart failure; Z12.5 Encounter for screening for malignant neoplasm of prostate; K74.00 Hepatic fibrosis, unspecified; D75.89 Other specified diseases of blood and blood-forming organs
CPT/HCPCS: 36415; 80053; 82105; 82728; 83520; 83735; 83880; 85025; 85610; G0103

== ENCOUNTER → 2023-12-09 | Outpatient (REF) | payer MEDICARE | LOC: M SFHCPLAZ 19:31 | PROVIDERS: ATTEND Family Medicine | DX: I50.20 Unspecified systolic (congestive) heart failure (principal); I48.0 Paroxysmal atrial fibrillation; Z12.5 Encounter for screening for malignant neoplasm of prostate; E78.2 Mixed hyperlipidemia; R73.01 Impaired fasting glucose; D50.9 Iron deficiency anemia, unspecified; Z53.9 Procedure and treatment not carried out, unspecified reason ==

== ENCOUNTER → 2024-01-02 | Outpatient (CLI) | payer MEDICARE ==
[2024-01-02 17:16] LABS: BASO # 0.1 10^3/uL (0.0-0.2); BASO % 0.6 % (0.0-1.0); EOS # 0.1 10^3/uL (0.0-0.5); EOS % 0.9 % (0.0-3.0); HEMATOCRIT 41.5 % (42.0-52.0); HEMOGLOBIN 13.5 g/dl (13.5-17.5); LYMPH # 1.3 10^3/uL (1.5-5.0); LYMPH % 12.4 % (24.0-44.0); MEAN CORPUSCULAR HEMOGLOBIN 32.3 pg (27.0-33.0); MEAN CORPUSCULAR HGB CONC 32.5 g/dl (32.0-36.5); MEAN CORPUSCULAR VOLUME 99.3 fl (80.0-96.0); MONO # 0.7 10^3/uL (0.0-0.8); NEUTROPHILS # 8.2 10^3/uL (1.5-8.5); NEUTROPHILS % 78.7 % (36.0-66.0); PLATELET COUNT, AUTOMATED 145 10^3/uL (150-450); RED BLOOD COUNT 4.18 10^6/uL (4.30-6.10); WHITE BLOOD COUNT 10.4 10^3/uL (4.0-10.0)
[2024-01-02 17:43] LABS: HEMOGLOBIN A1c 5.7 % (4.0-6.0)
[2024-01-02 17:47] LABS: PSA SCREENING 1.39 NG/ML (< 4.00)
[2024-01-02 17:50] LABS: ALBUMIN 4.5 G/DL (3.2-5.2); BILIRUBIN,TOTAL 0.8 MG/DL (0.3-1.2); CALCIUM LEVEL 9.8 MG/DL (8.3-10.6); CHOLESTEROL RISK RATIO 3.07 (<5); CREATININE FOR GFR 1.49 MG/DL (0.70-1.30); FREE T4 1.39 NG/DL (0.89-1.76); GLOMERULAR FILTRATION RATE 48.7 (>42); HDL CHOLESTEROL 40.3 MG/DL (>40); LDL CHOLESTEROL 67.1 MG/DL (<100); MAGNESIUM LEVEL 2.1 MG/DL (1.8-2.4); NON-HDL-C 83.7 MG/DL; PERCENT SATURATION 38.6 % (19.7-50.0); POTASSIUM SERUM 4.7 MMOL/L (3.5-5.1); THYROID STIMULATING HORMONE 4.722 uIU/ML (0.55-4.78); TOTAL PROTEIN 7.3 G/DL (5.7-8.2)
== END ==
LOC: M WUC 14:50
PROVIDERS: ATTEND Family Medicine
DX: I48.0 Paroxysmal atrial fibrillation (principal); I50.20 Unspecified systolic (congestive) heart failure; E78.2 Mixed hyperlipidemia; R73.01 Impaired fasting glucose; Z12.5 Encounter for screening for malignant neoplasm of prostate; D50.9 Iron deficiency anemia, unspecified
CPT/HCPCS: 36415; 80053; 80061; 82607; 83036; 83550; 83735; 83880; 84238; 84439; 84443; 85025; 88300; G0103

== ENCOUNTER → 2024-01-06 | Outpatient (CLI) | payer MEDICARE | LOC: M PLALAB 14:42 | PROVIDERS: ATTEND Family Medicine | DX: D50.9 Iron deficiency anemia, unspecified (principal) ==

== ENCOUNTER → 2024-02-26 | Outpatient (CLI) | payer MEDICARE | LOC: M RAD 07:57 | PROVIDERS: ATTEND Family Medicine | DX: K74.00 Hepatic fibrosis, unspecified (principal); K76.0 Fatty (change of) liver, not elsewhere classified; I71.40 Abdominal aortic aneurysm, without rupture, unspecified ==

== ENCOUNTER → 2024-04-23 | Outpatient (REF) | payer MEDICARE | LOC: M SFHCPLAZ 14:30 | PROVIDERS: ATTEND Physician Assistant Medical | DX: J44.1 Chronic obstructive pulmonary disease with (acute) exacerbation (principal) ==

== ENCOUNTER → 2024-05-27 | Outpatient (CLI) | payer MEDICARE ==
[2024-05-27 18:29] LABS: BASO % 0.3 % (0.0-1.0); EOS # 0.1 10^3/uL (0.0-0.5); EOS % 0.6 % (0.0-3.0); HEMATOCRIT 41.7 % (42.0-52.0); HEMOGLOBIN 12.6 g/dl (13.5-17.5); LYMPH # 0.8 10^3/uL (1.5-5.0); LYMPH % 7.2 % (24.0-44.0); MEAN CORPUSCULAR HEMOGLOBIN 30.6 pg (27.0-33.0); MEAN CORPUSCULAR HGB CONC 30.2 g/dl (32.0-36.5); MEAN CORPUSCULAR VOLUME 101.2 fl (80.0-96.0); MONO # 0.7 10^3/uL (0.0-0.8); MONO % 6.2 % (2.0-8.0); NEUTROPHILS # 9.8 10^3/uL (1.5-8.5); NEUTROPHILS % 85.3 % (36.0-66.0); PLATELET COUNT, AUTOMATED 174 10^3/uL (150-450); RED BLOOD COUNT 4.12 10^6/uL (4.30-6.10); WHITE BLOOD COUNT 11.5 10^3/uL (4.0-10.0)
[2024-05-27 18:33] LABS: ALBUMIN 3.9 G/DL (3.2-5.2); BILIRUBIN,TOTAL 1.1 MG/DL (0.3-1.2); CALCIUM LEVEL 9.1 MG/DL (8.3-10.6); CREATININE FOR GFR 1.5 MG/DL (0.70-1.30); GLOMERULAR FILTRATION RATE 48.3 (>42); POTASSIUM SERUM 4.7 MMOL/L (3.5-5.1); TOTAL PROTEIN 6.6 G/DL (5.7-8.2)
== END ==
LOC: M WUC 12:38
PROVIDERS: ATTEND Internal Medicine Cardiovascular Disease
DX: I42.0 Dilated cardiomyopathy (principal); I48.0 Paroxysmal atrial fibrillation; I47.20 Ventricular tachycardia, unspecified; I12.9 Hypertensive chronic kidney disease with stage 1 through stage 4 chronic kidney disease, or unspecified chronic kidney disease; N18.30 Chronic kidney disease, stage 3 unspecified; I25.10 Atherosclerotic heart disease of native coronary artery without angina pectoris; I51.7 Cardiomegaly; Z95.828 Presence of other vascular implants and grafts

== ENCOUNTER → 2024-06-02 | Outpatient (CLI) | payer MEDICARE ==
[2024-06-02 16:59] LABS: ALBUMIN 3.8 G/DL (3.2-5.2); BILIRUBIN,TOTAL 1.1 MG/DL (0.3-1.2); CALCIUM LEVEL 9.2 MG/DL (8.3-10.6); CREATININE FOR GFR 1.64 MG/DL (0.70-1.30); GLOMERULAR FILTRATION RATE 43.6 (>42); POTASSIUM SERUM 4.6 MMOL/L (3.5-5.1); TOTAL PROTEIN 6.4 G/DL (5.7-8.2)
[2024-06-02 17:11] LABS: PROCALCITONIN 0.17 ng/ml
== END ==
LOC: M LAB 15:19
PROVIDERS: ATTEND Physician Assistant Medical
DX: J18.9 Pneumonia, unspecified organism (principal); R17 Unspecified jaundice

== ENCOUNTER → 2024-06-03 | Outpatient (REF) | payer MEDICARE | LOC: M LAB REF 13:22 | PROVIDERS: ATTEND Physician Assistant Medical | DX: J44.1 Chronic obstructive pulmonary disease with (acute) exacerbation (principal) ==

== ENCOUNTER → 2024-06-07 | Outpatient (REF) | payer MEDICARE | LOC: M LAB REF 10:30 | PROVIDERS: ATTEND Physician Assistant Medical | DX: J44.1 Chronic obstructive pulmonary disease with (acute) exacerbation (principal) ==

== ENCOUNTER → 2024-06-09 | Outpatient (CLI) | payer MEDICARE | LOC: M WUC 13:22 | PROVIDERS: ATTEND Internal Medicine Cardiovascular Disease | DX: I42.0 Dilated cardiomyopathy (principal) ==

== ENCOUNTER → 2024-06-15 | Outpatient (REF) | payer MEDICARE ==
[2024-06-15 15:08] LABS: BASO % 0.2 % (0.0-1.0); HEMATOCRIT 40.7 % (42.0-52.0); HEMOGLOBIN 12.4 g/dl (13.5-17.5); LYMPH # 0.5 10^3/uL (1.5-5.0); LYMPH % 6.2 % (24.0-44.0); MEAN CORPUSCULAR HEMOGLOBIN 30.7 pg (27.0-33.0); MEAN CORPUSCULAR HGB CONC 30.5 g/dl (32.0-36.5); MEAN CORPUSCULAR VOLUME 100.7 fl (80.0-96.0); MONO # 0.6 10^3/uL (0.0-0.8); MONO % 6.7 % (2.0-8.0); NEUTROPHILS # 7.3 10^3/uL (1.5-8.5); NEUTROPHILS % 86.7 % (36.0-66.0); PLATELET COUNT, AUTOMATED 116 10^3/uL (150-450); RED BLOOD COUNT 4.04 10^6/uL (4.30-6.10); WHITE BLOOD COUNT 8.4 10^3/uL (4.0-10.0)
[2024-06-15 15:12] LABS: CALCIUM LEVEL 8.9 MG/DL (8.3-10.6); CREATININE FOR GFR 1.63 MG/DL (0.70-1.30); GLOMERULAR FILTRATION RATE 43.9 (>42); POTASSIUM SERUM 4.6 MMOL/L (3.5-5.1)
== END ==
LOC: M LABWUC 14:23
PROVIDERS: ATTEND Internal Medicine Cardiovascular Disease
DX: I42.0 Dilated cardiomyopathy (principal)

== ENCOUNTER → 2024-06-24 | Outpatient (CLI) | payer MEDICARE ==
[2024-06-24 19:02] LABS: CALCIUM LEVEL 9.4 MG/DL (8.3-10.6); CREATININE FOR GFR 2.49 MG/DL (0.70-1.30); GLOMERULAR FILTRATION RATE 26.9 (>42); POTASSIUM SERUM 5.2 MMOL/L (3.5-5.1)
== END ==
LOC: M WUC 15:06
PROVIDERS: ATTEND Internal Medicine Cardiovascular Disease
DX: N18.30 Chronic kidney disease, stage 3 unspecified (principal)

== ENCOUNTER → 2024-07-02 | Outpatient (CLI) | payer MEDICARE ==
[2024-07-02 18:01] LABS: ALBUMIN 3.8 G/DL (3.2-5.2); BILIRUBIN,TOTAL 0.7 MG/DL (0.3-1.2); CALCIUM LEVEL 9.3 MG/DL (8.3-10.6); CREATININE FOR GFR 1.36 MG/DL (0.70-1.30); GLOMERULAR FILTRATION RATE 53.6 (>42); TOTAL PROTEIN 7.1 G/DL (5.7-8.2)
== END ==
LOC: M WUC 12:57
PROVIDERS: ATTEND Internal Medicine Cardiovascular Disease
DX: I47.20 Ventricular tachycardia, unspecified (principal); I48.0 Paroxysmal atrial fibrillation; I25.5 Ischemic cardiomyopathy; I10 Essential (primary) hypertension; I70.0 Atherosclerosis of aorta; Z95.810 Presence of automatic (implantable) cardiac defibrillator

== ENCOUNTER → 2024-07-16 | Outpatient (REF) | payer MEDICARE ==
[2024-07-16 14:37] LABS: CALCIUM LEVEL 9.4 MG/DL (8.3-10.6); CREATININE FOR GFR 1.58 MG/DL (0.70-1.30); GLOMERULAR FILTRATION RATE 44.8 (>42); POTASSIUM SERUM 4.2 MMOL/L (3.5-5.1)
== END ==
LOC: M LABWUC 13:46
PROVIDERS: ATTEND Internal Medicine Cardiovascular Disease
DX: N18.30 Chronic kidney disease, stage 3 unspecified (principal)

== ENCOUNTER → 2024-10-22 | Outpatient (CLI) | payer MEDICARE ==
[~2024-10-22] MED LIST changes: -AMIO200T49 PO; +AMIO200T54 PO
[2024-10-22 12:38] LABS: BASO # 0.1 10^3/uL (0.0-0.2); BASO % 0.7 % (0.0-1.0); EOS # 0.4 10^3/uL (0.0-0.5); EOS % 6.3 % (0.0-3.0); LYMPH # 1.1 10^3/uL (1.5-5.0); LYMPH % 15.9 % (24.0-44.0); MONO # 0.6 10^3/uL (0.0-0.8); MONO % 8.9 % (2.0-8.0); NEUTROPHILS # 4.7 10^3/uL (1.5-8.5); NEUTROPHILS % 67.8 % (36.0-66.0); PLATELET COUNT, AUTOMATED 157 10^3/uL (150-450)
[2024-10-22 12:41] LABS: ALT/SGPT 22.0 U/L (7.0-40); AST/SGOT 26.0 U/L (<34); CALCIUM LEVEL 9.5 MG/DL (8.3-10.6); CARBON DIOXIDE LEVEL 30.0 MMOL/L (20-31); CHLORIDE LEVEL 102.0 MMOL/L (98-107); CREATININE FOR GFR 1.61 MG/DL (0.70-1.30); FREE T4 1.38 NG/DL (0.89-1.76); GLOMERULAR FILTRATION RATE 43.5 (>42); IRON (FE) 75.0 UG/DL (65-175); MAGNESIUM LEVEL 2.4 MG/DL (1.8-2.4); PERCENT SATURATION 26.8 % (19.7-50.0); POTASSIUM SERUM 4.2 MMOL/L (3.5-5.1); PTH INTACT 61.9 PG/ML (18.5-88.0); SODIUM LEVEL 141.0 MMOL/L (136-145)
[2024-10-22 12:42] LABS: TOTAL 25(OH) VITAMIN D 51.9 NG/ML (20.0-100.0)
[2024-10-22 12:59] LABS: ESTIMATED AVERAGE GLUCOSE 126.0 MG/DL (60-110)
== END ==
LOC: M WUC 09:32
PROVIDERS: ATTEND Family Medicine
DX: I48.0 Paroxysmal atrial fibrillation (principal); I50.20 Unspecified systolic (congestive) heart failure; D50.9 Iron deficiency anemia, unspecified; R73.01 Impaired fasting glucose; K74.00 Hepatic fibrosis, unspecified; E55.9 Vitamin D deficiency, unspecified; E78.2 Mixed hyperlipidemia

== ENCOUNTER → 2025-03-15 | Outpatient (CLI) | payer MEDICARE ==
[2025-03-15 14:38] LABS: BASO # 0.1 10^3/uL (0.0-0.2); BASO % 0.6 % (0.0-1.0); EOS # 0.3 10^3/uL (0.0-0.5); EOS % 3.2 % (0.0-3.0); LYMPH # 0.9 10^3/uL (1.5-5.0); LYMPH % 10.4 % (24.0-44.0); MONO # 0.6 10^3/uL (0.0-0.8); MONO % 7.2 % (2.0-8.0); NEUTROPHILS # 6.8 10^3/uL (1.5-8.5); NEUTROPHILS % 78.5 % (36.0-66.0); PLATELET COUNT, AUTOMATED 168 10^3/uL (150-450)
[2025-03-15 14:40] LABS: ALT/SGPT 27.0 U/L (7.0-40); AST/SGOT 25.0 U/L (<34); CALCIUM LEVEL 9.7 MG/DL (8.3-10.6); CARBON DIOXIDE LEVEL 30.0 MMOL/L (20-31); CHLORIDE LEVEL 103.0 MMOL/L (98-107); CHOLESTEROL LEVEL 133.0 MG/DL (<200); CHOLESTEROL RISK RATIO 2.92 (<5); CREATININE FOR GFR 1.58 MG/DL (0.70-1.30); GLOMERULAR FILTRATION RATE 44.5 (>42); IRON (FE) 98.0 UG/DL (65-175); LDL CHOLESTEROL 71.5 MG/DL (<100); MAGNESIUM LEVEL 2.6 MG/DL (1.8-2.4); NON-HDL-C 87.5 MG/DL; PERCENT SATURATION 35.0 % (19.7-50.0); POTASSIUM SERUM 5.4 MMOL/L (3.5-5.1); PSA SCREENING 3.0 NG/ML (< 4.00); PTH INTACT 54.4 PG/ML (18.5-88.0); SODIUM LEVEL 141.0 MMOL/L (136-145); TRIGLYCERIDES LEVEL 80.0 MG/DL (<150)
[2025-03-15 14:44] LABS: ESTIMATED AVERAGE GLUCOSE 126.0 MG/DL (60-110); TOTAL 25(OH) VITAMIN D 48.3 NG/ML (20.0-100.0)
[2025-03-15 14:45] LABS: FREE T4 1.34 NG/DL (0.89-1.76)
[2025-03-16 15:43] LABS: BERMUDA GRASS IGE < 0.10 kU/L (<0.10); D001 IGE D PTERONYSSINUS 0.13 kU/L (<0.10); D002-IGE D FARINAE < 0.10 kU/L (<0.10); E001-IGE CAT DANDER < 0.10 kU/L (<0.10); E005-IGE DOG DANDER < 0.10 kU/L (<0.10); I006 IGE COCKROACH 0.10 kU/L (<0.10); IMMUNOGLOBULIN E FOR ALLERGENS 467 kU/L (<OR=114); M006 IGE ALTERNIA ALTERNATA < 0.10 kU/L (<0.10); M1-PENICILLIUM NOTATUM < 0.10 kU/L (<0.10); MOUSE URINE IGE < 0.10 kU/L (<0.10); TIMOTHY GRASS IGE < 0.10 kU/L (<0.10)
[2025-03-16 15:51] LABS: BIRCH IGE < 0.10 kU/L (<0.10); COMMON RAGWEED SHORT IGE < 0.10 kU/L (<0.10); ELM IGE < 0.10 kU/L (<0.10); MUGWORT IGE < 0.10 kU/L (<0.10); OAK IGE < 0.10 kU/L (<0.10); ROUGH PIGWEED IGE < 0.10 kU/L (<0.10); SHEEP SORREL IGE < 0.10 kU/L (<0.10); T001-IGE MAPLE BOX ELDER < 0.10 kU/L (<0.10); T006-IGE MOUNTAIN CEDAR < 0.10 kU/L (<0.10); T014 COTTONWOOD IGE < 0.10 kU/L (<0.10); WALNUT TREE IGE < 0.10 kU/L (<0.10); WHITE ASH IGE < 0.10 kU/L (<0.10); WHITE MULBERRY IGE < 0.10 kU/L (<0.10)
== END ==
LOC: M PLALAB 10:55
PROVIDERS: ATTEND Family Medicine
DX: I48.0 Paroxysmal atrial fibrillation (principal); I50.20 Unspecified systolic (congestive) heart failure; E78.2 Mixed hyperlipidemia; R73.01 Impaired fasting glucose; E55.9 Vitamin D deficiency, unspecified; D50.9 Iron deficiency anemia, unspecified; J30.89 Other allergic rhinitis; Z12.5 Encounter for screening for malignant neoplasm of prostate